=== PATIENT | female | born 1960 | race Caucasian/White ===

== ENCOUNTER → 2017-12-29 09:20 | Outpatient (CLI) | payer MEDICARE, SELFPAY ==
[2017-12-29 09:52] LABS: Absolute Lymphocyte Count 2.17 X10^3/ul (0.83-4.51); Absolute Neutrophil Count 1.9 X10^3/uL (2.0-7.7); Basophil# 0.07 X10^3/uL; Basophil% 1.5 % (0-1); Eosinophil# 0.11 X10^3/uL; Eosinophils% 2.4 % (0-5); Hematocrit 37.8 % (37-47); Lymphocyte # 2.17 X10^3/ul (4.0); Mean Corp Hgb Conc 34.4 g/gl (32-36); Mean Corpuscular Volume 90.2 fL (81-99); Mean Platelet Vol. 9.1 fl (6.2-12.0); Monocyte# 0.36 X10^3/uL; Monocyte% 7.8 % (0-10); Neutrophil % 41.1 % (47-70); Platelet Count 301 K/mm3 (150-450); RBC Distribution Width SD 42.1 fl (35.1-43.9); Red Blood Count 4.19 M/mm3 (4.2-5.4); White Blood Count 4.6 K/mm3 (4.4-11.0)
[2017-12-29 09:53] LABS: POSITIVE COUNT NO; POSITIVE DIFFERENTIAL NO; POSITIVE MORPHOLOGY NO
[2017-12-29 10:16] LABS: Hemoglobin A1c 6.5 % (4.2-6.3)
[2017-12-29 10:21] LABS: AST(SGOT) 14 U/L (15-37); Alanine Aminotransfer ALT/SGPT 24 U/L (13-56); Albumin, Serum 3.5 g/dL (3.2-5.0); Alkaline Phosphatase 72 U/L (45-117); Anion Gap 8 (5-15); BUN 10 mg/dL (7-18); BUN/Creat Ratio 16.9 RATIO (10-20); Calcium,Total 8.4 mg/dL (8.5-10.1); Chloride 106 mmol/L (98-107); Cholesterol 109 mg/dL (200); Creatinine, Serum 0.59 mg/dL (0.55-1.02); EST Glomerular Filtration Rate 110 mL/min (>60); Est Glom Filt Rate - Afr Amer 133 mL/min (>60); Globulin 3.5 g/dL (2.2-4.2); Glucose 102 mg/dL (74-106); High Density Lipoprotein 32 mg/dL; Potassium 3.2 mmol/L (3.5-5.1); Sodium Level 144 mmol/L (136-145); Triglycerides 93 mg/dL; Very Low Density Lipoprotein 19 mg/dL (5-40)
[2017-12-29 10:36] LABS: Microalbumin,Random Urine 22.3 mg/L (NO RANGE EST.); Microalbumin:Creatinine Ratio 9.6 mg/g CRE (<30 mg/g CRE)
[2017-12-30 11:50] LABS: Vitamin D,25 Hydroxy 102.5 ng/mL (29.95-100.01)
== END ==
PROVIDERS: Family Provider Family Medicine; PCP Family Medicine; Visit Provider Family Medicine
DX: I10 Essential (primary) hypertension (principal); E11.9 Type 2 diabetes mellitus without complications; E78.5 Hyperlipidemia, unspecified; E55.9 Vitamin D deficiency, unspecified
CPT/HCPCS: 36415; 80053; 80061; 82043; 82306; 82570; 83036; 85025

== ENCOUNTER → 2018-01-09 09:12 | Outpatient (CLI) | payer MEDICARE, SELFPAY ==
[2018-01-09 12:47] LABS: Vitamin D,25 Hydroxy 86.7 ng/mL (29.95-100.01)
== END ==
PROVIDERS: Family Provider Family Medicine; PCP Family Medicine; Visit Provider Family Medicine
DX: E55.9 Vitamin D deficiency, unspecified (principal)
CPT/HCPCS: 36415; 82306

== ENCOUNTER 2018-02-10 15:30 | Outpatient (RCR) | payer MEDICARE, SELFPAY ==
--- NOTE | 2018-02-08 09:15 | HP.PTEVAL_ITS ---
Patient's Visit Information BEL FREEMAN is a 57 year old F referred to Physical Therapy by Richard Birmingham MD with a diagnosis of BPPV. Date of Evaluation: 02/08/18 Physical Therapist: Richard Curtis DPT, OC - Visit Plan Frequency: 1-2x /Week Duration: 2-4 Weeks Plan: 1-2x/week for 2-4 weeks as needed for positional treatments and exercises - Subjective Subjective: Had vertigo 10-15 years ago and it has come back in the last 3 months. Insidious onset. Feels like spinning, lightheadedness with lying or turning. Can last seconds. Life is normal otherwise, balance feels good. Sleep is good. Activities are normal, not employed. Hobbies include gardening which can be difficult b/c looking down can cause the problem. Basic ADLs are without problems unless she is dizzy at the time and she has to rest. - Objective c/s AROM WFL and painfree. - R hallpike, = L for up torsional nystagmus delayed and lasting 15 seconds. Treated with L Florian. Following that then had a + L Hallpike for geotropic nystagmus lasting 25 seconds, treated with Florian again. Then had dizzyness with L hallpike and needed to sit up as she had dry heaves and felt nauseous. Wanted to stop treatment at that point. Walked out I adn feeling better and without balance issues. - Goals Goal 1:: Abolish dizzyness with lying down adn looking down. Goal Time Frame: 2-4 Weeks Goal 2:: Garden normally without symptoms. Goal Time Frame: 2-4 Weeks - Rehabilitation Potential Physical Therapy Diagnosis: BPPV, starting L post canal possibly turning into horizontal canal. Rehabilitation Potential: Good - Anticipated Interventions Patient/Client Instruction: Educate patient on: Condition, Plan of Care Other: to decrease dizzyness Comment: positional ex and treatments For the Purpose of:: To improve ability of physical actions for home/community/ work/leisure Other: to abolish dizzyness Thank you for the opportunity to evaluate your patient. For Medicare and Medicare HMO plans, please review the plan of care and approve it. It will need to be FAXED BACK to us at [phone] for Medicare purposes. Please let me know if there are questions or concerns regarding this plan of care. Physician Signature: Date:
--- NOTE | 2018-02-10 15:50 | HP.PTDCSUM ---
HP - PT D/C Summary It has been my pleasure to treat BEL FREEMAN under orders from Richard Birmingham MD, for the diagnosis of BPPV for a total of 2 visit(s). Discharge Date: 02/10/18 Please see the following information for a summary of their discharge status. - Subjective Subjective: Better. Did exercise without any dizzyness yesterday and today. Lie down last night without a problem. Mowed yard yard and planted without symptoms. Nothing bad looking up. - Overall Improvement % Improvement: 99 - Objective Objective/Function: - B hallpike and - roll test. VOR walking si no problem and asymptomatic. Balance is good. - Goals Goal 1:: Abolish dizzyness with lying down adn looking down. Goal Progress: Goal Met Goal 2:: Garden normally without symptoms. Goal Progress: Goal Met - Plan Plan: D/C - D/C Information Discharge Comments: Dizzy resolved and negative positional testing. Blaance is good and activities/gardening/sleeping position back to normal. If there are questions or concerns regarding this patient's physical therapy, please feel free to call me at [phone]. Thank you for the referral of this patient. Sincerely, Richard Curtis, [place], OC
== END 2018-02-10 19:00 | disposition home or self-care (01) ==
LOC: PT 15:30
PROVIDERS: Family Provider Family Medicine; PCP Family Medicine; Visit Provider Otolaryngology
DX: H81.10 Benign paroxysmal vertigo, unspecified ear (principal)
CPT/HCPCS: 97161; 97530

== ENCOUNTER → 2018-03-21 07:47 | Outpatient (CLI) | payer MEDICARE, SELFPAY ==
--- NOTE | 2018-03-21 07:48 | CT_ITS ---
STUDY: CTA CHEST/THORAX REASON FOR EXAM: Female, 58 years old. Thoracic aortic aneurysm follow-up. RADIATION DOSAGE (If Supplied By Facility): CTDIvol = ( 15.98 ) mGy, DLP = ( 735.18 ) mGycm TECHNIQUE: The examination was performed with the intravenous administration of 100 ml of Isovue 300 contrast material. Post-processing of the angiographic images was performed, with multiplanar reformation and 3D reconstruction. Individualized dose optimization techniques were used for this CT. COMPARISON: IV contrast-enhanced CT chest/thorax March 16, 2017. FINDINGS: Normal enhancement of the main pulmonary artery and right and left pulmonary arteries. Normal enhancement of the bilateral peripheral pulmonary arteries. There is no demonstrated pulmonary embolism. The mid ascending aorta is 3.7 x 3.95 cm on series 602 image 120, series 601 image 144. On axial series 2 image 46 (which does not fully account for the curved contour of the aorta, the diameters are 3.9 x 3.5 cm. The aortic root at the level of the sinuses of Valsalva is 3.8 x 4.15 cm. There is stable atherosclerotic calcification of the aortic arch and proximal brachiocephalic arteries. There is no demonstrated aortic dissection. Normal heart and pericardium. There are calcifications of the coronary arteries. There is a 1.4 x 0.75 x 0.9 cm precarinal lymph node with a fatty hilus. No suspicious adenopathy Normal hilar regions. Normal visualized trachea and bronchi. There is subsegmental atelectasis or scarring in the posterior medial basilar right lower lobe and posterolateral basilar left lower lobe. Normal pleura. Normal chest wall structures. There are stable multilevel degenerative changes of the thoracic spine. There are well-corticated shallow invaginations of numerous thoracic vertebral and upper lumbar endplates, consistent with benign Schmorl's nodes. There is a stable small to moderate size retrocardiac paraesophageal hiatal hernia. Subtle haziness noted in the central mesentery. CT/CTA Chest W/WO Contrast IMPRESSION: 1. Stable 3.95 cm fusiform ectasia of the ascending aorta. 2. No demonstrated pulmonary embolism or arterial dissection. 3. Atelectasis or scarring in the inferior lung bases again noted. 4. Moderate vascular calcifications of the coronary arteries. 5. Stable degenerative changes and multilevel focal endplate invaginations of the thoracic spine. 6. Stable small to moderate size retrocardiac hiatal hernia. Electronically Signed: Harmeet Torres MD at 20:03 EDT , Service support ,
[2018-03-21 08:00] LABS: CREATININE FINGERSTICK 0.7 mg/dL (0.55-1.02)
== END ==
PROVIDERS: Family Provider Family Medicine; PCP Family Medicine; Visit Provider Internal Medicine Cardiovascular Disease
DX: I71.2 Thoracic aortic aneurysm, without rupture (principal)
CPT/HCPCS: 71275; Q9967

== ENCOUNTER → 2018-03-28 08:18 | Outpatient (CLI) | payer MEDICARE, SELFPAY ==
[2018-03-28 11:34] LABS: Absolute Lymphocyte Count 1.76 X10^3/ul (0.83-4.51); Basophil# 0.02 X10^3/uL; Basophil% 0.5 % (0-1); Eosinophil# 0.06 X10^3/uL; Eosinophils% 1.4 % (0-5); Hematocrit 39.5 % (37-47); Hemoglobin 12.8 g/dl (12.0-15.0); Lymphocyte # 1.76 X10^3/ul (4.0); Lymphocyte % 42.4 % (19-41); Mean Corp Hgb Conc 32.4 g/gl (32-36); Mean Corpuscular Volume 92.5 fL (81-99); Mean Platelet Vol. 9.7 fl (6.2-12.0); Monocyte# 0.33 X10^3/uL; Neutrophil # 1.98 X10^3/uL (2.7-7.7); Neutrophil % 47.7 % (47-70); Platelet Count 283 K/mm3 (150-450); RBC Distribution Width CV 13.3 % (11.6-14.6); RBC Distribution Width SD 44.6 fl (35.1-43.9); Red Blood Count 4.27 M/mm3 (4.2-5.4); White Blood Count 4.2 K/mm3 (4.4-11.0)
[2018-03-28 11:35] LABS: POSITIVE COUNT NO; POSITIVE DIFFERENTIAL NO; POSITIVE MORPHOLOGY NO
[2018-03-28 11:52] LABS: AST(SGOT) 15 U/L (15-37); Alanine Aminotransfer ALT/SGPT 23 U/L (13-56); Albumin, Serum 3.6 g/dL (3.2-5.0); Alkaline Phosphatase 68 U/L (45-117); Anion Gap 7 (5-15); BUN 11 mg/dL (7-18); BUN/Creat Ratio 18.5 RATIO (10-20); Chloride 105 mmol/L (98-107); Cholesterol 138 mg/dL (200); EST Glomerular Filtration Rate 109 mL/min (>60); Est Glom Filt Rate - Afr Amer 132 mL/min (>60); Globulin 3.6 g/dL (2.2-4.2); Glucose 101 mg/dL (74-106); High Density Lipoprotein 39 mg/dL; Potassium 3.9 mmol/L (3.5-5.1); Protein, Total 7.2 g/dL (6.4-8.2); Sodium Level 140 mmol/L (136-145); Triglycerides 150 mg/dL; Very Low Density Lipoprotein 30 mg/dL (5-40)
[2018-03-28 11:58] LABS: Hemoglobin A1c 6.4 % (4.2-6.3)
[2018-03-28 12:06] LABS: Microalbumin,Random Urine 14.4 mg/L (NO RANGE EST.); Microalbumin:Creatinine Ratio 9.5 mg/g CRE (<30 mg/g CRE)
[2018-03-29 09:49] LABS: Vitamin D,25 Hydroxy 56.2 ng/mL (29.95-100.01)
== END ==
PROVIDERS: Visit Provider Family Medicine
DX: I10 Essential (primary) hypertension (principal); E11.9 Type 2 diabetes mellitus without complications; E55.9 Vitamin D deficiency, unspecified
CPT/HCPCS: 36415; 80053; 80061; 82043; 82306; 82570; 83036; 85025

== ENCOUNTER 2018-05-09 10:00 | Outpatient (RCR) | payer MEDICARE, SELFPAY | END 2018-05-26 23:59 | LOC: DC 10:00 | PROVIDERS: Family Provider Family Medicine; PCP Family Medicine; Visit Provider Family Medicine | DX: E11.9 Type 2 diabetes mellitus without complications (principal); Z71.3 Dietary counseling and surveillance | CPT/HCPCS: 97802; G0108 ==

== ENCOUNTER 2018-06-01 09:30 | Outpatient (RCR) | payer MEDICARE, SELFPAY | END 2018-06-25 23:59 | LOC: DC 09:30 | PROVIDERS: Family Provider Family Medicine; PCP Family Medicine; Visit Provider Family Medicine | DX: E11.9 Type 2 diabetes mellitus without complications (principal); Z71.3 Dietary counseling and surveillance ==

== ENCOUNTER → 2018-08-21 08:18 | Outpatient (CLI) | payer MEDICARE, SELFPAY ==
[2018-08-21 08:28] LABS: Mucous, Urine 0 SEEN /hpf (<or=2+); Red Blood Cells-Urine 0 SEEN /hpf (0-5)
[2018-08-21 12:02] LABS: Color, Urine Yellow (Yellow); Glucose, Dipstick Normal (Normal); Ketone-Dipstick Negative (Negative); Leukocyte Esterase-Dipstick 100 /ul (Negative); Nitrite-Dipstick Negative (Negative); Occult Blood-Urine 10 /ul (Negative); Protein-Dipstick 15 mg/dl (Negative); Urine Bilirubin Dipstick Negative (Negative); Urine Clarity Sl. Cloudy (Clear); Urine Urobilinogen Normal (Normal)
[2018-08-21 12:22] LABS: Bacteria RARE /hpf (None Seen); Squamous Epithelial Cells - UA 0-5 SEEN /hpf (5-10); White Blood Cells 0-5 SEEN /hpf (0-5)
[2018-08-21 12:24] LABS: Absolute Lymphocyte Count 1.95 X10^3/ul (0.83-4.51); Absolute Neutrophil Count 1.8 X10^3/uL (2.0-7.7); Basophil# 0.02 X10^3/uL; Basophil% 0.5 % (0-1); Eosinophil# 0.05 X10^3/uL; Eosinophils% 1.2 % (0-5); Hematocrit 39.8 % (37-47); Hemoglobin 12.9 g/dl (12.0-15.0); Lymphocyte # 1.95 X10^3/ul (4.0); Lymphocyte % 47.6 % (19-41); Mean Corp Hgb Conc 32.4 g/gl (32-36); Mean Corpuscular Volume 92.6 fL (81-99); Mean Platelet Vol. 9.4 fl (6.2-12.0); Microalbumin,Random Urine 17.1 mg/L (NO RANGE EST.); Microalbumin:Creatinine Ratio 7.8 mg/g CRE (<30 mg/g CRE); Monocyte# 0.32 X10^3/uL; Monocyte% 7.8 % (0-10); Neutrophil # 1.76 X10^3/uL (2.7-7.7); Neutrophil % 42.9 % (47-70); Platelet Count 297 K/mm3 (150-450); RBC Distribution Width CV 13.5 % (11.6-14.6); RBC Distribution Width SD 45.6 fl (35.1-43.9); White Blood Count 4.1 K/mm3 (4.4-11.0)
[2018-08-21 12:25] LABS: POSITIVE COUNT NO; POSITIVE DIFFERENTIAL NO; POSITIVE MORPHOLOGY NO
[2018-08-21 12:35] LABS: ALB/GLOB Ratio 1.1 RATIO (0.9-2.4); AST(SGOT) 20 U/L (15-37); Alanine Aminotransfer ALT/SGPT 27 U/L (13-56); Albumin, Serum 3.7 g/dL (3.2-5.0); Alkaline Phosphatase 72 U/L (45-117); Anion Gap 13 (5-15); BUN 11 mg/dL (7-18); BUN/Creat Ratio 17.4 RATIO (10-20); Chloride 104 mmol/L (98-107); Cholesterol 138 mg/dL (200); Creatinine, Serum 0.63 mg/dL (0.55-1.02); EST Glomerular Filtration Rate 102 mL/min (>60); Est Glom Filt Rate - Afr Amer 123 mL/min (>60); Globulin 3.5 g/dL (2.2-4.2); Glucose 101 mg/dL (74-106); High Density Lipoprotein 42 mg/dL; Potassium 3.6 mmol/L (3.5-5.1); Protein, Total 7.2 g/dL (6.4-8.2); Sodium Level 144 mmol/L (136-145); Triglycerides 144 mg/dL; Very Low Density Lipoprotein 29 mg/dL (5-40)
[2018-08-21 12:37] LABS: Hemoglobin A1c 6.7 % (4.2-6.3)
[2018-08-21 12:45] LABS: Vitamin D,25 Hydroxy 52.8 ng/mL (29.95-100.01)
== END ==
PROVIDERS: Family Provider Family Medicine; PCP Family Medicine; Visit Provider Family Medicine
DX: E78.5 Hyperlipidemia, unspecified (principal); E11.9 Type 2 diabetes mellitus without complications; I10 Essential (primary) hypertension; E55.9 Vitamin D deficiency, unspecified
CPT/HCPCS: 36415; 80053; 80061; 81001; 82043; 82306; 82570; 83036; 85025

== ENCOUNTER → 2019-01-01 | Outpatient (CLI) | payer MEDICARE, SELFPAY ==
[2019-01-01 10:00] LABS: Absolute Lymphocyte Count 1.82 X10^3/ul (0.83-4.51); Absolute Neutrophil Count 1.6 X10^3/uL (2.0-7.7); Basophil# 0.03 X10^3/uL; Basophil% 0.8 % (0-1); Eosinophil# 0.08 X10^3/uL; Eosinophils% 2.1 % (0-5); Hematocrit 39.1 % (37-47); Hemoglobin 13.2 g/dl (12.0-15.0); Lymphocyte # 1.82 X10^3/ul (4.0); Lymphocyte % 47.9 % (19-41); Mean Corp Hgb Conc 33.8 g/gl (32-36); Mean Corpuscular Hgb 30.8 pg (27.0-32.0); Mean Corpuscular Volume 91.4 fL (81-99); Mean Platelet Vol. 9.8 fl (6.2-12.0); Monocyte# 0.32 X10^3/uL; Monocyte% 8.4 % (0-10); Neutrophil # 1.55 X10^3/uL (2.7-7.7); Neutrophil % 40.8 % (47-70); Platelet Count 280 K/mm3 (150-450); RBC Distribution Width CV 13.3 % (11.6-14.6); RBC Distribution Width SD 44.2 fl (35.1-43.9); Red Blood Count 4.28 M/mm3 (4.2-5.4); White Blood Count 3.8 K/mm3 (4.4-11.0)
[2019-01-01 10:06] LABS: POSITIVE COUNT NO; POSITIVE DIFFERENTIAL NO; POSITIVE MORPHOLOGY NO
[2019-01-01 10:15] LABS: Hemoglobin A1c 6.1 % (4.2-6.3)
[2019-01-01 10:20] LABS: Microalbumin,Random Urine 17.7 mg/L (NO RANGE EST.); Microalbumin:Creatinine Ratio 10.7 mg/g CRE (<30 mg/g CRE)
[2019-01-01 10:39] LABS: ALB/GLOB Ratio 1.2 RATIO (0.9-2.4); AST(SGOT) 15 U/L (15-37); Alanine Aminotransfer ALT/SGPT 22 U/L (13-56); Albumin, Serum 3.8 g/dL (3.2-5.0); Alkaline Phosphatase 69 U/L (45-117); Anion Gap 5 (5-15); BUN 11 mg/dL (7-18); BUN/Creat Ratio 18.3 RATIO (10-20); Calcium,Total 8.9 mg/dL (8.5-10.1); Chloride 106 mmol/L (98-107); Cholesterol 150 mg/dL (200); EST Glomerular Filtration Rate 108 mL/min (>60); Est Glom Filt Rate - Afr Amer 131 mL/min (>60); Globulin 3.3 g/dL (2.2-4.2); Glucose 116 mg/dL (74-106); High Density Lipoprotein 44 mg/dL; Potassium 3.5 mmol/L (3.5-5.1); Protein, Total 7.1 g/dL (6.4-8.2); Sodium Level 141 mmol/L (136-145); Triglycerides 181 mg/dL; Very Low Density Lipoprotein 36 mg/dL (5-40)
== END | disposition home or self-care (01) ==
LOC: MTLAB 08:00
PROVIDERS: Family Provider Family Medicine; PCP Family Medicine; Visit Provider Family Medicine
DX: I10 Essential (primary) hypertension (principal); E11.9 Type 2 diabetes mellitus without complications; E78.5 Hyperlipidemia, unspecified
CPT/HCPCS: 36415; 80053; 80061; 82043; 82570; 83036; 85025

== ENCOUNTER → 2019-01-02 | Outpatient (CLI) | payer MEDICARE, SELFPAY ==
[2019-01-02 09:23] VITALS: BMI 37.2
[2019-01-06 15:53] LABS: HPV APTIMA, High Risk Negative (Negative)
== END | disposition home or self-care (01) ==
LOC: LABSPEC 12:52
PROVIDERS: Family Provider Family Medicine; PCP Family Medicine; Referring Provider Obstetrics & Gynecology; Visit Provider Obstetrics & Gynecology
DX: Z12.4 Encounter for screening for malignant neoplasm of cervix (principal)
CPT/HCPCS: 87624; 88175; G0145

== ENCOUNTER → 2019-01-25 | Outpatient (CLI) | payer MEDICARE, SELFPAY ==
[2019-01-02 09:23] VITALS: BMI 37.2
--- NOTE | 2019-01-25 07:38 | BI_ITS ---
MAMMOGRAPHY - BILATERAL SCREENING REASON FOR EXAM: Female, 58 years old. Routine annual screening examination. PERTINENT HISTORY: Aunt with breast cancer. TECHNIQUE: Digital bilateral breast andrea (3D mammographic acquisition) in the CC and MLO projections. 2-D mediolateral oblique (MLO) and craniocaudad (CC) views of both breasts were obtained. CAD: Full Field Digital Mammography with Computer Added Detection was performed. COMPARISON: Comparison is made with prior study dated October 07, 2017 and September 30, 2016. FINDINGS: Breast Composition: There are scattered areas of fibroglandular density. There are no dominant masses or suspicious calcifications. No other significant abnormalities are identified. There has been no significant change since the prior study. BI/SCREEN MAMM (CAD) W/ANDREA BILAT IMPRESSION: Stable bilateral screening mammogram. Yearly follow-up mammogram recommended. (A) ASSESSMENT CATEGORY: BIRADS Category 1: Negative. A letter regarding these results will be sent to the patient by the facility within 30 days. Approximately 10% of breast cancers are not detected by mammography. A normal mammogram should not delay biopsy of a clinically suspicious abnormality. [id number] Electronically Signed: Issac Monae, at 10:59 EDT , Service support ,
== END | disposition home or self-care (01) ==
PROVIDERS: Family Provider Family Medicine; PCP Family Medicine; Referring Provider Obstetrics & Gynecology; Visit Provider Obstetrics & Gynecology
DX: Z12.31 Encounter for screening mammogram for malignant neoplasm of breast (principal)
CPT/HCPCS: 77063; 77067

== ENCOUNTER → 2019-05-01 | Outpatient (CLI) | payer MEDICARE, SELFPAY ==
[2019-04-11 15:46] VITALS: BMI 36.8
--- NOTE | 2019-05-01 09:58 | CT_ITS ---
STUDY: CTA CHEST WITH CONTRAST REASON FOR EXAM: Female, 59 years old. Follow up thoracic aortic aneurysm. RADIATION DOSAGE (If Supplied By Facility): CTDIvol = ( 14.82 ) mGy, DLP = ( 639.50 ) mGycm TECHNIQUE: Transaxial imaging was performed following intravenous administration of 100ML ml of Isovue 300 contrast material. Coronal and sagittal reformatted images were created. Individualized dose optimization techniques were used for this CT. COMPARISON: 04/20/2018 FINDINGS: There is a stable 4.1 x 3.8 cm aneurysm of the ascending aorta. The aortic arch and descending thoracic aorta are normal in caliber. There is no evidence of thoracic aortic dissection. There is no evidence of pulmonary embolus. There are no pulmonary infiltrates or pleural effusions. There is stable scarring at the lung bases. There is no pneumothorax. The heart and pericardium are within normal limits. There is no thoracic lymphadenopathy. There is no evidence of thoracic aortic aneurysm. There is a stable hiatal hernia. There are no destructive osseous lesions. CT/Chest WITH Contrast IMPRESSION: Stable 4.1 x 3.8 cm ascending aortic aneurysm. No evidence of thoracic aortic dissection. No evidence of pulmonary embolus. Stable scarring in the lung bases. Otherwise, clear lungs. Stable hiatal hernia. Electronically Signed: Jas Thomas, at 17:17 EDT Tel , Service support ,
[2019-05-01 10:11] LABS: CREATININE FINGERSTICK 0.7 mg/dL (0.55-1.02); EGFR FINGERSTICK > 60.0000 mL/min (>60)
== END | disposition home or self-care (01) ==
PROVIDERS: Family Provider Family Medicine; PCP Family Medicine; Referring Provider Internal Medicine Cardiovascular Disease; Visit Provider Internal Medicine Cardiovascular Disease
DX: I71.2 Thoracic aortic aneurysm, without rupture (principal); R07.9 Chest pain, unspecified
CPT/HCPCS: 71260; Q9967

== ENCOUNTER → 2019-05-14 | Outpatient (CLI) | payer MEDICARE, SELFPAY ==
[2019-04-11 15:46] VITALS: BMI 36.8
[2019-05-14 10:44] LABS: Absolute Lymphocyte Count 1.73 X10^3/uL (0.83-4.51); Absolute Neutrophil Count 2.2 X10^3/uL (2.0-7.7); Basophil# 0.04 X10^3/uL; Basophil% 0.9 % (0-1); Eosinophil# 0.05 X10^3/uL; Eosinophils% 1.2 % (0-5); Hematocrit 41.2 % (37-47); Hemoglobin 13.8 g/dL (12.0-15.0); Lymphocyte # 1.73 X10^3/ul (4.0); Lymphocyte % 40.5 % (19-41); Mean Corp Hgb Conc 33.5 g/dL (32-36); Mean Corpuscular Hgb 31.4 pg (27.0-32.0); Mean Corpuscular Volume 93.6 fL (81-99); Mean Platelet Vol. 9.3 fl (6.2-12.0); Monocyte# 0.29 X10^3/uL; Monocyte% 6.8 % (0-10); NRBC Flagged by Analyzer 0 % (0-5); Neutrophil # 2.15 X10^3/uL (2.7-7.7); Neutrophil % 50.4 % (47-70); Platelet Count 287 K/mm3 (150-450); RBC Distribution Width CV 12.9 % (11.6-14.6); RBC Distribution Width SD 44.4 fl (35.1-43.9); White Blood Count 4.3 K/mm3 (4.4-11.0)
[2019-05-14 11:26] LABS: Hemoglobin A1c 5.9 % (4.2-6.3)
[2019-05-14 11:28] LABS: AST(SGOT) 16 U/L (15-37); Alanine Aminotransfer ALT/SGPT 26 U/L (13-56); Albumin, Serum 3.8 g/dL (3.2-5.0); Alkaline Phosphatase 74 U/L (45-117); Anion Gap 7 (5-15); BUN 13 mg/dL (7-18); BUN/Creat Ratio 19.7 RATIO (10-20); Calcium,Total 9.4 mg/dL (8.5-10.1); Chloride 104 mmol/L (98-107); Cholesterol 148 mg/dL (200); Creatinine, Serum 0.66 mg/dL (0.55-1.02); EST Glomerular Filtration Rate 97 mL/min (>60); Est Glom Filt Rate - Afr Amer 117 mL/min (>60); Globulin 3.7 g/dL (2.2-4.2); Glucose 106 mg/dL (74-106); High Density Lipoprotein 54 mg/dL; Potassium 3.9 mmol/L (3.5-5.1); Protein, Total 7.5 g/dL (6.4-8.2); Sodium Level 140 mmol/L (136-145); Triglycerides 95 mg/dL; Very Low Density Lipoprotein 19 mg/dL (5-40)
[2019-05-14 11:31] LABS: Vitamin D,25 Hydroxy 43.9 ng/mL (29.95-100.01)
== END | disposition home or self-care (01) ==
LOC: MFPLAB 08:31
PROVIDERS: Family Provider Family Medicine; PCP Family Medicine; Referring Provider Family Medicine; Visit Provider Family Medicine
DX: E78.5 Hyperlipidemia, unspecified (principal); E11.9 Type 2 diabetes mellitus without complications; I10 Essential (primary) hypertension; E55.9 Vitamin D deficiency, unspecified
CPT/HCPCS: 36415; 80053; 80061; 82306; 83036; 85025

== ENCOUNTER → 2020-01-08 10:08 | Outpatient (CLI) | payer MEDICARE, SELFPAY ==
[2019-04-11 15:46] VITALS: BMI 36.8
[2020-01-08 12:13] LABS: Absolute Lymphocyte Count 1.64 X10^3/uL (0.83-4.51); Absolute Neutrophil Count 2.6 X10^3/uL (2.0-7.7); Basophil# 0.04 X10^3/uL; Basophil% 0.9 % (0-1); Eosinophil# 0.05 X10^3/uL; Eosinophils% 1.1 % (0-5); Hematocrit 40.5 % (37-47); Hemoglobin 13.6 g/dL (12.0-15.0); Lymphocyte # 1.64 X10^3/ul (4.0); Mean Corp Hgb Conc 33.6 g/dL (32-36); Mean Corpuscular Hgb 30.6 pg (27.0-32.0); Mean Corpuscular Volume 91.2 fL (81-99); Mean Platelet Vol. 9.7 fl (6.2-12.0); Monocyte# 0.34 X10^3/uL; Monocyte% 7.3 % (0-10); NRBC Flagged by Analyzer 0 % (0-5); Neutrophil % 55.5 % (47-70); Platelet Count 319 K/mm3 (150-450); RBC Distribution Width CV 12.8 % (11.6-14.6); RBC Distribution Width SD 42.6 fl (35.1-43.9); Red Blood Count 4.44 M/mm3 (4.2-5.4); White Blood Count 4.7 K/mm3 (4.4-11.0)
[2020-01-08 12:27] LABS: Vitamin D,25 Hydroxy 57.5 ng/mL
[2020-01-08 12:28] LABS: ALB/GLOB Ratio 1.1 RATIO (0.9-2.4); AST(SGOT) 19 U/L (15-37); Alanine Aminotransfer ALT/SGPT 25 U/L (13-56); Albumin, Serum 3.9 g/dL (3.2-5.0); Alkaline Phosphatase 82 U/L (45-117); Anion Gap 6 (5-15); BUN 8 mg/dL (7-18); BUN/Creat Ratio 12.1 RATIO (10-20); Calcium,Total 9.3 mg/dL (8.5-10.1); Chloride 99 mmol/L (98-107); Cholesterol 140 mg/dL (200); Creatinine, Serum 0.66 mg/dL (0.55-1.02); EST Glomerular Filtration Rate 97 mL/min (>60); Est Glom Filt Rate - Afr Amer 117 mL/min (>60); Globulin 3.6 g/dL (2.2-4.2); Glucose 135 mg/dL (74-106); High Density Lipoprotein 47 mg/dL; Potassium 3.4 mmol/L (3.5-5.1); Protein, Total 7.5 g/dL (6.4-8.2); Sodium Level 135 mmol/L (136-145); Triglycerides 153 mg/dL; Very Low Density Lipoprotein 31 mg/dL (5-40)
[2020-01-08 12:34] LABS: Hemoglobin A1c 5.9 % (4.2-6.3)
[2020-01-08 12:40] LABS: Microalbumin,Random Urine 62.1 mg/L (NO RANGE EST.); Microalbumin:Creatinine Ratio 48.1 mg/g CRE (<30 mg/g CRE)
== END ==
PROVIDERS: PCP Family Medicine; Referring Provider Family Medicine; Visit Provider Family Medicine
DX: E55.9 Vitamin D deficiency, unspecified (principal); E78.5 Hyperlipidemia, unspecified; I10 Essential (primary) hypertension; E11.9 Type 2 diabetes mellitus without complications
CPT/HCPCS: 36415; 80053; 80061; 82043; 82306; 82570; 83036; 85025

== ENCOUNTER → 2020-01-28 07:43 | Outpatient (CLI) | payer MEDICARE, SELFPAY ==
[2019-04-11 15:46] VITALS: BMI 36.8
--- NOTE | 2020-01-28 07:44 | BI_ITS ---
MAMMOGRAPHY - BILATERAL SCREENING REASON FOR EXAM: Female, 59 years old. Routine annual screening examination. PERTINENT HISTORY: Aunt with breast cancer. TECHNIQUE: Digital bilateral breast andrea (3D mammographic acquisition) in the CC and MLO projections. 2-D mediolateral oblique (MLO) and craniocaudad (CC) views of both breasts were obtained. CAD: Full Field Digital Mammography with Computer Added Detection was performed. COMPARISON: Comparison is made with prior study dated January 25, 2019 and October 07, 2017. FINDINGS: Breast Composition: There are scattered areas of fibroglandular density. There are no dominant masses or suspicious calcifications. For collateral breast asymmetry in the mid central portion of the left breast. The patient will be recalled for additional views including 90 degree lateral and rolled views. Stable benign-appearing bilateral axillary lymph nodes. No other significant abnormalities are identified. BI/SCREEN MAMM (CAD) W/ANDREA BILAT IMPRESSION: Focal asymmetry of breast tissue in the central midportion of the left breast as described. The patient will be recalled for additional views. Recall Side: Left Breast ASSESSMENT CATEGORY: BIRADS Category 0: Incomplete. Need additional imaging evaluation. A letter regarding these results will be sent to the patient by the facility within 30 days. Approximately 10% of breast cancers are not detected by mammography. A normal mammogram should not delay biopsy of a clinically suspicious abnormality. [id number] Electronically Signed: Issac Monae, at 8:49 EDT , Service support ,
== END ==
PROVIDERS: Family Provider Family Medicine; PCP Family Medicine; Referring Provider Obstetrics & Gynecology; Visit Provider Obstetrics & Gynecology
DX: Z12.31 Encounter for screening mammogram for malignant neoplasm of breast (principal)
CPT/HCPCS: 77063; 77067

== ENCOUNTER → 2020-02-01 08:52 | Outpatient (CLI) | payer MEDICARE, SELFPAY ==
[2019-04-11 15:46] VITALS: BMI 36.8
--- NOTE | 2020-02-01 08:53 | US_ITS ---
STUDY: ULTRASOUND BREAST - LEFT REASON FOR EXAM: Female, 59 years old. Abnormal screening mammogram. TECHNIQUE: Axial and longitudinal images of the LEFT breast were performed with a high resolution ultrasound transducer. # OF IMAGES: 35 COMPARISON: Comparison is made with prior mammogram dated January 28, 2020 and February 01, 2020. FINDINGS: LEFT Breast: The upper half of the left breast was examined by ultrasound. No sonographic abnormality is seen. US/Breast Limited Unilateral IMPRESSION: No sonographic abnormality is seen. ASSESSMENT CATEGORY: BIRADS Category 1: Negative. A letter regarding these results will be sent to the patient by the facility within 30 days. Electronically Signed: Issac Monae, at 12:15 EDT , Service support ,
--- NOTE | 2020-02-01 08:53 | BI_ITS ---
MAMMOGRAPHY - UNILATERAL DIAGNOSTIC: LEFT BREAST REASON FOR EXAM: Female, 59 years old. Abnormal screening mammogram. PERTINENT HISTORY: Aunt with breast cancer. TECHNIQUE: 90 degree lateral and rolled views of the left breast were obtained. CAD: Full Field Digital Mammography with Computer Added Detection was performed. COMPARISON: Comparison is made with prior mammogram dated January 28, 2020. FINDINGS: Breast Composition: There are scattered areas of fibroglandular density. Persistent asymmetry of breast tissue in the mid central portion of the left breast. Correlation with ultrasound is recommended. No other significant abnormalities are identified. BI/DIAG MAMM W/CAD, UNILAT IMPRESSION: Persistent asymmetry in the mid central portion of the left breast as described. Correlation with ultrasound is recommended. ASSESSMENT CATEGORY: BIRADS Category 0: Incomplete. Need additional imaging evaluation. A letter regarding these results will be sent to the patient by the facility within 30 days. Approximately 10% of breast cancers are not detected by mammography. A normal mammogram should not delay biopsy of a clinically suspicious abnormality. Electronically Signed: Issac Monae, at 10:24 EDT , Service support ,
== END ==
PROVIDERS: PCP Family Medicine; Referring Provider Obstetrics & Gynecology; Visit Provider Obstetrics & Gynecology
DX: N64.89 Other specified disorders of breast (principal)
CPT/HCPCS: 76642; 77065

== ENCOUNTER → 2020-02-14 | Outpatient (CLI) | payer MEDICARE, SELFPAY ==
[2020-02-14 13:51] VITALS: BMI 36.8
== END | disposition home or self-care (01) ==
LOC: LABSPEC 17:06
PROVIDERS: PCP Family Medicine; Visit Provider Obstetrics & Gynecology
DX: N89.8 Other specified noninflammatory disorders of vagina (principal)
CPT/HCPCS: 87070; 87205

== ENCOUNTER → 2020-05-02 08:08 | Outpatient (CLI) | payer MEDICARE, SELFPAY ==
[2020-04-14 08:54] VITALS: BMI 37.2
--- NOTE | 2020-05-02 08:08 | CT_ITS ---
STUDY: CT CHEST WITH CONTRAST REASON FOR EXAM: Female, 60 years old. TAA f/u RADIATION DOSAGE (If Supplied By Facility): CTDIvol = ( 15.98 ) mGy, DLP = ( 627.24 ) mGycm TECHNIQUE: Transaxial imaging was performed following intravenous administration of IV 100mL Isovue-300. Multiplanar coronal and sagittal images were reformatted. Individualized dose optimization techniques were used for this CT. COMPARISON: Comparison is made with prior study dated 03/16/2017. FINDINGS: Stable increased linear markings at the left lung base infiltrate with scarring. Stable mild scarring and bronchiectasis in the posterior medial segment of the right lower lobe. There is no demonstrated pleural abnormality. Normal heart and pericardium. Normal mediastinum. Normal hilar regions. Normal enhanced pulmonary arteries. Stable appearance of the ascending thoracic aorta with a transverse dimension of 4 cm. There are multi-level degenerative changes of the thoracic spine. Moderate sized hiatal hernia. CT/Chest WITH Contrast IMPRESSION: Stable examination. Electronically Signed: Issac Monae, at 11:01 EDT , Service support ,
[2020-05-02 08:20] LABS: CREATININE FINGERSTICK 0.6 mg/dL (0.55-1.02); EGFR FINGERSTICK > 60.0000 mL/min (>60)
--- NOTE | 2020-05-02 08:28 | AAAS_ITS ---
Reason For Study: Thoracic aorta aneurysm Aorta Measurements Aorta Doppler Measurements Proximal aorta measures1.12 x 1.12cm. in cross- Peak systolic flow velocities within the proximal sectional axis. aorta measure 79.3 cm/sec. Proximal aorta measures1.01cm. in longitudinal Peak systolic flow velocities within the mid aorta axis. measure 72.0 cm/sec. Mid aorta measures0.98 x 1.0cm. in cross-sectionalPeak systolic flow velocities within the distal axis. aorta measure 73.2 cm/sec. Mid aorta measures.99cm. in longitudinal axis. Distal aorta measures1.06 x 1.08cm. in cross- sectional axis. Distal aorta measures1.1cm. in longitudinal axis. Left Iliac Artery Left iliac artery measures 0.96 x 1.01 cm. in the cross-sectional axis. Left iliac artery measures 0.94 cm. in the longitudinal axis. Peak systolic velocity in the left iliac artery measures 103.9 cm/sec. Right Iliac Artery Right iliac artery measures 0.96 x 1.11 cm. in the cross-sectional axis. Right iliac artery measures 0.98 cm. in the longitudinal axis. Peak systolic velocity in the right iliac artery measures 107.6 cm/sec. Procedure Aorta IVC Iliac vasculature or bypass grafts [id number]. Technically difficult. Exam performed in department. Interpretation Summary Maximal abdominal aortic dimensions proximally at 1.12 x 1.12 cm in diameter. Normal flow rates identified. Left common iliac 0.96 x 1.01 cm in diameter. Right common iliac 0.96 x 1.11 cm in diameter No evidence for abdominal aortic or iliac artery aneurysmal disease Ordering Physician: Lino Brownlee Referring Physician: [place] Performed By: Isabel Redmond, ANASTASIACS, RVT
== END ==
PROVIDERS: PCP Family Medicine; Referring Provider Internal Medicine Cardiovascular Disease; Visit Provider Internal Medicine Cardiovascular Disease
DX: I71.2 Thoracic aortic aneurysm, without rupture (principal); E78.5 Hyperlipidemia, unspecified; I10 Essential (primary) hypertension
CPT/HCPCS: 71260; 76706; Q9967

== ENCOUNTER → 2020-08-05 08:20 | Outpatient (CLI) | payer MEDICARE, SELFPAY ==
[2020-04-14 08:54] VITALS: BMI 37.2
[2020-08-05 08:23] LABS: Bacteria 0 SEEN /hpf (None Seen); Mucous, Urine 0 SEEN /hpf (<or=2+); Red Blood Cells-Urine 0 SEEN /hpf (0-5)
[2020-08-05 09:49] LABS: Absolute Lymphocyte Count 1.46 X10^3/uL (0.83-4.51); Absolute Neutrophil Count 1.8 X10^3/uL (2.0-7.7); Basophil# 0.04 X10^3/uL; Basophil% 1.1 % (0-1); Eosinophil# 0.07 X10^3/uL; Eosinophils% 1.9 % (0-5); Hematocrit 38.2 % (37-47); Hemoglobin 12.6 g/dL (12.0-15.0); Lymphocyte # 1.46 X10^3/ul (4.0); Lymphocyte % 39.6 % (19-41); Mean Corpuscular Hgb 30.5 pg (27.0-32.0); Mean Corpuscular Volume 92.5 fL (81-99); Mean Platelet Vol. 9.3 fl (6.2-12.0); Monocyte# 0.37 X10^3/uL; NRBC Flagged by Analyzer 0 % (0-5); Neutrophil # 1.75 X10^3/uL (2.7-7.7); Neutrophil % 47.4 % (47-70); Platelet Count 293 K/mm3 (150-450); RBC Distribution Width CV 12.4 % (11.6-14.6); RBC Distribution Width SD 42.5 fl (35.1-43.9); Red Blood Count 4.13 M/mm3 (4.2-5.4); White Blood Count 3.7 K/mm3 (4.4-11.0)
[2020-08-05 09:56] LABS: Color, Urine Yellow (Yellow); Glucose, Dipstick Normal (Normal); Ketone-Dipstick Negative (Negative); Leukocyte Esterase-Dipstick 25 /ul (Negative); Nitrite-Dipstick Negative (Negative); Occult Blood-Urine Negative /ul (Negative); Protein-Dipstick Negative (Negative); Urine Bilirubin Dipstick Negative (Negative); Urine Clarity Sl. Cloudy (Clear); Urine Urobilinogen Normal (Normal)
[2020-08-05 10:02] LABS: Squamous Epithelial Cells - UA 0-5 SEEN /hpf (5-10); White Blood Cells 0-5 SEEN /hpf (0-5)
[2020-08-05 10:05] LABS: Cholesterol 142 mg/dL (200); High Density Lipoprotein 48 mg/dL; Triglycerides 131 mg/dL; Very Low Density Lipoprotein 26 mg/dL (5-40)
[2020-08-05 10:06] LABS: Vitamin D,25 Hydroxy 61.8 ng/mL
== END ==
PROVIDERS: PCP Family Medicine; Referring Provider Family Medicine; Visit Provider Family Medicine
DX: E11.9 Type 2 diabetes mellitus without complications (principal); E78.5 Hyperlipidemia, unspecified; I10 Essential (primary) hypertension; E55.9 Vitamin D deficiency, unspecified
CPT/HCPCS: 36415; 80061; 81001; 82306; 83036; 85025

== ENCOUNTER → 2020-09-11 | Outpatient (CLI) | payer MEDICARE, SELFPAY ==
[2020-04-14 08:54] VITALS: BMI 37.2
== END | disposition home or self-care (01) ==
LOC: LABSPEC 14:43
PROVIDERS: PCP Family Medicine; Referring Provider Family Medicine; Visit Provider Family Medicine
DX: B34.9 Viral infection, unspecified (principal)
CPT/HCPCS: 87635; U0003

== ENCOUNTER → 2021-01-21 08:46 | Outpatient (CLI) | payer MEDICARE, SELFPAY ==
[2020-04-14 08:54] VITALS: BMI 37.2
[2021-01-21 10:26] LABS: Absolute Lymphocyte Count 1.58 X10^3/uL (0.83-4.51); Absolute Neutrophil Count 1.8 X10^3/uL (2.0-7.7); Basophil# 0.04 X10^3/uL; Eosinophil# 0.08 X10^3/uL; Eosinophils% 2.1 % (0-5); Hematocrit 40.4 % (37-47); Hemoglobin 13.2 g/dL (12.0-15.0); Lymphocyte # 1.58 X10^3/ul (0.83-4.51); Lymphocyte % 40.6 % (19-41); Mean Corp Hgb Conc 32.7 g/dL (32-36); Mean Corpuscular Hgb 30.8 pg (27.0-32.0); Mean Corpuscular Volume 94.4 fL (81-99); Mean Platelet Vol. 9.7 fl (6.2-12.0); Monocyte# 0.38 X10^3/uL; Monocyte% 9.8 % (0-10); NRBC Flagged by Analyzer 0 % (0-5); Neutrophil % 46.2 % (47-70); Platelet Count 288 K/mm3 (150-450); RBC Distribution Width SD 45.1 fl (35.1-43.9); Red Blood Count 4.28 M/mm3 (4.2-5.4); White Blood Count 3.9 K/mm3 (4.4-11.0)
[2021-01-21 10:40] LABS: Vitamin D,25 Hydroxy 63.2 ng/mL
[2021-01-21 10:44] LABS: ALB/GLOB Ratio 1.1 RATIO (0.9-2.4); AST(SGOT) 18 U/L (15-37); Alanine Aminotransfer ALT/SGPT 22 U/L (13-56); Albumin, Serum 3.8 g/dL (3.2-5.0); Alkaline Phosphatase 72 U/L (45-117); Anion Gap 3 (5-15); BUN 12 mg/dL (7-18); BUN/Creat Ratio 19.6 RATIO (10-20); Calcium,Total 9.2 mg/dL (8.5-10.1); Chloride 103 mmol/L (98-107); Cholesterol 152 mg/dL (200); Creatinine, Serum 0.61 mg/dL (0.55-1.02); EST Glomerular Filtration Rate 105 mL/min (>60); Est Glom Filt Rate - Afr Amer 127 mL/min (>60); Globulin 3.5 g/dL (2.2-4.2); Glucose 115 mg/dL (74-106); High Density Lipoprotein 53 mg/dL; Potassium 3.8 mmol/L (3.5-5.1); Protein, Total 7.3 g/dL (6.4-8.2); Sodium Level 137 mmol/L (136-145); Triglycerides 117 mg/dL; Very Low Density Lipoprotein 23 mg/dL (5-40)
[2021-01-21 10:56] LABS: Microalbumin,Random Urine 9.7 mg/L (NO RANGE EST.); Microalbumin:Creatinine Ratio 6.3 mg/g CRE (<30 mg/g CRE)
== END ==
PROVIDERS: PCP Family Medicine; Referring Provider Family Medicine; Visit Provider Family Medicine
DX: E78.5 Hyperlipidemia, unspecified (principal); E55.9 Vitamin D deficiency, unspecified; E11.9 Type 2 diabetes mellitus without complications; I10 Essential (primary) hypertension
CPT/HCPCS: 36415; 80053; 80061; 82043; 82306; 82570; 83036; 85025

== ENCOUNTER → 2021-02-02 07:52 | Outpatient (CLI) | payer MEDICARE, SELFPAY ==
[2020-04-14 08:54] VITALS: BMI 37.2
--- NOTE | 2021-02-02 07:55 | BI_ITS ---
MAMMOGRAPHY - BILATERAL SCREENING REASON FOR EXAM: Female, 60 years old. Routine annual screening examination. PERTINENT HISTORY: Aunt with breast cancer. Remote left needle biopsy. TECHNIQUE: Digital bilateral breast andrea (3D mammographic acquisition) in the CC and MLO projections. 2-D mediolateral oblique (MLO) and craniocaudad (CC) views of both breasts were obtained. CAD: Full Field Digital Mammography with Computer Added Detection was performed. COMPARISON: Comparison is made with prior study dated 01/28/2020 and 01/25/2019. FINDINGS: Breast Composition: The breasts are heterogeneously dense, which may obscure small masses. There are no dominant masses or suspicious calcifications. Stable small benign-appearing bilateral axillary lymph nodes. No other significant abnormalities are identified. There has been no significant change since the prior study. BI/SCRN MAMM (CAD)W/ANDREA BILAT IMPRESSION: Stable bilateral screening mammogram. Yearly follow-up mammogram recommended. (A) ASSESSMENT CATEGORY: BIRADS Category 2: Benign. A letter regarding these results will be sent to the patient by the facility within 30 days. Approximately 10% of breast cancers are not detected by mammography. A normal mammogram should not delay biopsy of a clinically suspicious abnormality. [id number] Electronically Signed: Issac Monae MD at 9:05 EDT , Service support ,
== END ==
PROVIDERS: PCP Family Medicine; Referring Provider Obstetrics & Gynecology; Visit Provider Obstetrics & Gynecology
DX: Z12.31 Encounter for screening mammogram for malignant neoplasm of breast (principal)
CPT/HCPCS: 77063; 77067

== ENCOUNTER → 2021-04-22 08:46 | Outpatient (CLI) | payer MEDICARE, SELFPAY ==
[2021-02-16 08:39] VITALS: BMI 37.2
[2021-04-22 10:13] LABS: Absolute Lymphocyte Count 1.46 X10^3/uL (0.83-4.51); Absolute Neutrophil Count 2.3 X10^3/uL (2.0-7.7); Basophil# 0.03 X10^3/uL; Basophil% 0.7 % (0-1); Eosinophil# 0.06 X10^3/uL; Eosinophils% 1.4 % (0-5); Hematocrit 39.5 % (37-47); Hemoglobin 13.2 g/dL (12.0-15.0); Lymphocyte # 1.46 X10^3/ul (0.83-4.51); Lymphocyte % 34.8 % (19-41); Mean Corp Hgb Conc 33.4 g/dL (32-36); Mean Corpuscular Hgb 30.6 pg (27.0-32.0); Mean Corpuscular Volume 91.4 fL (81-99); Mean Platelet Vol. 9.3 fl (6.2-12.0); Monocyte# 0.38 X10^3/uL; Monocyte% 9.1 % (0-10); NRBC Flagged by Analyzer 0 % (0-5); Neutrophil # 2.25 X10^3/uL (2.7-7.7); Neutrophil % 53.8 % (47-70); Platelet Count 301 K/mm3 (150-450); RBC Distribution Width CV 12.8 % (11.6-14.6); RBC Distribution Width SD 42.8 fl (35.1-43.9); Red Blood Count 4.32 M/mm3 (4.2-5.4); White Blood Count 4.2 K/mm3 (4.4-11.0)
[2021-04-22 10:27] LABS: ALB/GLOB Ratio 1.1 RATIO (0.9-2.4); AST(SGOT) 11 U/L (15-37); Alanine Aminotransfer ALT/SGPT 25 U/L (13-56); Albumin, Serum 3.8 g/dL (3.2-5.0); Alkaline Phosphatase 82 U/L (45-117); Anion Gap 5 (5-15); BUN 10 mg/dL (7-18); BUN/Creat Ratio 18.7 RATIO (10-20); Calcium,Total 8.9 mg/dL (8.5-10.1); Chloride 102 mmol/L (98-107); Cholesterol 152 mg/dL (200); Creatinine, Serum 0.53 mg/dL (0.55-1.02); EST Glomerular Filtration Rate 123 mL/min (>60); Est Glom Filt Rate - Afr Amer 149 mL/min (>60); Globulin 3.5 g/dL (2.2-4.2); Glucose 114 mg/dL (74-106); High Density Lipoprotein 47 mg/dL; Potassium 3.8 mmol/L (3.5-5.1); Protein, Total 7.3 g/dL (6.4-8.2); Sodium Level 138 mmol/L (136-145); Triglycerides 136 mg/dL; Very Low Density Lipoprotein 27 mg/dL (5-40)
[2021-04-22 10:29] LABS: Vitamin D,25 Hydroxy 54.1 ng/mL
[2021-04-22 10:32] LABS: Hemoglobin A1c 6.1 % (3.8-5.6)
== END ==
PROVIDERS: PCP Family Medicine; Referring Provider Family Medicine; Visit Provider Family Medicine
DX: E11.59 Type 2 diabetes mellitus with other circulatory complications (principal); E11.69 Type 2 diabetes mellitus with other specified complication; E55.9 Vitamin D deficiency, unspecified
CPT/HCPCS: 36415; 80053; 80061; 82306; 83036; 85025

== ENCOUNTER → 2021-05-08 07:49 | Outpatient (CLI) | payer MEDICARE, SELFPAY ==
[2021-04-27 10:09] VITALS: BMI 37.2
--- NOTE | 2021-05-08 07:50 | CT_ITS ---
STUDY: CT CHEST WITH CONTRAST REASON FOR EXAM: Female, 61 years old. Thoracic aortic aneurysm RADIATION DOSAGE (If Supplied By Facility): CTDIvol = ( 14.25 ) mGy, DLP = ( 574.92 ) mGycm TECHNIQUE: Transaxial imaging was performed following intravenous administration of IV 100mL Isovue-300. Multiplanar coronal and sagittal images were reformatted. Individualized dose optimization techniques were used for this CT. COMPARISON: Comparison is made with prior examination dated 05/02/2020. FINDINGS: Focal enlargement of the inferior aspect of the right lobe of the liver. Findings suggest by 1.5 cm hypodense nodule. Stable small benign-appearing bilateral axillary lymph nodes. Stable scarring and bronchiectasis in both lower lobes more prominent on the left side. There is no demonstrated pleural abnormality. Normal heart and pericardium. Normal mediastinum. Normal hilar regions. Normal enhanced pulmonary arteries. The root of the ascending thoracic aorta measures 4.2 cm in transverse dimension. Atherosclerotic calcification of the aortic arch . There are degenerative changes of the thoracic spine. Moderate sized hiatal hernia. CT/Chest WITH Contrast IMPRESSION: Dilatation of the root of the ascending thoracic aorta with a transverse dimension of 4.2 cm. Stable scarring at the lung bases slightly worse on the left side. Electronically Signed: Issac Monae MD at 9:49 EDT , Service support ,
== END ==
PROVIDERS: PCP Family Medicine; Referring Provider Internal Medicine Cardiovascular Disease; Visit Provider Internal Medicine Cardiovascular Disease
DX: I71.2 Thoracic aortic aneurysm, without rupture (principal)
CPT/HCPCS: 71260; Q9967

== ENCOUNTER 2022-01-08 08:46 | Outpatient (CLI) | payer MEDICARE, SELFPAY ==
[2022-01-08 10:06] LABS: Absolute Lymphocyte Count 1.56 X10^3/uL (0.83-4.51); Absolute Neutrophil Count 2.3 X10^3/uL (2.0-7.7); Basophil# 0.04 X10^3/uL; Basophil% 0.9 % (0-1); Eosinophil# 0.09 X10^3/uL; Eosinophils% 2.1 % (0-5); Hematocrit 40.2 % (37-47); Hemoglobin 13.9 g/dL (12.0-15.0); Lymphocyte # 1.56 X10^3/ul (0.83-4.51); Lymphocyte % 36.1 % (19-41); Mean Corp Hgb Conc 34.6 g/dL (32-36); Mean Corpuscular Hgb 31.4 pg (27.0-32.0); Mean Platelet Vol. 9.5 fl (6.2-12.0); Monocyte# 0.36 X10^3/uL; Monocyte% 8.3 % (0-10); NRBC Flagged by Analyzer 0 % (0-5); Neutrophil # 2.25 X10^3/uL (2.7-7.7); Neutrophil % 52.1 % (47-70); Platelet Count 330 K/mm3 (150-450); RBC Distribution Width CV 13.1 % (11.6-14.6); RBC Distribution Width SD 43.6 fl (35.1-43.9); Red Blood Count 4.42 M/mm3 (4.2-5.4); White Blood Count 4.3 K/mm3 (4.4-11.0)
[2022-01-08 10:23] LABS: ALB/GLOB Ratio 1.1 RATIO (0.9-2.4); AST(SGOT) 16 U/L (15-37); Alanine Aminotransfer ALT/SGPT 26 U/L (13-56); Albumin, Serum 3.9 g/dL (3.2-5.0); Alkaline Phosphatase 74 U/L (45-117); Anion Gap 5 (5-15); BUN 10 mg/dL (7-18); BUN/Creat Ratio 14.9 RATIO (10-20); Calcium,Total 9.2 mg/dL (8.5-10.1); Chloride 101 mmol/L (98-107); Cholesterol 135 mg/dL (200); Creatinine, Serum 0.67 mg/dL (0.55-1.02); EST Glomerular Filtration Rate 94 mL/min (>60); Est Glom Filt Rate - Afr Amer 114 mL/min (>60); Globulin 3.5 g/dL (2.2-4.2); Glucose 126 mg/dL (74-106); High Density Lipoprotein 44 mg/dL; Potassium 3.8 mmol/L (3.5-5.1); Protein, Total 7.4 g/dL (6.4-8.2); Sodium Level 136 mmol/L (136-145); Triglycerides 144 mg/dL; Very Low Density Lipoprotein 29 mg/dL (5-40)
[2022-01-08 10:28] LABS: Microalbumin,Random Urine 10.3 mg/L (NO RANGE EST.); Microalbumin:Creatinine Ratio 11.3 mg/g CRE (<30 mg/g CRE)
[2022-01-08 10:34] LABS: Vitamin D,25 Hydroxy 64.7 ng/mL
[2022-01-08 11:42] LABS: Hemoglobin A1c 6.4 % (3.8-5.6)
== END 2022-01-08 23:59 | disposition home or self-care (01) ==
LOC: MFPLAB 08:47
PROVIDERS: PCP Family Medicine; Referring Provider Family Medicine; Visit Provider Family Medicine
DX: E11.9 Type 2 diabetes mellitus without complications (principal); E55.9 Vitamin D deficiency, unspecified
CPT/HCPCS: 36415; 80053; 80061; 82043; 82306; 82570; 83036; 85025

== ENCOUNTER → 2022-02-03 | Outpatient (CLI) | payer MEDICARE, SELFPAY ==
--- NOTE | 2022-02-03 07:50 | BI_ITS ---
MAMMOGRAPHY - BILATERAL SCREENING REASON FOR EXAM: Female, 61 years old. Routine annual screening examination. PERTINENT HISTORY: Aunt with breast cancer. Remote left middle and left ultrasound-guided breast biopsy. TECHNIQUE: Digital bilateral breast andrea (3D mammographic acquisition) in the CC and MLO projections. 2-D mediolateral oblique (MLO) and craniocaudad (CC) views of both breasts were obtained. CAD: Full Field Digital Mammography with Computer Added Detection was performed. COMPARISON: Comparison is made with prior study dated 02/02/2021 and 01/28/2020. FINDINGS: Breast Composition: The breasts are heterogeneously dense, which may obscure small masses. There are no dominant masses or suspicious calcifications. A tissue clip marker is seen in the deep axillary region of the left breast. Stable small benign appearing bilateral axillary lymph nodes. No other significant abnormalities are identified. There has been no significant change since the prior study. BI/SCRN MAMM (CAD)W/ANDREA BILAT IMPRESSION: Stable bilateral screening mammogram. Yearly follow-up mammogram recommended. (A) ASSESSMENT CATEGORY: BIRADS Category 2: Benign. A letter regarding these results will be sent to the patient by the facility within 30 days. Approximately 10% of breast cancers are not detected by mammography. A normal mammogram should not delay biopsy of a clinically suspicious abnormality. [id number] Electronically Signed: Issac Monae MD at 9:07 EDT ,
== END | disposition home or self-care (01) ==
LOC: OPBI 07:48
PROVIDERS: PCP Family Medicine; Referring Provider Obstetrics & Gynecology; Visit Provider Obstetrics & Gynecology
DX: Z12.31 Encounter for screening mammogram for malignant neoplasm of breast (principal)
CPT/HCPCS: 77063; 77067

== ENCOUNTER → 2022-05-06 | Outpatient (CLI) | payer MEDICARE, SELFPAY ==
--- NOTE | 2022-05-06 07:49 | CT_ITS ---
STUDY: CT CHEST WITH CONTRAST REASON FOR EXAM: Female, 62 years old. Thoracic aortic aneurysm without rupture. RADIATION DOSAGE (If Supplied By Facility): CTDIvol = ( 17.98 ) mGy, DLP = ( 631.79 ) mGycm TECHNIQUE: Transaxial imaging was performed following intravenous administration of IV 100mL Isovue-300. Multiplanar coronal and sagittal images were reformatted. Individualized dose optimization techniques were used for this CT. COMPARISON: Comparison is made with prior examination dated 05/08/2021. FINDINGS: CHEST Stable small benign-appearing bilateral axillary lymph nodes. Stable appearance of the inferior aspect of the right lobe of the thyroid. Stable linear scarring and bronchiectasis in the lower lobes. There is no demonstrated pleural abnormality. Normal heart and pericardium. Normal mediastinum. Normal hilar regions. Normal unenhanced pulmonary arteries. Stable dilatation of the root of the ascending thoracic aorta with a transverse dimension of 42 mm. Atherosclerotic calcific plaques at the level of the aortic arch. There are degenerative changes of the thoracic spine. Moderate sized hiatal hernia. CT/Chest WITH Contrast IMPRESSION: Stable examination. Electronically Signed: Issac Monae MD at 9:02 EDT ,
[2022-05-06 08:16] LABS: CREATININE FINGERSTICK < 0.9 mg/dL (0.55-1.02); EGFR FINGERSTICK > 60.0000 mL/min (>60)
== END | disposition home or self-care (01) ==
PROVIDERS: PCP Family Medicine; Referring Provider Nurse Practitioner Gerontology; Visit Provider Nurse Practitioner Gerontology
DX: I71.2 Thoracic aortic aneurysm, without rupture (principal)
CPT/HCPCS: 71260; Q9967

== ENCOUNTER → 2022-06-17 | Outpatient (CLI) | payer MEDICARE, SELFPAY ==
[2022-06-17 11:11] LABS: Vitamin B12 338 pg/mL (211-911)
[2022-06-17 11:19] LABS: Thyroid Stim Hormone (TSH) 0.59 uIU/mL (0.358-3.74)
== END | disposition home or self-care (01) ==
LOC: MFPLAB 09:09
PROVIDERS: PCP Family Medicine; Referring Provider Family Medicine; Visit Provider Family Medicine
DX: R41.3 Other amnesia (principal)
CPT/HCPCS: 36415; 82607; 84443

== ENCOUNTER → 2022-07-08 | Outpatient (CLI) | payer MEDICARE, SELFPAY ==
[2022-07-08 10:18] LABS: Absolute Lymphocyte Count 1.66 X10^3/uL (0.83-4.51); Basophil# 0.03 X10^3/uL; Basophil% 0.7 % (0-1); Eosinophil# 0.05 X10^3/uL; Eosinophils% 1.2 % (0-5); Hematocrit 39.9 % (37-47); Hemoglobin 13.4 g/dL (12.0-15.0); Lymphocyte # 1.66 X10^3/ul (0.83-4.51); Lymphocyte % 40.3 % (19-41); Mean Corp Hgb Conc 33.6 g/dL (32-36); Mean Corpuscular Hgb 30.9 pg (27.0-32.0); Mean Corpuscular Volume 91.9 fL (81-99); Mean Platelet Vol. 9.3 fl (6.2-12.0); Monocyte# 0.33 X10^3/uL; NRBC Flagged by Analyzer 0 % (0-5); Neutrophil # 2.04 X10^3/uL (2.7-7.7); Neutrophil % 49.6 % (47-70); Platelet Count 305 K/mm3 (150-450); RBC Distribution Width CV 12.7 % (11.6-14.6); RBC Distribution Width SD 42.4 fl (35.1-43.9); Red Blood Count 4.34 M/mm3 (4.2-5.4); White Blood Count 4.1 K/mm3 (4.4-11.0)
[2022-07-08 10:46] LABS: Vitamin D,25 Hydroxy 54.1 ng/mL
[2022-07-08 10:54] LABS: ALB/GLOB Ratio 1.1 RATIO (0.9-2.4); AST(SGOT) 15 U/L (15-37); Alanine Aminotransfer ALT/SGPT 21 U/L (13-56); Albumin, Serum 3.9 g/dL (3.2-5.0); Alkaline Phosphatase 74 U/L (45-117); Anion Gap 8 (5-15); BUN 12 mg/dL (7-18); BUN/Creat Ratio 19.5 RATIO (10-20); Calcium,Total 9.3 mg/dL (8.5-10.1); Chloride 100 mmol/L (98-107); Cholesterol 140 mg/dL (200); Creatinine, Serum 0.61 mg/dL (0.55-1.02); EST Glomerular Filtration Rate 104 mL/min (>60); Est Glom Filt Rate - Afr Amer 126 mL/min (>60); Globulin 3.7 g/dL (2.2-4.2); Glucose 110 mg/dL (74-106); High Density Lipoprotein 48 mg/dL; Potassium 3.6 mmol/L (3.5-5.1); Protein, Total 7.6 g/dL (6.4-8.2); Sodium Level 137 mmol/L (136-145); Triglycerides 167 mg/dL; Very Low Density Lipoprotein 33 mg/dL (5-40)
[2022-07-08 11:18] LABS: Hemoglobin A1c 6.4 % (3.8-5.6)
== END | disposition home or self-care (01) ==
LOC: MFPLAB 09:25
PROVIDERS: PCP Family Medicine; Referring Provider Family Medicine; Visit Provider Family Medicine
DX: E11.9 Type 2 diabetes mellitus without complications (principal); E55.9 Vitamin D deficiency, unspecified
CPT/HCPCS: 36415; 80053; 80061; 82306; 83036; 85025

== ENCOUNTER → 2023-01-11 | Outpatient (CLI) | payer MEDICARE, SELFPAY ==
--- NOTE | 2023-01-11 12:25 | BD_ITS ---
STUDY: DUAL ENERGY X-RAY ABSORPTIOMETRY / DXA REASON FOR EXAM: Female, 62 years old. 627.8Menopausal postmenopausal BONE DENSITY REASON FOR EXAM TECHNIQUE: Bone Mineral Density (BMD) measurements of lumbar spine and bilateral hips were obtained. COMPARISON: None. FINDINGS: Lumbar Spine (L1-L4): g/cm2 (1.102) / T-score (0.5) / Z-score (2.3) Findings are suggestive of normal bone density with a low fracture risk. Left Femur Total: g/cm2 (1.026) / T-score (0.7) / Z-score (1.9) Left Femoral Neck: g/cm2 (0.762) / T-score (-0.8) / Z-score (0.7) Right Femur Total: g/cm2 (1.047) / T-score (0.9) / Z-score (2.1) Right Femoral Neck: g/cm2 (0.780) / T-score (-0.6) / Z-score (0.9) BD/Dexa Bone Density Study IMPRESSION: The patient is considered normal as outlined below according to World Chandler Organization (WHO) criteria with a low fracture risk. Reference Information: The T-score is the number of standard deviations above or below the standard which is normal for young adults at their peak bone mineral density. The World Health Organization (WHO) interprets the T-scores as follows: Above -1 Normal bone density Between -1 and -2.5 Osteopenia Equal to / or below -2.5 Osteoporosis As a practical clinical guideline, osteopenia may be graded as follows: Mild -1 through -1.5 Moderate -1.6 through -2.0 Severe -2.1 through -2.4 The Z-score is the number of standard deviations above or below age-matched controls. A Z-score of less than -1.5 would be considered abnormal. References: 1. NIH Osteoporosis and Related Bone Diseases www osteo.org 2. International Society for Clinical Densitometry www iscd.org 3. National Osteoporosis Foundation www nof.org Electronically Signed: Issac Monae MD at 14:36 EDT ,
== END | disposition home or self-care (01) ==
LOC: OPBD 12:17
PROVIDERS: PCP Family Medicine; Referring Provider Nurse Practitioner Family; Visit Provider Nurse Practitioner Family
DX: Z13.820 Encounter for screening for osteoporosis (principal); N95.9 Unspecified menopausal and perimenopausal disorder
CPT/HCPCS: 77080

== ENCOUNTER → 2023-02-04 | Outpatient (CLI) | payer MEDICARE, SELFPAY ==
--- NOTE | 2023-02-04 07:27 | BI_ITS ---
MAMMOGRAPHY - BILATERAL SCREENING REASON FOR EXAM: Female, 62 years old. Routine annual screening examination. PERTINENT HISTORY: Aunt with breast cancer. History of prior left needle biopsy. TECHNIQUE: Digital bilateral breast andrea (3D mammographic acquisition) in the CC and MLO projections. 2-D mediolateral oblique (MLO) and craniocaudad (CC) views of both breasts were obtained. CAD: Full Field Digital Mammography with Computer Added Detection was performed. COMPARISON: Comparison is made with prior examination dated February 03, 2022 and February 02, 2021. FINDINGS: Breast Composition: The breasts are heterogeneously dense, which may obscure small masses. There are no dominant masses or suspicious calcifications. A tissue clip marker is once again seen in the upper central portion of the left breast dated with history of prior needle biopsy. No other significant abnormalities are identified. There has been no significant change since the prior study. BI/SCRN MAMM (CAD)W/ANDREA BILAT IMPRESSION: Stable bilateral screening mammogram. Yearly follow-up mammogram recommended. (A) ASSESSMENT CATEGORY: BIRADS Category 2: Benign. A letter regarding these results will be sent to the patient by the facility within 30 days. Approximately 10% of breast cancers are not detected by mammography. A normal mammogram should not delay biopsy of a clinically suspicious abnormality. [id number] Electronically Signed: Issac Monae MD at 8:56 EDT ,
== END | disposition home or self-care (01) ==
PROVIDERS: PCP Family Medicine; Referring Provider Obstetrics & Gynecology; Visit Provider Obstetrics & Gynecology
DX: Z12.31 Encounter for screening mammogram for malignant neoplasm of breast (principal); E11.9 Type 2 diabetes mellitus without complications; Z80.3 Family history of malignant neoplasm of breast; E55.9 Vitamin D deficiency, unspecified
CPT/HCPCS: 36415; 77063; 77067; 80053; 80061; 82306; 83036; 85025

== ENCOUNTER → 2023-02-04 | Outpatient (CLI) | payer MEDICARE, SELFPAY ==
[2023-02-04 17:50] LABS: Absolute Lymphocyte Count 1.43 X10^3/uL (0.83-4.51); Absolute Neutrophil Count 2.2 X10^3/uL (2.0-7.7); Basophil# 0.05 X10^3/uL; Basophil% 1.2 % (0-1); Eosinophil# 0.07 X10^3/uL; Eosinophils% 1.7 % (0-5); Hemoglobin 13.1 g/dL (12.0-15.0); Lymphocyte # 1.43 X10^3/ul (0.83-4.51); Lymphocyte % 34.5 % (19-41); Mean Corp Hgb Conc 32.8 g/dL (32-36); Mean Corpuscular Hgb 31.2 pg (27.0-32.0); Mean Corpuscular Volume 95.2 fL (81-99); Mean Platelet Vol. 9.6 fl (6.2-12.0); Monocyte# 0.38 X10^3/uL; Monocyte% 9.2 % (0-10); NRBC Flagged by Analyzer 0.5 % (0-5); Neutrophil % 53.2 % (47-70); Platelet Count 299 K/mm3 (150-450); RBC Distribution Width CV 12.9 % (11.6-14.6); RBC Distribution Width SD 45.1 fl (35.1-43.9); White Blood Count 4.1 K/mm3 (4.4-11.0)
[2023-02-04 18:08] LABS: Vitamin D,25 Hydroxy 77.9 ng/mL
[2023-02-04 18:17] LABS: ALB/GLOB Ratio 1.1 RATIO (0.9-2.4); AST(SGOT) 17 U/L (15-37); Alanine Aminotransfer ALT/SGPT 26 U/L (13-56); Albumin, Serum 3.7 g/dL (3.2-5.0); Alkaline Phosphatase 64 U/L (45-117); Anion Gap 8 (5-15); BUN 11 mg/dL (7-18); BUN/Creat Ratio 21.7 RATIO (10-20); Chloride 103 mmol/L (98-107); Cholesterol 129 mg/dL (200); Creatinine, Serum 0.51 mg/dL (0.55-1.02); EST Glomerular Filtration Rate 130 mL/min (>60); Est Glom Filt Rate - Afr Amer 157 mL/min (>60); Globulin 3.4 g/dL (2.2-4.2); Glucose 108 mg/dL (74-106); High Density Lipoprotein 45 mg/dL; Potassium 3.6 mmol/L (3.5-5.1); Protein, Total 7.1 g/dL (6.4-8.2); Sodium Level 139 mmol/L (136-145); Triglycerides 113 mg/dL; Very Low Density Lipoprotein 23 mg/dL (5-40)
[2023-02-04 18:18] LABS: Hemoglobin A1c 6.1 % (3.8-5.6)
== END | disposition home or self-care (01) ==
LOC: MFPLAB 08:11
PROVIDERS: PCP Family Medicine; Visit Provider Family Medicine
DX: E11.9 Type 2 diabetes mellitus without complications (principal); E55.9 Vitamin D deficiency, unspecified
CPT/HCPCS: 36415; 80053; 80061; 82306; 83036; 85025

== ENCOUNTER → 2023-02-24 | Outpatient (CLI) | payer MEDICARE, SELFPAY ==
[2023-02-28 16:09] LABS: HPV APTIMA, High Risk Negative (Negative)
== END | disposition home or self-care (01) ==
LOC: LABSPEC 10:43
PROVIDERS: PCP Family Medicine; Referring Provider Obstetrics & Gynecology; Visit Provider Obstetrics & Gynecology
DX: Z01.419 Encounter for gynecological examination (general) (routine) without abnormal findings (principal); Z78.0 Asymptomatic menopausal state
CPT/HCPCS: 87624; 88175; G0145

== ENCOUNTER → 2023-03-23 | Outpatient (CLI) | payer MEDICARE, SELFPAY ==
--- NOTE | 2023-03-23 07:17 | CT_ITS ---
EXAM: CT ANGIOGRAPHY CHEST WITHOUT AND WITH INTRAVENOUS CONTRAST CLINICAL INDICATION: to eval existing thoracic aortic aneurysm TECHNIQUE: Helically acquired angiography images were obtained of the chest without and with intravenous contrast. This CT exam was performed using one or more of the following dose reduction techniques: automated exposure control, adjustment of the mA and/or kV according to patient size, and/or use of iterative reconstruction technique. MIP reconstructed images were created and reviewed. CONTRAST: IV 100mL [id number] COMPARISON: CTA Chest dated 05/06/2022 FINDINGS: PULMONARY ARTERIES: Normal. Normal in caliber. No evidence of pulmonary embolism. AORTA: Stable 4 cm ectasia of the ascending thoracic aorta. Normal distal tapering through the aortic arch and descending thoracic aorta. No evidence of dissection. GREAT VESSELS OF AORTIC ARCH: See above. LUNGS AND PLEURAL SPACES: Persistent bibasilar linear pulmonary densities consistent with scarring. No mass. No pleural effusion or thickening. No pneumothorax. HEART: Normal. Heart size is normal. No pericardial effusion. No significant coronary artery calcification. MEDIASTINUM: Moderate size hiatal hernia. No mediastinal or hilar adenopathy. Esophagus is unremarkable. BONES/JOINTS: Multilevel Schmorl nodes of the thoracic spine are stable. No suspicious lytic or blastic abnormality. CT/CTA Chest W/WO Contrast IMPRESSION: 1. Stable 4 cm ectasia of the ascending thoracic aorta. 2. Stable moderate hiatal hernia. Electronically Signed: Maco Mcgee MD at 9:52 EDT ,
[2023-03-23 07:43] LABS: CREATININE FINGERSTICK < 0.9 mg/dL (0.55-1.02); EGFR FINGERSTICK > 60.0000 mL/min (>60)
== END | disposition home or self-care (01) ==
LOC: CT 07:16
PROVIDERS: PCP Family Medicine; Referring Provider Nurse Practitioner Gerontology; Visit Provider Nurse Practitioner Gerontology
DX: I71.20 Thoracic aortic aneurysm, without rupture, unspecified (principal); R07.9 Chest pain, unspecified; M54.50 Low back pain, unspecified; M54.6 Pain in thoracic spine
CPT/HCPCS: 71275; Q9967

== ENCOUNTER → 2023-05-18 | Outpatient (CLI) | payer MEDICARE, SELFPAY ==
--- NOTE | 2023-05-18 14:17 | STRESSREP_ITS ---
Stress Test Report Date: 05/18/2023 Procedure: Pharmacologic stress nuclear imaging study Indications: Chest pain Consent: Per the patient Procedure: The patient underwent pharmacologic (Regadenoson 0.4mg ) evaluation with a peak heart rate of 102 beats per minute (65%predicted maximal heart rate) and a peak blood pressure of 132/84 mmHg. The baseline ECG demonstrated normal sinus rhythm. The peak pharmacologic ECG demonstrated no ischemic changes. There were no cardiac dysrhythmias pretest, during pharmacologic infusion, or recovery. There was no complaint of chest discomfort during pharmacologic infusion or recovery. The patient was injected with 11 point millicuries of technetium 99m Cardiolite and subsequently rest SPECT Cardiolite nuclear imaging was obtained in the horizontal long, vertical long, and short axis views. The patient underwent pharmacologic (Regadenoson) evaluation. The patient was injected with 33.7 millicuries of technetium 99m Cardiolite and subsequently stress SPECT Cardiolite nuclear imaging was obtained in the horizontal long, vertical long, and short axis views. A gated Cardiolite study at peak stress was obtained. The examination was stopped secondary to completion of protocol. Rest and stress SPECT Cardiolite nuclear imaging status post realignment, normalization, and attenuation correction demonstrate no fixed or reversible perfusion defect. There is end systolic thickening and brightening. The gated Cardiolite study demonstrates myocardial thickening and inward wall motion. The reported LVEF is 71%. Impression: 1. Pharmacologic (Regadenoson) evaluation 2. Peak pharmacologic ECG with no ischemic changes. 3. There were no cardiac dysrhythmias pretest, during pharmacologic infusion, or recovery. 5. Rest and stress SPECT Cardiolite nuclear imaging demonstrate relative uniform tracer uptake and myocardial perfusion appearing within normal limits. 6. The gated Cardiolite study reports an LVEF of 71%. This note was generated with [employer] software. It may contain incorrect words, spelling, and punctuation that were not noted in checking the note before signing.
== END | disposition home or self-care (01) ==
LOC: CVS 06:18
PROVIDERS: PCP Family Medicine; Referring Provider Nurse Practitioner Gerontology; Visit Provider Nurse Practitioner Gerontology
DX: R07.9 Chest pain, unspecified (principal)
CPT/HCPCS: 78452; 93017; A9500; A4216; J2785

== ENCOUNTER → 2023-07-20 | Outpatient (CLI) | payer MEDICARE, SELFPAY ==
[2023-07-20 10:13] LABS: Absolute Lymphocyte Count 1.45 X10^3/uL (0.83-4.51); Absolute Neutrophil Count 2.2 X10^3/uL (2.0-7.7); Basophil# 0.04 X10^3/uL; Eosinophil# 0.08 X10^3/uL; Eosinophils% 1.9 % (0-5); Hematocrit 39.9 % (37-47); Hemoglobin 13.1 g/dL (12.0-15.0); Lymphocyte # 1.45 X10^3/ul (0.83-4.51); Lymphocyte % 34.6 % (19-41); Mean Corp Hgb Conc 32.8 g/dL (32-36); Mean Corpuscular Hgb 30.5 pg (27.0-32.0); Mean Corpuscular Volume 92.8 fL (81-99); Mean Platelet Vol. 9.3 fl (6.2-12.0); Monocyte# 0.36 X10^3/uL; Monocyte% 8.6 % (0-10); NRBC Flagged by Analyzer 0 % (0-5); Neutrophil # 2.24 X10^3/uL (2.7-7.7); Neutrophil % 53.4 % (47-70); Platelet Count 296 K/mm3 (150-450); RBC Distribution Width CV 12.8 % (11.6-14.6); RBC Distribution Width SD 43.6 fl (35.1-43.9); White Blood Count 4.2 K/mm3 (4.4-11.0)
[2023-07-20 10:48] LABS: Vitamin D,25 Hydroxy 64.2 ng/mL
[2023-07-20 10:50] LABS: ALB/GLOB Ratio 1.1 RATIO (0.9-2.4); AST(SGOT) 18 U/L (15-37); Alanine Aminotransfer ALT/SGPT 22 U/L (13-56); Albumin, Serum 3.8 g/dL (3.2-5.0); Alkaline Phosphatase 72 U/L (45-117); Anion Gap 5 (5-15); BUN 8 mg/dL (7-18); BUN/Creat Ratio 14.5 RATIO (10-20); Calcium,Total 8.9 mg/dL (8.5-10.1); Chloride 103 mmol/L (98-107); Cholesterol 149 mg/dL (200); Creatinine, Serum 0.55 mg/dL (0.55-1.02); EST Glomerular Filtration Rate 118 mL/min (>60); Est Glom Filt Rate - Afr Amer 143 mL/min (>60); Globulin 3.4 g/dL (2.2-4.2); Glucose 123 mg/dL (74-106); High Density Lipoprotein 49 mg/dL; Potassium 3.7 mmol/L (3.5-5.1); Protein, Total 7.2 g/dL (6.4-8.2); Sodium Level 139 mmol/L (136-145); Triglycerides 156 mg/dL; Very Low Density Lipoprotein 31 mg/dL (5-40)
[2023-07-20 11:03] LABS: Microalbumin,Random Urine 7.1 mg/L (NO RANGE EST.); Microalbumin:Creatinine Ratio 6.7 mg/g CRE (<30 mg/g CRE)
== END | disposition home or self-care (01) ==
LOC: MFPLAB 08:53
PROVIDERS: PCP Family Medicine; Visit Provider Family Medicine
DX: E55.9 Vitamin D deficiency, unspecified (principal); E11.9 Type 2 diabetes mellitus without complications
CPT/HCPCS: 36415; 80053; 80061; 82043; 82306; 82570; 83036; 85025

== ENCOUNTER → 2024-01-18 | Outpatient (CLI) | payer MEDICARE, SELFPAY ==
[2024-01-18 12:54] LABS: Absolute Neutrophil Count 2.3 X10^3/uL (2.0-7.7); Basophil# 0.05 X10^3/uL; Basophil% 1.2 % (0-1); Eosinophil# 0.06 X10^3/uL; Eosinophils% 1.4 % (0-5); Hematocrit 41.2 % (37-47); Hemoglobin 13.8 g/dL (12.0-15.0); Lymphocyte % 34.6 % (19-41); Mean Corp Hgb Conc 33.5 g/dL (32-36); Mean Corpuscular Hgb 31.3 pg (27.0-32.0); Mean Corpuscular Volume 93.4 fL (81-99); Mean Platelet Vol. 9.2 fl (6.2-12.0); Monocyte# 0.38 X10^3/uL; Monocyte% 8.8 % (0-10); NRBC Flagged by Analyzer 0 % (0-5); Neutrophil # 2.34 X10^3/uL (2.7-7.7); Platelet Count 321 K/mm3 (150-450); RBC Distribution Width SD 44.6 fl (35.1-43.9); Red Blood Count 4.41 M/mm3 (4.2-5.4); White Blood Count 4.3 K/mm3 (4.4-11.0)
[2024-01-18 13:14] LABS: Vitamin D,25 Hydroxy 63.7 ng/mL
[2024-01-18 13:32] LABS: AST(SGOT) 22 U/L (15-37); Alanine Aminotransfer ALT/SGPT 26 U/L (13-56); Albumin, Serum 3.8 g/dL (3.2-5.0); Alkaline Phosphatase 66 U/L (45-117); Anion Gap 4 (5-15); BUN 11 mg/dL (7-18); BUN/Creat Ratio 17.4 RATIO (10-20); Calcium,Total 9.3 mg/dL (8.5-10.1); Chloride 104 mmol/L (98-107); Cholesterol 156 mg/dL (200); Creatinine, Serum 0.63 mg/dL (0.55-1.02); EST Glomerular Filtration Rate 100 mL/min (>60); Est Glom Filt Rate - Afr Amer 121 mL/min (>60); Globulin 3.7 g/dL (2.2-4.2); Glucose 116 mg/dL (74-106); High Density Lipoprotein 49 mg/dL; Potassium 3.9 mmol/L (3.5-5.1); Protein, Total 7.5 g/dL (6.4-8.2); Sodium Level 138 mmol/L (136-145); Triglycerides 152 mg/dL; Very Low Density Lipoprotein 30 mg/dL (5-40)
== END | disposition home or self-care (01) ==
LOC: MFPLAB 10:24
PROVIDERS: PCP Family Medicine; Visit Provider Family Medicine
DX: E11.69 Type 2 diabetes mellitus with other specified complication (principal)
CPT/HCPCS: 36415; 80053; 80061; 82043; 82306; 83036; 85025; 85049

== ENCOUNTER → 2024-01-25 | Outpatient (CLI) | payer MEDICARE, SELFPAY ==
--- NOTE | 2024-01-25 09:20 | RAD_ITS ---
INDICATION: Hip pain. EXAMINATION/TECHNIQUE: X-RAY - XR Hips Bilateral with Pelvis when performed; Min 5 Views COMPARISON: No relevant prior comparison study available FINDINGS: PELVIC BONES: No displaced fracture, destructive or sclerotic lesions. Note that overlapping bowel shadows may however obscure fine detail. Sacroiliac joints are unremarkable. No widening of the pubic symphysis. HIPS: The articular structures are unremarkable. No displaced fracture seen. SOFT TISSUES: There are multiple phleboliths in the pelvis. There surgical clips/tacks in the lower abdomen. No soft tissue swelling or gas. RAD/HIP, UNI W/ Pelvis 2-3 Views IMPRESSION: No evidence of displaced pelvic or hip fracture. Electronically Signed: Jc Bryant MD at 8:46 EDT ,
== END | disposition home or self-care (01) ==
PROVIDERS: PCP Family Medicine; Referring Provider Family Medicine; Visit Provider Family Medicine
DX: E11.59 Type 2 diabetes mellitus with other circulatory complications (principal); M25.559 Pain in unspecified hip
CPT/HCPCS: 73502

== ENCOUNTER → 2024-02-06 | Outpatient (CLI) | payer MEDICARE, SELFPAY ==
--- NOTE | 2024-02-06 12:43 | BI_ITS ---
MAMMOGRAPHY - BILATERAL SCREENING REASON FOR EXAM: Female, 63 years old. Routine annual screening examination. PERTINENT HISTORY: Aunt with breast cancer. Remote left needle guided breast biopsy. TECHNIQUE: Digital bilateral breast andrea (3D mammographic acquisition) in the CC and MLO projections. 2-D mediolateral oblique (MLO) and craniocaudad (CC) views of both breasts were obtained. CAD: Full Field Digital Mammography with Computer Added Detection was performed. COMPARISON: Comparison is made with prior study February 04, 2023 and February 03, 2022. FINDINGS: Breast Composition: The breasts are heterogeneously dense, which may obscure small masses. There are no dominant masses or suspicious calcifications. A tissue clip marker is once again seen in the upper central portion of the left breast. No other significant abnormalities are identified. There has been no significant change since the prior study. BI/SCRN MAMM (CAD)W/ANDREA BILAT IMPRESSION: Stable bilateral screening mammogram. Yearly follow-up mammogram recommended. (A) ASSESSMENT CATEGORY: BIRADS Category 2: Benign. A letter regarding these results will be sent to the patient by the facility within 30 days. Approximately 10% of breast cancers are not detected by mammography. A normal mammogram should not delay biopsy of a clinically suspicious abnormality. [id number] Electronically Signed: Issac Monae MD at 10:13 EDT ,
== END | disposition home or self-care (01) ==
LOC: OPBI 12:43
PROVIDERS: PCP Family Medicine; Referring Provider Obstetrics & Gynecology; Visit Provider Obstetrics & Gynecology
DX: Z12.31 Encounter for screening mammogram for malignant neoplasm of breast (principal); Z80.3 Family history of malignant neoplasm of breast
CPT/HCPCS: 77063; 77067

== ENCOUNTER → 2024-04-09 | Outpatient (CLI) | payer MEDICARE, SELFPAY ==
--- NOTE | 2024-04-09 09:50 | ECHOD_ITS ---
Reason For Study: CHEST PAIN Procedure This was a 2D Doppler, Color Flow transthoracic echocardiogram. Exam performed in department. Left Ventricle Normal LV size. Mild concentric left ventricular hypertrophy. The left ventricular ejection fraction is 60 %. Diastolic function is indeterminate. Right Ventricle Normal right ventricle. Atria The left atrium is mildly enlarged. Normal right atrium. Mitral Valve Trivial mitral valve insufficiency. Tricuspid Valve Trivial tricuspid valve insufficiency. Unable to estimate RV systolic pressure due to insufficient tricuspid regurgitant envelope. Aortic Valve Trisinus/trileaflet aortic valve. Pulmonic Valve The pulmonic valve is not well visualized. Great Vessels Mildly dilated aortic root. Pericardium/Pleural No pericardial effusion. MMode/2D Measurements & Calculations LVIDd: 4.0 cm IVSd: 1.1 cm LVOT diam: 2.1 cm LVIDs: 2.8 cm LVPWd: 1.2 cm LVOT area: 3.4 cm2 FS: 30.8 % Ao root diam: 3.7 cm LAV(MOD-bp): 53.5 ml LVAd ap4: 27.9 cm2 LAV(MOD-bp) Indexed: 27.7 ml/m2 LVLd ap4: 7.8 cm LAV(MOD-sp2): 33.7 ml EDV(MOD-sp4): 81.6 ml LAV(MOD-sp4): 70.6 ml EDV(sp4-el): 84.9 ml LVAs ap4: 16.1 cm2 LVLs ap4: 7.0 cm ESV(MOD-sp4): 32.9 ml ESV(sp4-el): 31.5 ml EF(MOD-sp4): 59.7 % EF(sp4-el): 62.9 % SV(MOD-sp4): 48.7 ml SV(sp4-el): 53.4 ml LA A4 area: 23.3 cm2 LA dimension(2D): 3.5 cm RA A4 area: 11.3 cm2 TAPSE: 1.4 cm Time Measurements MV dec time: 0.21 sec Doppler Measurements & Calculations MV E max dony: 73.8 cm/sec Lat Peak E' Dony: 8.9 cm/sec Med Peak E' Dony: 5.6 cm/sec MV A max dony: 102.9 cm/sec E/E' lat: 8.3 E/E' med: 13.2 MV E/A: 0.72 MV V2 max: 100.8 cm/sec Ao V2 max: 114.1 cm/sec MV max P.1 mmHg MV dec slope: 360.8 cm/sec2 Ao max P.2 mmHg MV V2 mean: 56.0 cm/sec Ao V2 mean: 78.7 cm/sec MV mean P.5 mmHg Ao mean P.9 mmHg MV V2 VTI: 32.9 cm Ao V2 VTI: 26.3 cm AV (velocity ratio): 0.89 MVA(VTI): 2.4 cm2 KIMANI(I,D): 3.0 cm2 KIMANI(V,D): 3.1 cm2 LV V1 max: 104.6 cm/sec SV(LVOT): 78.6 ml PA V2 max: 93.7 cm/sec LV V1 max P.4 mmHg PA V2 mean: 67.5 cm/sec LV V1 mean P.4 mmHg LV V1 mean: 70.9 cm/sec LV V1 VTI: 23.4 cm ECHO/Echo Complete Interpretation Summary Mild concentric left ventricular hypertrophy. The left ventricular ejection fraction is 60 %. The left atrium is mildly enlarged. Mildly dilated aortic root. Ordering Physician: Patty Hernandez Referring Physician: Patty Hernandez Performed By: Agustina Winters RCS
== END | disposition home or self-care (01) ==
PROVIDERS: PCP Family Medicine; Referring Provider Nurse Practitioner Gerontology; Visit Provider Nurse Practitioner Gerontology
DX: R07.9 Chest pain, unspecified (principal); I71.20 Thoracic aortic aneurysm, without rupture, unspecified
CPT/HCPCS: 93306

== ENCOUNTER → 2024-05-29 | Outpatient (CLI) | payer SELFPAY ==
--- NOTE | 2024-05-29 07:10 | CT_ITS ---
STUDY: CT CHEST WITHOUT CONTRAST REASON FOR EXAM: Female, 64 years old. CHEST PAIN RADIATION DOSAGE (If Supplied By Facility): CTDIvol = ( 12.19 ) mGy, DLP = ( 195.04 ) mGycm TECHNIQUE: Transaxial imaging was performed without the administration of intravenous contrast material. Cardiac over read examination. Individualized dose optimization techniques were used for this CT. COMPARISON: No relevant priors. FINDINGS: CHEST Mild degree of increased linear markings at the lung bases suggestive of mild bibasilar scarring. Mild calcified pleural plaques at the left lung base. There are calcifications of the coronary arteries. Normal mediastinum. Normal hilar regions. Normal unenhanced pulmonary arteries. There is atherosclerotic calcification of the aortic arch. The root of the ascending thoracic aorta measures 4.3 cm in transverse dimension. Normal osseous structures. There is a moderate-sized hiatal hernia. CT/Limited Chest CT Cardiac Only IMPRESSION: Coronary calcification. Mild scarring at the lung bases and mild left pleural plaque calcification. Electronically Signed: Issac Monae MD at 8:21 EDT ,
--- NOTE | 2024-05-29 08:53 | CA.SCORE ---
Calcium Scoring Date of Study:: 05/29/24 Indications Indications: cad Coronary Calcium Scoring: High-resolution Computed Tomographic imaging of the chest was performed on [05/29/24 ], with particular attention paid to the coronary arteries. Images from the examination were analyzed for the presence and extent of coronary artery calcification , using coronary calcium quantification software. The patient tolerated the procedure well and there were no complications. The results of the coronary calcification analysis are provided below. Findings Coronary Artery Left Main (LM): 104 Left Anterior Descending (LAD): 117 Left Circumflex (LCX): 71.5 Right Coronary Artery (RCA): 200 Total Agatston Score: 492.5 Percentile Rankin% Calcium Scoring Interpretation: Different methods to categorize the overall amount of coronary plaque. Overall amount CAC SIS Visual of coronary plaque P1 Mild -100 <2 1-2 vessels with mild amount of plaque P2 Moderate 101-300 3-4 1-2 vessels with moderate amount, 3 vessels with mild amount of plaque P3 Severe 301-999 5-7 3 vessels with moderate amount, 1 vessel with severe amount of plaque P4 Extensive >1000 >8 2-3 vessels with severe amount of plaque Calcium Score: Severe: 3 vessels w/moderate amount, 1 vessel w/severe amt of plaque Conclusion: Moderate amount of atherosclerotic plaque
== END | disposition home or self-care (01) ==
LOC: CT 07:09
PROVIDERS: PCP Family Medicine; Referring Provider Nurse Practitioner Gerontology; Visit Provider Nurse Practitioner Gerontology
DX: R07.9 Chest pain, unspecified (principal); I25.10 Atherosclerotic heart disease of native coronary artery without angina pectoris
CPT/HCPCS: 75571; 76380

== ENCOUNTER → 2024-06-14 | Outpatient (CLI) | payer MEDICARE, SELFPAY ==
--- NOTE | 2024-06-18 07:26 | STRESSREP ---
Stress Test Report Pharmacologic myocardial perfusion stress test. 64-year-old lady with a history of chest pain Resting EKG demonstrates sinus bradycardia with a rate of 58 bpm. Resting blood pressure is 164/88 mmHg. 0.4 mg of regadenoson was infused per usual protocol followed by rapid intravenous saline flush injection. Continuous EKG monitoring was performed. The maximum heart rate was 98 bpm which was 63% of max impacted heart rate the maximum workload was 1 metabolic equivalent. At rest there were no ST or T wave changes noted to suggest ischemia and at peak infusion nonspecific ST changes were noted which did not meet the criteria for ischemia. No clinical angina is noted. The final blood pressure was 124/84 mmHg. Myocardial perfusion protocol. 11.5 mCi of technetium 99m sestamibi was injected at rest. 0.4 mg of regadenoson was infused per usual protocol. At peak infusion 34.2 mCi of technetium 99m sestamibi was injected stress images were obtained stress and rest images were reconstructed and compared in the short axis vertical long and horizontal long axis. Gated images were also obtained. Perfusion SPECT analysis: Review of the stress images demonstrate normal uptake of tracer noted in all areas of the myocardium. The resting images similar demonstrated normal uptake of tracer noted in all areas of the myocardium. No areas of reversibility are noted to suggest ischemia and no previous infarct is noted. Gated SPECT analysis: The gated ejection fraction is 77%. Conclusion: Normal pharmacologic myocardial perfusion stress test. Preserved ejection fraction.
== END | disposition home or self-care (01) ==
LOC: CVS 06:54
PROVIDERS: PCP Family Medicine; Referring Provider Nurse Practitioner Gerontology; Visit Provider Nurse Practitioner Gerontology
DX: R07.9 Chest pain, unspecified (principal); R93.1 Abnormal findings on diagnostic imaging of heart and coronary circulation; E78.5 Hyperlipidemia, unspecified
CPT/HCPCS: 78452; 93017; A9500; A4216; J2785

== ENCOUNTER → 2024-06-22 | Outpatient (CLI) | payer MEDICARE, SELFPAY ==
--- NOTE | 2024-06-22 12:11 | US_ITS ---
STUDY: RENAL ULTRASOUND - COMPLETE REASON FOR EXAM: Female, 64 years old. UTI TECHNIQUE: Ultrasound evaluation of the kidneys was performed with real-time and static hester-scale imaging. COMPARISON: None. FINDINGS: RIGHT KIDNEY: Normal location of the right kidney, which is normal in size. The right kidney measures 12.9 cm. There is a normal cortex of the right kidney. The renal cortex measures 1.6 cm. There is no right renal mass or cyst. There are no right renal calculi. There is no right hydronephrosis. DISTAL RIGHT URETER: There is non-visualization of the distal right ureter. There is no demonstrated right ureterovesical junction calculus. There is a visualized right ureteral jet. LEFT KIDNEY: Normal location of the left kidney, which is normal in size. The left kidney measures 11.2 cm. There is a normal cortex of the left kidney. The renal cortex measures 2.3 cm. There is no left renal mass or cyst. There are no left renal calculi. There is no left hydronephrosis. DISTAL LEFT URETER: There is non-visualization of the distal left ureter. There is no demonstrated left ureterovesical junction calculus. There is a visualized left ureteral jet. BLADDER: The distended urinary bladder has a volume of 121 ml. The empty urinary bladder has a volume of ml. There is a normal wall thickness of the distended urinary bladder. There is no demonstrated mass within the urinary bladder. There are no demonstrated bladder calculi. US/Kidney and Bladder IMPRESSION: Normal ultrasound of the kidneys and urinary bladder. Electronically Signed: Edilson Sarmiento MD at 17:57 EDT ,
== END | disposition home or self-care (01) ==
LOC: US 12:08
PROVIDERS: PCP Family Medicine; Referring Provider Urology; Visit Provider Urology
DX: N39.0 Urinary tract infection, site not specified (principal)
CPT/HCPCS: 76770

== ENCOUNTER → 2024-07-23 | Outpatient (CLI) | payer MEDICARE, SELFPAY ==
[2024-07-23 09:59] LABS: Bacteria 0 SEEN /hpf (None Seen); Mucous, Urine 0 SEEN /hpf (<or=2+); Red Blood Cells-Urine 0 SEEN /hpf (0-5)
--- OUTSIDE RECORDS SUMMARY | 2024-07-23 10:59 | XMS RPT_ITS | CCD ---
Author Organization [facility] Inform ion Partnership [facility] Care Team Providers Care Loft Rigger Name Role Phone Jed Sutherland Primary Care Provider TERESA VANEGAS Attending UnavailINESSA Richardson Referring Unavailable JED SUTHERLAND Primary Care Unavailtj Sutherland MD, Jed Joyner Primary Care Provider Allergies Allergy Classification Reported Allergen(s) Allergy Type Date of Onset Reaction(s) Facility (4 sources) Codeine; Translations: [CODEINE] Drug Allergy 7 GI [facility] (4 sources) Penicillins; Translations: [PENICILLINS] Propensity to adverse reactions 7 [facility] (4 sources) Sulfonamides (Antibiotic); Translations: [SULFA (SULFONAMIDE ANTIBIOTICS)] Propensity to adverse reactions 7 [facility] Medications Current Medications Medication Drug Class(es) Dates Sig (Normalized) Sig (Original) atorvastatin 20 mg oral tablet (3 sources) HMG-CoA Reductase Inhibitor Start: 10-10-2017 atorvastatin (LIPITOR) 20 mg tablet 10/10/2017 Active escitalopram 5 mg oral tablet (3 sources) Serotonin Reuptake Inhibitor Start: 10-18-2017 escitalopram oxalate (LEXAPRO) 5 mg tablet 10/18/2017 Active FREESTYLE LITE METER monitoring kit (3 sources) Start: 09-14-2017 FREESTYLE LITE METER monitoring kit 09/14/2017 Active Start: 09-14-2017 FREESTYLE LITE METER monitoring kit 0 09/14/2017 Active hydroCHLOROthiazide 25 mg oral tablet (3 sources) Thiazide Diuretic Start: 09-08-2017 hydroCHLOROthiazide (HYDRODIURIL, ESIDRIX) 25 mg tablet 09/08/2017 Active losartan potassium 50 mg oral tablet (3 sources) Angiotensin 2 Receptor Dacia Start: 07-21-2017 losartan (COZAAR) 50 mg tablet 07/21/2017 Active metFORMIN hydrochloride 500 mg oral tablet (3 sources) Biguanide Start: 10-10-2017 metFORMIN (GLUCOPHAGE) 500 mg tablet 10/10/2017 Active Completed/Discontinued Medications Medication Drug Class(es) Dates Sig (Normalized) Sig (Original) polyethylene glycol 3350 272436 mg / potassium chloride 2970 mg / sodium bicarbonate 6740 mg / sodium chloride 5860 mg / sodium sulfate 09088 mg powder for oral solution (3 sources) Osmotic Laxative Start: 10-18-2017 End: 01-04-2023 GAVILYTE-G 236-22.74-6.74 -5.86 gram suspension 10/18/2017 01/04/2023 Discontinued Problems Active Problems Problem Classification Problem Date Documented Da te Episodic/Chronic Other screening for suspected conditions (not mental disorders or infectious disease) (3 sources) Patient encounter status; Translations: [Encounter for screening for malignant neoplasm of colon] Onset: 01-04-2023 Episodic Past or Other Problems Problem Classification Problem Date Documented Da te Episodic/Chronic Abdominal pain (3 sources) Chronic abdominal pain; Translations: [Unspecified abdominal pain] Onset: 07-30-2011 07-30-2011 Episodic Other connective tissue disease (3 sources) Fibromyalgia; Translations: [Fibromyalgia] Onset: 07-30-2011 07-30-2011 Episodic Other gastrointestinal disorders (1 source) Abdominal mass; Translations: [Right lower quadrant abdominal swelling, mass and lump] Onset: 02-01-2007 Resolved: 07-30-2011 07-30-2011 Episodic Results Test Name Value Interpretation Reference Range Facility ANES POSTPROC EVALon 023 ANES POSTPROC EVAL HNO ID: [id number] Author: Nohemy Sanabria APRN.CRNA Service: Anesthesiology Author Type: Nurse Stars Coordinator Type: Anesthesia Postprocedure Evaluation Filed: 01/04/2023 8:35 AM Note Text: POST ANESTHESIA EVALUATION NOTE : 1960 Procedure Summary Date: 01/04/23 Room / Location: Ambulatory Surgery Anesthesia Start: 809 Anesthesia Stop: 834 Procedure: COLONOSCOPY SCREENING Diagnosis: Encounter for screening for malignant neoplasm of colon (High risk colon cancer surveillance: Personal history of colonic polyps) Scheduled Providers: Teresa Vanegas MD Responsible Provider: Nohemy Sanabria APRN.WESTERN TACK ASSEMBLY LINE WORKER Anesthesia Type: MAC ASA Status: 2 Anesthesia Type: MAC Last Vitals Vitals Value Taken Time BP 126/72 01/04/2331 Temp 36.3 ?C (97.4 ?F) 01/04/23830 Pulse 64 01/04/23 0831 Resp 16 01/04/23830 SpO2 95 % 01/04/23830 Post Anesthesia Patient Status Patient Evaluation: PACU. PACU/ICU Patient Condition: stable. Anticipated Disposition: phase 2 then home. Neurological Status: aware and responsive. Pulmonary Status: breathing comfortably on room air Airway Control: returned to baseline unsupported. Cardiovascular Status: stable. Pain Management: clinically adequate - multimodal analgesia pain management approach Postoperative Hydration: acceptable. Intraoperative Events: no significant anesthesia events Post Operative Nausea/Vomiting Status: no significant post operative nausea or vomiting Recommendation: continue current plan of care. Anesthesia Observations No Documentation SIGNATURE: Nohemy Sanabria APRN.WESTERN TACK ASSEMBLY LINE WORKER PATIENT NAME: Bel Lazo DATE: January 04, 2023 TIME: 8:35 AM CSN: [id number] Normal [facility] ANES PRE-OPon 01-04-2023 ANES PRE-OP HNO ID: [id number] Author: Nohemy Sanabria APRN.WESTERN TACK ASSEMBLY LINE WORKER Service: Anesthesiology Author Type: Nurse Stars Coordinator Type: Anesthesia Preprocedure Evaluation Filed: 01/04/2023 8:10 AM Note Text: ANESTHESIOLOGY DAY OF SURGERY NOTE : 1960 Procedure Information Date/Time: 01/04/23 08 Scheduled providers: Teresa Vanegas MD Procedure: COLONOSCOPY SCREENING Location: Ambulatory Surgery Estimated body mass index is 35.43 kg/m? as calculated from the following: Height as of this encounter: 160 cm (5' 3 ). Weight as of this encounter: 90.7 kg (200 lb). Most recent hematocrit and potassium results: No results found for this basename: HCT,HEMATOCRIT,K,POTASSI UM Relevant Problems No relevant active problems I - PHYSICAL EVALUATION AIRWAY Patient intubated: No. Tracheostomy tube not present Mallampati: II. TM distance: >3 FB. Neck ROM: full ROM without neurological symptoms. Mouth opening: adequate. Short neck: no. Thick neck: no DENTAL Dental findings: teeth intact. Additional exam findings: no II - ANESTHESIA PLAN ASA Score: 2 Anesthetic Plan: MAC The patient is not a current smoker. NPO Status: adequate Beta Dacia Monitoring Plan Monitoring plan: standard ASA. Post Procedure Analgesic Plan Postoperative analgesic plan: parenteral or oral opioids and multimodal analgesia. Informed Consent Anesthetic risks, benefits, alternatives, personnel and consent discussed: yes. Patient / Responsible Democrat agrees to proceed: yes Patient / Surrogate agrees to blood products: blood products not planned Significant changes in the patient condition since the History and Physical, not otherwise documented in primary service progress note: no. Potential Anesthesia issues that may suggest increased risk of complications or contraindication to planned procedure: none. Vitals Value Taken Time BP 147/73 01/04/2344 Pulse 74 01/04/23743 Resp 16 01/04/23743 Temp 36.2 ?C (97.2 ?F) 01/04/23743 SpO2 97 % 01/04/23743 Outpatient Medications as of 01/04/2023 Medication Sig - atorvastatin (LIPITOR) 20 mg tablet - escitalopram oxalate (LEXAPRO) 5 mg tablet - hydroCHLOROthiazide (HYDRODIURIL, ESIDRIX) 25 mg tablet - losartan (COZAAR) 50 mg tablet - metFORMIN (GLUCOPHAGE) 500 mg tablet - FREESTYLE LITE STRIPS test strip - FREESTYLE LITE METER monitoring kit - FREESTYLE LANCETS 28 gauge misc - GAVILYTE-G 236-22.74-6.74 -5.86 gram suspension No current facility-administered medications on file as of 01/04/2023. I have interviewed and examined the patient. I have reviewed the medical record and/or the pre-anesthesia evaluation, pertinent labs, and test results. This contains updated information obtained within 48 hours of Surgery/Procedure. SIGNATURE: Nohemy Sanabria APRN.WESTERN TACK ASSEMBLY LINE WORKER PATIENT NAME: Bel Lazo DATE: January 04, 2023 TIME: 8:09 AM CSN: [id number] Normal [facility] Colonoscopyon 01-04-2023 Colonoscopy [facility] Patient Name: Bel Lazo Procedure Date: 01/04/2023 8:12 AM Date of : 1960 Admit Type: Outpatient Age: 62 Room: [facility] Gender: Female Note Status: Finalized Attending MD: Teresa Vanegas MD Procedure: Colonoscopy Indications: High risk colon cancer surveillance: Personal history of colonic polyps Providers: Teresa Vanegas MD Patient Profile: Last Colonoscopy: 5 years ago. Referring Physician: Inessa Prabhakar (pa) (Referring MD) Medicines: Propofol per Anesthesia Complications: No immediate complications. Requesting Provider: Procedure: Pre-Anesthesia Assessment: - Prior to the procedure, a History and Physical was performed, and patient medications and allergies were reviewed. The patient's tolerance of previous anesthesia was also reviewed. The risks and benefits of the procedure and the sedation options and risks were discussed with the patient. All questions were answered, and informed consent was obtained. Prior Anticoagulants: The patient has taken no anticoagulant or antiplatelet agents. ASA Grade Assessment: II - A patient with mild systemic disease. After reviewing the risks and benefits, the patient was deemed in satisfactory condition to undergo the procedure. After I obtained informed consent, the scope was passed under direct vision. Throughout the procedure, the patient's blood pressure, pulse, and oxygen saturations were monitored continuously. The Colonoscope was introduced through the anus and advanced to the cecum, identified by appendiceal orifice and ileocecal valve. I was present and participated during the entire procedure, including non-valdivia portions, and during the administration and monitoring of Moderate Sedation. The colonoscopy was performed without difficulty. The patient tolerated the procedure well. The quality of the bowel preparation was good. The ileocecal valve, appendiceal orifice, and rectum were photographed. Moderate Sedation: MAC anesthesia was administered by the anesthesia team. Findings: A few medium-mouthed diverticula were found in the sigmoid colon and descending colon. External hemorrhoids were found during endoscopy. The hemorrhoids were Grade II (internal hemorrhoids that prolapse but reduce spontaneously). Impression: - Diverticulosis in the sigmoid colon and in the descending colon. - External hemorrhoids. - No specimens collected. Recommendation: - Resume previous diet. - Continue present medications. - Repeat colonoscopy in 5 years for surveillance. - The patient is not currently taking anticoagulant or antiplatelet agents. - Patient has a contact number available for emergencies. The signs and symptoms of potential delayed complications were discussed with the patient. Return to normal activities tomorrow. Written discharge instructions were provided to the patient. Procedure Code(s): --- Professional --- 09404, Colonoscopy, flexible; diagnostic, including collection of specimen(s) by brushing or washing, when performed (separate procedure) CPT copyright 2020 [employer]. All rights reserved. The codes documented in this report are preliminary and upon rotary drum dyer review may be revised to meet current compliance requirements. Attending Participation: I personally performed the entire procedure. Scope In: 8:15:40 AM Scope Out: 8:25:26 AM MD Teresa Randall MD 01/04/2023 8:33:14 AM This report has been signed electronically by Teresa Vanegas MD Number of Addenda: 0 Note Initiated On: 01/04/2023 8:12 AM Estimated Blood Loss: Estimated blood loss: none. Normal [facility] Colonoscopy Study observatio non 01-04-2023 [facility] Patient Name: Bel Lazo Procedure Date: 01/04/2023 8:12 AM Date of : 1960 Admit Type: Outpatient Age: 62 Room: [place] [address] Gender: Female Note Status: Finalized Attending MD: Teresa Vanegas MD Procedure: Colonoscopy Indications: High risk colon cancer surveillance: Personal history of colonic polyps Providers: Teresa Vanegas MD Patient Profile: Last Colonoscopy: 5 years ago. Referring Physician: Inessa Prabhkaar (pa) (Referring ) Medicines: Propofol per Anesthesia Complications: No immediate complications. Requesting Provider: Procedure: Pre-Anesthesia Assessment: - Prior to the procedure, a History and Physical was performed, and patient medications and allergies were reviewed. The patient's tolerance of previous anesthesia was also reviewed. The risks and benefits of the procedure and the sedation options and risks were discussed with the patient. All questions were answered, and informed consent was obtained. Prior Anticoagulants: The patient has taken no anticoagulant or antiplatelet agents. ASA Grade Assessment: II - A patient with mild systemic disease. After reviewing the risks and benefits, the patient was deemed in satisfactory condition to undergo the procedure. After I obtained informed consent, the scope was passed under direct vision. Throughout the procedure, the patient's blood pressure, pulse, and oxygen saturations were monitored continuously. The Colonoscope was introduced through the anus and advanced to the cecum, identified by appendiceal orifice and ileocecal valve. I was present and participated during the entire procedure, including non-valdivia portions, and during the administration and monitoring of Moderate Sedation. The colonoscopy was performed without difficulty. The patient tolerated the procedure well. The quality of the bowel preparation was good. The ileocecal valve, appendiceal orifice, and rectum were photographed. Moderate Sedation: MAC anesthesia was administered by the anesthesia team. Findings: A few medium-mouthed diverticula were found in the sigmoid colon and descending colon. External hemorrhoids were found during endoscopy. The hemorrhoids were Grade II (internal hemorrhoids that prolapse but reduce spontaneously). Impression: - Diverticulosis in the sigmoid colon and in the descending colon. - External hemorrhoids. - No specimens collected. Recommendation: - Resume previous diet. - Continue present medications. - Repeat colonoscopy in 5 years for surveillance. - The patient is not currently taking anticoagulant or antiplatelet agents. - Patient has a contact number available for emergencies. The signs and symptoms of potential delayed complications were discussed with the patient. Return to normal activities tomorrow. Written discharge instructions were provided to the patient. Procedure Code(s): --- Professional --- 75874, Colonoscopy, flexible; diagnostic, including collection of specimen(s) by brushing or washing, when performed (separate procedure) CPT copyright 2020 [employer]. All rights reserved. The codes documented in this report are preliminary and upon rotary drum dyer review may be revised to meet current compliance requirements. Attending Participation: I personally performed the entire procedure. Scope In: 8:15:40 AM Scope Out: 8:25:26 AM MD Teresa Randall MD 01/04/2023 8:33:14 AM This report has been signed electronically by Teresa Vanegas MD Number of Addenda: 0 Note Initiated On: 01/05/20 (more content not included)... [facility] Radiology Study observation (narrative) [facility] HISTORY PHYSICALon HISTORY PHYSICAL HNO ID: [id number] Author: Teresa Vanegas MD Service: Gastroenterology Author Type: Physician Type: HANDP Filed: 01/04/2023 8:02 AM Note Text: HISTORY AND PHYSICAL Bel Lazo, 62 year old female here for colonoscopy, average risk for colon cancer screening Current history and physical on file: No Is a new History and Physical required for today's visit? Yes Indication for procedure: Screening PROCEDURE(S) SCHEDULED FOR: Colonoscopy with or without biopsies and with or without removal of polyps or lesions, dilation (any means), treatment of bleeding (any means), based on clinical findings. BASELINE BEHAVIOR: Calm BASELINE ORIENTATION: A AND O x3 All medications and allergies reviewed: Yes Skin Assessment: Warm dry muscus membranes pink Airway/Respiratory Assessment: Airway: visualization of the uvula- Yes Mouth: opening greater than 2 fingerbreadths- Yes Neck: full range of motion- Yes Breath sounds clear/equal- Yes Cardiac Assessment: Regular rate and rhythm without murmur Abdominal Assessment: Abdomen soft, non-tender, no masses or organomegaly. Sedation Plan: Deep Additional Comments: None Teresa Vanegas MD [facility] CNCOon 11-05-2022 CNCO Letter Text [facility] CNPNon 11-05-2022 CNPN Telephone (GSTNOR) -------- BEL LAZO ([id number]) 1960 F Date Time Provider Department 11/05/22 TERESA VANEGAS GSTNOR During your visit today, we recorded the following information about you: Carina Farris 11/05/2022 2:[address] screening colonoscopy order for [facility]. Thanks, Carina Prabhakar PA-C 11/05/2022 3:07 PM Signed Bowel Preparation Instructions for: Miralax-Gatorade Preparations IF YOU DO NOT FOLLOW THESE DIRECTIONS, YOUR COLONOSCOPY WILL BE CANCELLED. Valdivia Instructions: Your bowel must be empty so that your doctor can clearly view your colon. Follow all of the instructions in this handout EXACTLY as they are written. Do NOT eat any solid food the ENTIRE day before your colonoscopy. Buy your bowel preparation at least 5 days before your colonoscopy. Four (4) Dulcolax laxative tablets containing 5mg of bisacodyl each (NOT Dulcolax stool softener) One (1) 8.3oz. bottle Miralax (238 grams) or generic equivalent 2 x 32oz. Bottles of Gatorade (NOT RED) Diabetic Patients: Use G2 (Gatorade 2) TRANSPORTATION on the Day of Your Exam A responsible adult MUST be present with you at Check In prior to your colonoscopy and REMAIN in the endoscopy area until you are discharged. You are NOT ALLOWED to drive, take a taxi or bus, or leave the Endoscopy Center ALONE. If you do not have a responsible driver lifter of sanitation truck (family member or friend) with you to take you home, your exam cannot be done with sedation and will be cancelled. Please bring a list of all of your current medications, including any Cqby-its-Gerfqec medications with you. Medications If you take insulin, diabetic medications or blood thinners such as Coumadin (warfarin), Plavix (clopidogrel), Ticlid (ticlopidine hydrochloride), Agrylin (anagrelide), Xarelto (Rivaroxaban), Pradaxa (Dabigatran), Eliquis (Apixaban), and Effient (Prasugrel). You MUST call the doctors who orders those medicines for instructions on altering the dosage before your colonoscopy. All other medications should be taken the day of the exam with a sip of water including ASPIRIN. Five (5) Days Before Your Colonoscopy Do NOT take medicines that stop diarrhea - such as Imodium, Kaopectate, or Pepto Bismol. Do NOT take fiber supplements - such as Metamucil, Citrucel, or Perdiem. Do NOT take products that contain iron - such as multi-vitamins (the label lists what is in the products). Three (3) Days Before Your Colonoscopy Do NOT eat high-fiber foods - such as popcorn, beans, seeds (flax, sunflower, quinoa), multigrain bread, nuts, salad/vegetables, or fresh and dried fruit. 1 Bowel Preparation Instructions for: Miralax-Gatorade Preparations One (1) Day Before Your Colonoscopy Only drink clear liquids the ENTIRE DAY before your colonoscopy. Do NOT eat any solid foods. Drink at least 8 ounces of clear liquids every hour after waking up. The clear liquids you can drink include: Clear Liquid (NO RED LIQUIDS) DO NOT DRINK Gatorade, Pedialyte or Powerade Clear broth or bouillon Coffee or tea (no milk or non-dairy creamer) Carbonated and non-carbonated soft drinks Dilan-Aid or other fruit flavored drinks Strained fruit juices (no pulp) Jell-O, popsicles, hard candy Water Alcohol Milk or non-dairy creamers Noodles or vegetables in soup Juice with pulp Liquid you cannot see through Do not use tobacco/vaping products Mix 1/2 of Miralax bottle (119 grams) in each 32 ounces of Gatorade bottle until dissolved. Keep cool in the refrigerator. DO NOT ADD ICE. The bowel preparation solution will be consumed in two parts. Part 1 5:00 PM - Evening before your colonoscopy Take 4 Dulcolax tablets. 6 PM - Evening before your colonoscopy Drink 32 oz. of the mixed solution. Drink an 8 oz. glass of bowel preparation every 15 minutes for a total of 4 glasses. Fifteen (15) minutes later, drink an 8 oz. glass of of clear liquids every 15 minutes for a total of 2 glasses. You may continue to drink clear liquids till midnight. Part 2 On the day of your colonoscopy you may drink clear liquids up to (three) 3 hours prior to procedure. 4 1/2 hours before your colonoscopy Take another 32 oz. bottle of mixed solution. Drink an 8 oz. glass of bowel prep every 15 minutes for a total of 4 glasses. Fifteen (15) minutes later, drink an 8 oz. glass of clear liquids every 15 minutes for a total of 2 glasses. You may continue to drink clear liquids up to (three) 3 hours before your exam. 2 08/2019 Inessa Prabhakar PA-C 11/05/2022 3:07 PM Signed Addended by: INESSA PRABHAKAR on: 11/05/2022 03:07 PM Modules accepted: Orders, SmartSet Allergies As of Date: 11/05/2022 Noted Allergy Reaction CODEINE 01/17/2007 8 - GI Upset PENICILLINS 01/17/2007 4 - Hives SULFA (SULFONAMIDE ANTIBIOTICS) 01/17/2007 4 - Hives Date Reviewed: 11/16/2017 Reviewed by: Davidson (more content not included)... Normal [facility] Vital Signs Date Time Vital Sign Value Performing Clinician Brigitte bello 01-04-2023 08:47-0400 Diastolic blood pressure 83 mm[Hg] Teresa Vanegas MD Work Phone: [facility] 01-04-2023 08:47-0400 Heart rate 60 /min Teresa Vanegas MD Work Phone: [facility] 01-04-2023 08:47-0400 Respiratory rate 18 /min Teresa Vanegas MD Work Phone: [facility] 01-04-2023 08:47-0400 SaO2% (BldA) [Mass fraction] 95 % Teresa Vanegas MD Work Phone: [facility] 01-04-2023 08:47-0400 Systolic blood pressure 138 mm[Hg] Teresa Vanegas MD Work Phone: [facility] 01-04-2023 08:31-0400 Body temperature 97.39 [degF] Teresa Vanegas MD Work Phone: [facility] 01-04-2023 07:44-0400 Body height 160 cm Teresa Vanegas MD Work Phone: [facility] 01-04-2023 07:44-0400 Body mass index (BMI) [Ratio] 35.43 kg/m2 Teresa Vanegas MD Work Phone: [facility] 01-04-2023 07:44-0400 Body weight 90.72 kg Teresa Vanegas MD Work Phone: [facility] Encounters Encounter Date Encounter Type Care Provider Facility Start: 01-04-2023 End: 01-04-2023 ambulatory TERESA VANEGAS Facility:[facility] Start: 01-04-2023 End: 01-04-2023 Subsequent hospital visit by physician Teresa Vanegas MD Work Phone: Ambulatory Surgery Comment on above: Encounter for screen ing for malignant neoplasm of colon [Z12.11] Start: 12-31-2022 ambulatory Teresa Vanegas MD Work Phone: Ambulatory Surgery Start: 11-05-2022 Telephone encounter Teresa Vanegas MD Work Phone: [facility] [place] Comment on above: screening colon orde r Procedures Date Procedure Procedure Detail Performing Clinician Start: 01-04-2023 Colonoscopy flx dx w /collj spec when pfrmd Inessa Prabhakar PA-C Work Phone: Start: 01-04-2023 Colonoscopy Teresa quevedo MD Work Phone: Start: 11-16-2017 Colonoscopy Teresa quevedo MD Work Phone: Plan of Treatment Date Care Activity Detail Author Start: 2033 RSV Vaccine (1 - 1-d ose 75+ series) RSV Vaccine (1 - 1-dose 75+ series) [facility] Start: 05-22-2028 Urine microalbumin profile DTaP,Tdap,Td Vaccine (2 - Td or Tdap) [facility] Start: 01-05-2028 Screening for malign ant neoplasm of colon [facility] Start: 05-27-2024 Covid-19 Vaccine ( season) Covid-19 Vaccine ( season) [facility] Start: 05-27-2024 Influenza vaccination Influenza Vacc ine (#1) [facility] Start: 09-26-2023 Advance Directive Discussion Advance Directive Discussion [facility] Start: 05-27-2023 Influenza vaccination INFLUENZ A (Season Ended) [facility] Start: 2023 Pneumococcal Vaccine : 65+ (2 of 2 - PCV) Pneumococcal Vaccine: 65+ (2 of 2 - PCV) [facility] Start: 2023 Screening for osteoporosis Bone Density Screening [facility] Start: 11-16-2022 Colonoscopy COLONOSCOPY [facility] Start: 11-16-2022 COLORECTAL CANCER SCREENING COLORECTAL CANCER SCREENING [facility] Start: 09-26-2022 DEPRESSION ASSESSMENT DEPRESSION ASS ESSMENT [facility] Start: 05-27-2022 Influenza vaccination INFLUENZA (#1) [facility] Start: 05-02-2020 LIPID SCREEN LIPID SCREEN [facility] Start: 02-20-2008 SHINGRIX VACCINE (1 of 2) SHINGRIX VACCINE (1 of 2) [facility] Start: 2003 COLOGUARD (FIT-DNA) COLOGUARD (FIT-D NA) [facility] Start: [address] COLONOGRAPHY [facility] Start: 2003 DIABETES SCREEN DIABETES SCREEN [facility] Start: 2003 Diabetes Screening Diabetes Screenin g [facility] Start: 2003 FECAL OCCULT BLOOD FECAL OCCULT BLOO D [facility] Start: 2003 Lipid panel Lipid Screening [facility] Start: 2003 LIPID SCREEN LIPID SCREEN [facility] Start: 2003 Screening for malign ant neoplasm of colon [facility] Start: 2003 SIGMOIDOSCOPY SIGMOIDOSCOPY [facility] Start: 1998 Mammography MAMMOGRAM [facility] Start: 1998 Screening for malign ant neoplasm of breast Mammogram Screening [facility] Start: 02-20-1988 HPV TESTING HPV TESTING [facility] Start: 1979 PAP TESTING PAP TESTING [facility] Start: 1977 Urine microalbumin profile DTAP,TDAP,TD (1 - Tdap) [facility] Start: 02-20-1976 Anxiety Screening Anxiety Screening [facility] Start: 02-20-1976 Depression Screening Depression Scre ening [facility] Start: 02-20-1976 HEPATITIS C SCREENING HEPATITIS C [facility] Start: 02-20-1976 Hepatitis C screening Hepatitis C [facility] Start: 02-20-1976 HIV SCREENING HIV SCREENING [facility] Start: 1960 COVID-19 VACCINE (#1) COVID-19 VACCI NE (#1) [facility] End: 11-05-2023 Screening colonoscopy COLONOSCOPY SCREENING Endoscopy Routine Encounter for screening for malignant neoplasm of colon 1 Occurrences starting 11/05/2022 until 11/05/[address] [facility] Work Phone: Comment on above: 1 Occurrences starti ng 11/05/2022 until 11/05/2023 [facility] Immunizations Immunization Date Immunization Notes Care Provider Norberto lopez 06-11-2020 influenza virus vacc ine, unspecified formulation Teresa Vanegas MD Work Phone: [facility] Payers Date Payer Category Payer Medicare MMO MEDICARE MMO [employer] HMO [id number] 2022-Present [phone] [address] [place] [address] [facility] [place] [id number] 2022 Unknown [id number] Social History Date Type Detail Facility Start: 05-07-2011 Tobacco smoking stat us MNIS Never smoked tobacco [facility] Work Phone: Start: 05-07-2011 Tobacco use and exposure Smokeless tobacco non-user [facility] Work Phone: Start: 11-16-2017 End: 01-04-2023 Alcohol intake Current drinker of alcohol (finding) [facility] Start: 11-16-2017 End: 01-04-2023 Alcohol intake [facility] Start: 01-17-2007 Alcohol Comment oce a week [facility] Start: 1960 Sex Assigned At Not on file C [facility] Start: 01-04-2023 Tobacco use panel [facility] Medical Equipment Procedure Code Equipment Code Equipment Origin al Text Equipment Identifier Dates Start: 09-14-2017 Clinical Notes 02-01-2007 to 01-04-2023 Celestina Whitt RN - 01/04/2023 9:08 AM Celestina Briscoe RN - 01/04/2023 9:08 AM Teresa Brownlee MD - 01/04/2023 8:00 AM Teresa Brownlee MD - 01/04/2023 8:00 AM EDT Note Date & Type Note Facility 01-04-2023 Note HNO ID: [id number] Author: Celesitna Whitt RN Service: ? Author Type: Registered Nurse Type: Nursing Progress Note Filed: 01/04/2023 9:08 AM Note Text: Dr. Vanegas at bedside to speak to patient. Verbalizes understanding. OK to d/c. [facility] 01-04-[address] Vanegas at bedside to speak to patient. Verbalizes understanding. OK to d/c. [facility] 01-04-[address] Vanegas at bedside to speak to patient. Verbalizes understanding. OK to d/c. documented in this encounter [facility] 01-04-2023 History and physical note HISTORY AND PHYSICAL Bel Lazo, 62 year old female here for colonoscopy, average risk for colon cancer screening Current history and physical on file: No Is a new History and Physical required for today's visit? Yes Indication for procedure: Screening PROCEDURE(S) SCHEDULED FOR: Colonoscopy with or without biopsies and with or without removal of polyps or lesions, dilation (any means), treatment of bleeding (any means), based on clinical findings. BASELINE BEHAVIOR: Calm BASELINE ORIENTATION: A & O x3 All medications and allergies reviewed: Yes Skin Assessment: Warm dry muscus membranes pink Airway/Respiratory Assessment: Airway: visualization of the uvula- Yes Mouth: opening greater than 2 fingerbreadths- Yes Neck: full range of motion- Yes Breath sounds clear/equal- Yes Cardiac Assessment: Regular rate and rhythm without murmur Abdominal Assessment: Abdomen soft, non-tender, no masses or organomegaly. Sedation Plan: Deep Additional Comments: None Teresa Vanegas MD [facility] Work Phone: 01-04-2023 History and physical note HISTORY AND PHYSICAL Bel Lazo, 62 year old female here for colonoscopy, average risk for colon cancer screening Current history and physical on file: No Is a new History and Physical required for today's visit? Yes Indication for procedure: Screening PROCEDURE(S) SCHEDULED FOR: Colonoscopy with or without biopsies and with or without removal of polyps or lesions, dilation (any means), treatment of bleeding (any means), based on clinical findings. BASELINE BEHAVIOR: Calm BASELINE ORIENTATION: A & O x3 All medications and allergies reviewed: Yes Skin Assessment: Warm dry muscus membranes pink Airway/Respiratory Assessment: Airway: visualization of the uvula- Yes Mouth: opening greater than 2 fingerbreadths- Yes Neck: full range of motion- Yes Breath sounds clear/equal- Yes Cardiac Assessment: Regular rate and rhythm without murmur Abdominal Assessment: Abdomen soft, non-tender, no masses or organomegaly. Sedation Plan: Deep Additional Comments: None Teresa Vaengas MD documented in this encounter [facility] 11-05-2022 Instructions Inessa Prabhakar PA-C - 11/05/2022 3:07 PM EST Images from the original note were not included. Bowel Preparation Instructions for: Miralax-Gatorade Preparations IF YOU DO NOT FOLLOW THESE DIRECTIONS, YOUR COLONOSCOPY WILL BE CANCELLED. [place] Instructions: Your bowel must be empty so that your doctor can clearly view your colon. Follow all of the instructions in this handout EXACTLY as they are written. Do NOT eat any solid food the ENTIRE day before your colonoscopy. Buy your bowel preparation at least 5 days before your colonoscopy. Four (4) Dulcolax laxative tablets containing 5mg of bisacodyl each (NOT Dulcolax stool softener) One (1) 8.3oz. bottle Miralax (238 grams) or generic equivalent 2 x 32oz. Bottles of Gatorade (NOT RED) Diabetic Patients: Use G2 (Gatorade 2) TRANSPORTATION on the Day of Your Exam A responsible adult MUST be present with you at Check In prior to your colonoscopy and REMAIN in the endoscopy area until you are discharged. You are NOT ALLOWED to drive, take a taxi or bus, or leave the Endoscopy Center ALONE. If you do not have a responsible driver lifter of sanitation truck (family member or friend) with you to take you home, your exam cannot be done with sedation and will be cancelled. Please bring a list of all of your current medications, including any Japr-auc-Xtvlvrx medications with you. Medications If you take insulin, diabetic medications or blood thinners such as Coumadin (warfarin), Plavix (clopidogrel), Ticlid (ticlopidine hydrochloride), Agrylin (anagrelide), Xarelto (Rivaroxaban), Pradaxa (Dabigatran), Eliquis (Apixaban), and Effient (Prasugrel). You MUST call the doctors who orders those medicines for instructions on altering the dosage before your colonoscopy. All other medications should be taken the day of the exam with a sip of water including ASPIRIN. Five (5) Days Before Your Colonoscopy Do NOT take medicines that stop diarrhea - such as Imodium, Kaopectate, or Pepto Bismol. Do NOT take fiber supplements - such as Metamucil, Citrucel, or Perdiem. Do NOT take products that contain iron - such as multi-vitamins (the label lists what is in the products). Three (3) Days Before Your Colonoscopy Do NOT eat high-fiber foods - such as popcorn, beans, seeds (flax, sunflower, quinoa), multigrain bread, nuts, salad/vegetables, or fresh and dried fruit. 1 Bowel Preparation Instructions for: Miralax-Gatorade Preparations One (1) Day Before Your Colonoscopy Only drink clear liquids the ENTIRE DAY before your colonoscopy. Do NOT eat any solid foods. Drink at least 8 ounces of clear liquids every hour after waking up. The clear liquids you can drink include: Clear Liquid (NO RED LIQUIDS) DO NOT DRINK Gatorade, Pedialyte or Powerade Clear broth or bouillon Coffee or tea (no milk or non-dairy creamer) Carbonated and non-carbonated soft drinks Dilan-Aid or other fruit flavored drinks Strained fruit juices (no pulp) Jell-O, popsicles, hard candy Water Alcohol Milk or non-dairy creamers Noodles or vegetables in soup Juice with pulp Liquid you cannot see through Do not use tobacco/vaping products Mix 1/2 of Miralax bottle (119 grams) in each 32 ounces of Gatorade bottle until dissolved. Keep cool in the refrigerator. DO NOT ADD ICE. The bowel preparation solution will be consumed in two parts. Part 1 5:00 PM - Evening before your colonoscopy Take 4 Dulcolax tablets. 6 PM - Evening before your colonoscopy Drink 32 oz. of the mixed solution. Drink an 8 oz. glass of bowel preparation every 15 minutes for a total of 4 glasses. Fifteen (15) minutes later, drink an 8 oz. glass of of clear liquids every 15 minutes for a total of 2 glasses. You may continue to drink clear liquids till midnight. Part 2 On the day of your colonoscopy you may drink clear liquids up to (three) 3 hours prior to procedure. 4 1/2 hours before your colonoscopy Take another 32 oz. bottle of mixed solution. Drink an 8 oz. glass of bowel prep every 15 minutes for a total of 4 glasses. Fifteen (15) minutes later, drink an 8 oz. glass of clear liquids every 15 minutes for a total of 2 glasses. You may continue to drink clear liquids up to (three) 3 hours before your exam. 2 08/2019 documented in this encounter [facility] 11-05-2022 Miscellaneous Notes Addended by: INESSA PRABHAKAR on: 11/05/2022 03:07 PM Modules accepted: Orders, SmartSet Please place screening colonoscopy order for Carina Vallejo documented in this encounter [facility] 02-01-2007 History of Past i llness Narrative Problem Noted Date Resolved Date Abdominal or pelvic swelling , mass, or lump, right lower quadrant 02/01/2007 07/30/2011 documented as of this encounter (statuses as of 11/05/2022) [facility] History of Past illness Narrative* Problem Noted Date Resolved Date Abdominal or pelvic swelling , mass, or lump, right lower quadrant 02/01/2007 07/30/2011 documented as of this encounter (statuses as of 12/31/2022) [facility] Diagnosis Encounter for screening for malignant neoplasm of colon- Primary Special screening for malignant neoplasms, colon [facility] Diagnosis Encounter for screening for malignant neoplasm of colon Special screening for malignant neoplasms, colon documented in this encounter [facility] for referral (narrative)* Outpatient Procedure (Routine) - Authorized Specialty Diagnoses / Procedures Referred By Contac t Referred To Contact [facility] Diagnoses Encounter for screening for malignant neoplasm of colon Procedures COLONOSCOPY SCREENING COLONOSCOPY FLX DX W/COLLJ SPEC WHEN Inessa Jackson PA-C [address] [place] [address] [facility] [address] [place] [address] Referral ID Status Reason Start Date Expiration Date Visits Requested Visits Authorized [id number] Authorized Auto-Generat ed Referral 11/05/2022 11/05/2023 1 1 [facility] for referral (narrative)* Outpatient Procedure (Routine) - Closed Specialty Diagnoses / Procedures Referred By Contmeng payton Referred To Contact [facility] Diagnoses Encounter for screening for malignant neoplasm of colon Procedures COLONOSCOPY SCREENING COLONOSCOPY FLX DX W/COLLJ SPEC WHEN Inessa Jackson PA-C [address] [place] [address] [id number] [place] [address] Referral ID Status Reason Start Date Expiration Date V isits Requested Visits Authorized [id number] Closed Auto-Generate d Referral 11/05/2022 11/05/2023 1 1 [facility] for visit Narrative* Outpatient Procedure (Routine) - Closed Specialty Diagnoses / Procedures Referred By Contmeng t Referred To Contact [facility] Diagnoses Encounter for screening for malignant neoplasm of colon Procedures COLONOSCOPY SCREENING COLONOSCOPY FLX DX W/COLLJ SPEC WHEN Inessa Jackson PA-C [address] [place] [address] [facility] [address] [place] [address] Referral ID Status Reason Start Date Expiration Date V isits Requested Visits Authorized [id number] Closed Auto-Generate d Referral 11/05/2022 11/05/2023 1 1 [facility] Summary Purpose Family History No Family History Records Found Advance Directives No Advanced Directives Records Found Additional Source Comments Source Comments (unrecognize d section and content) In the event this informatio n is protected by the Federal Confidentiality of Alcohol and Drug Abuse Patient Records regulations: The Federal rules restrict any use of the information to criminally investigate or prosecute any alcohol or drug abuse patient.[facility] the event this information is protected by the Federal Confidentiality of Alcohol and Drug Abuse Patient Records regulations: The Federal rules restrict any use of the information to criminally investigate or prosecute any alcohol or drug abuse patient.[facility] the event this information is protected by the Federal Confidentiality of Alcohol and Drug Abuse Patient Records regulations: The Federal rules restrict any use of the information to criminally investigate or prosecute any alcohol or drug abuse patient.[facility] Reason for Visit (unrecogniz ed section and content) Reason Comments screening colon order Care Teams (unrecognized sec tion and content) Loft Rigger Relationship Specialty Start Date End Date Jed Sutherland [address] [place] [address] PCP - General Family Medicine 10/14/17 Loft Rigger Relationship Specialty Start Date End Date Jed Sutherland [address] [facility] [address] [place], [place] [address] PCP - General Family Medicine 10/14/17 Loft Rigger Relationship Specialty Start Date End Date Jed Sutherland MD [address] [facility] [address] [place], [place] [id number] PCP - General Family Medicine 10/14/17 INFORMATION SOURCE (unrecogn ized section and content) DATE CREATED AUTHOR 01/08/2023 [facility] FOR RECORDS PERTAINING TO PATIENTS WHO ARE OR HAVE BEEN ENROLLED IN A CHEMICAL DEPENDENCY/SUBSTANCEABUSE PROGRAM, SOME INFORMATION MAY BE OMITTED. This clinical summary was aggregated from multiple sources. Caution should be exercised in using it in the provision of clinical care. This summary normalizes information from multiple sources, and as a consequence, information in this document may materially change the coding, format and clinical context of patient data. In addition, data may be omitted in some cases. CLINICAL DECISIONS SHOULD BE BASED ON THE PRIMARY CLINICAL RECORDS. [employer] [facility]. provides no warranty or guarantee of the accuracy or completeness of information in this document.
[2024-07-23 12:23] LABS: Absolute Lymphocyte Count 1.44 X10^3/uL (0.83-4.51); Absolute Neutrophil Count 2.4 X10^3/uL (2.0-7.7); Basophil# 0.04 X10^3/uL; Basophil% 0.9 % (0-1); Eosinophil# 0.08 X10^3/uL; Eosinophils% 1.8 % (0-5); Hemoglobin 13.4 g/dL (12.0-15.0); Lymphocyte # 1.44 X10^3/ul (0.83-4.51); Mean Corp Hgb Conc 34.4 g/dL (32-36); Mean Corpuscular Hgb 31.5 pg (27.0-32.0); Mean Corpuscular Volume 91.5 fL (81-99); Mean Platelet Vol. 9.5 fl (6.2-12.0); Monocyte# 0.38 X10^3/uL; Monocyte% 8.7 % (0-10); NRBC Flagged by Analyzer 0 % (0-5); Neutrophil % 55.1 % (47-70); Platelet Count 307 K/mm3 (150-450); RBC Distribution Width SD 43.7 fl (35.1-43.9); Red Blood Count 4.26 M/mm3 (4.2-5.4); White Blood Count 4.4 K/mm3 (4.4-11.0)
[2024-07-23 12:31] LABS: ALB/GLOB Ratio 1.2 RATIO (0.9-2.4); AST(SGOT) 16 U/L (15-37); Alanine Aminotransfer ALT/SGPT 27 U/L (13-56); Albumin, Serum 3.8 g/dL (3.2-5.0); Alkaline Phosphatase 71 U/L (45-117); Anion Gap 6 (5-15); BUN 10 mg/dL (7-18); BUN/Creat Ratio 17.5 RATIO (10-20); Calcium,Total 9.1 mg/dL (8.5-10.1); Chloride 102 mmol/L (98-107); Cholesterol 143 mg/dL (200); Creatinine, Serum 0.57 mg/dL (0.55-1.02); EST Glomerular Filtration Rate 112 mL/min (>60); Est Glom Filt Rate - Afr Amer 136 mL/min (>60); Globulin 3.3 g/dL (2.2-4.2); Glucose 116 mg/dL (74-106); High Density Lipoprotein 44 mg/dL; Potassium 3.6 mmol/L (3.5-5.1); Protein, Total 7.1 g/dL (6.4-8.2); Sodium Level 138 mmol/L (136-145); Triglycerides 139 mg/dL; Very Low Density Lipoprotein 28 mg/dL (5-40)
[2024-07-23 12:37] LABS: Color, Urine Yellow (Yellow); Glucose, Dipstick Normal (Normal); Ketone-Dipstick Negative (Negative); Leukocyte Esterase-Dipstick 25 /ul (Negative); Nitrite-Dipstick Negative (Negative); Occult Blood-Urine Negative /ul (Negative); Protein-Dipstick Negative (Negative); Specific Gravity, Urine 1.005 (1.002-1.030); Urine Bilirubin Dipstick Negative (Negative); Urine Clarity Sl. Cloudy (Clear); Urine Urobilinogen Normal (Normal)
[2024-07-23 12:47] LABS: Squamous Epithelial Cells - UA 0-5 SEEN /hpf (5-10); White Blood Cells 0-5 SEEN /hpf (0-5)
[2024-07-23 12:56] LABS: Microalbumin,Random Urine 9.3 mg/L (NO RANGE EST.); Microalbumin:Creatinine Ratio 5.7 mg/g CRE (<30 mg/g CRE)
[2024-07-23 13:28] LABS: Hemoglobin A1c 6.2 % (3.8-5.6)
== END | disposition home or self-care (01) ==
LOC: MFPLAB 09:55
PROVIDERS: PCP Family Medicine; Referring Provider Family Medicine; Visit Provider Family Medicine
DX: E11.69 Type 2 diabetes mellitus with other specified complication (principal); E11.59 Type 2 diabetes mellitus with other circulatory complications; E55.9 Vitamin D deficiency, unspecified
CPT/HCPCS: 36415; 80053; 80061; 81001; 82043; 82306; 82570; 83036; 85025

== ENCOUNTER → 2025-01-18 | Outpatient (CLI) | payer MEDICARE, SELFPAY ==
[2025-01-18 08:39] LABS: Mucous, Urine 0 SEEN /hpf (<or=2+); Red Blood Cells-Urine 0 SEEN /hpf (0-5)
[2025-01-18 10:50] LABS: Color, Urine Yellow (Yellow); Glucose, Dipstick Normal (Normal); Ketone-Dipstick Negative (Negative); Leukocyte Esterase-Dipstick 500 /ul (Negative); Nitrite-Dipstick Negative (Negative); Occult Blood-Urine Negative /ul (Negative); Protein-Dipstick 15 mg/dl (Negative); Specific Gravity, Urine 1.005 (1.002-1.030); Urine Bilirubin Dipstick Negative (Negative); Urine Clarity Sl. Cloudy (Clear); Urine Urobilinogen Normal (Normal)
[2025-01-18 10:59] LABS: Absolute Lymphocyte Count 1.54 X10^3/uL (0.83-4.51); Absolute Neutrophil Count 2.3 X10^3/uL (2.0-7.7); Bacteria 1+ /hpf (None Seen); Basophil# 0.05 X10^3/uL; Basophil% 1.1 % (0-1); Eosinophil# 0.08 X10^3/uL; Eosinophils% 1.8 % (0-5); Hematocrit 38.8 % (37-47); Hemoglobin 13.1 g/dL (12.0-15.0); Lymphocyte # 1.54 X10^3/ul (0.83-4.51); Lymphocyte % 34.8 % (19-41); Mean Corp Hgb Conc 33.8 g/dL (32-36); Mean Corpuscular Volume 91.7 fL (81-99); Mean Platelet Vol. 9.4 fl (6.2-12.0); NRBC Flagged by Analyzer 0 % (0-5); Neutrophil # 2.34 X10^3/uL (2.7-7.7); Neutrophil % 53.1 % (47-70); Platelet Count 295 K/mm3 (150-450); RBC Distribution Width CV 13.1 % (11.6-14.6); RBC Distribution Width SD 43.7 fl (35.1-43.9); Red Blood Count 4.23 M/mm3 (4.2-5.4); Squamous Epithelial Cells - UA 0-5 SEEN /hpf (5-10); White Blood Count 4.4 K/mm3 (4.4-11.0)
[2025-01-18 11:00] LABS: Transitional Epithelial - Ur 0-5 SEEN /hpf (0-5); White Blood Cells 0-5 SEEN /hpf (0-5)
[2025-01-18 11:18] LABS: Hemoglobin A1c 6.6 % (<=5.6)
[2025-01-18 11:31] LABS: Microalbumin,Random Urine 23.8 mg/L (NO RANGE EST.); Microalbumin:Creatinine Ratio 168.8 mg/g CRE
[2025-01-18 11:34] LABS: ALB/GLOB Ratio 1.5 RATIO (0.9-2.4); AST(SGOT) 22 U/L (<=31); Alanine Aminotransfer ALT/SGPT 19 U/L (<=34); Albumin, Serum 4.2 g/dL (3.4-4.8); Alkaline Phosphatase 77 U/L (35-104); Anion Gap 11 (5-15); BUN 5 mg/dL (4-19); BUN/Creat Ratio 9.5 RATIO (10-20); Calcium,Total 9.1 mg/dL (7.6-11.0); Carbon Dioxide 27.3 mmol/L (21.0-32.0); Chloride 98 mmol/L (98-108); Cholesterol 135 mg/dL (<=200); Creatinine, Serum 0.55 mg/dL (0.70-1.20); EST Glomerular Filtration Rate 101 (>60); Globulin 2.9 g/dL (2.2-4.2); Glucose 134 mg/dL (70-99); High Density Lipoprotein 44 mg/dL; Low Density Lipoprotein Calc. 68 mg/dL; Potassium 3.7 mmol/L (3.3-5.1); Sodium Level 136 mmol/L (133-145); Total Bilirubin 0.61 mg/dL (0.00-1.30); Triglycerides 117 mg/dL; Very Low Density Lipoprotein 23 mg/dL (5-40); Vitamin D,25 Hydroxy 42.5 ng/mL (30-100); cholesterol:hdl ratio screen 3.07
== END | disposition home or self-care (01) ==
LOC: MFPLAB 08:33
PROVIDERS: PCP Family Medicine; Referring Provider Family Medicine; Visit Provider Family Medicine
DX: E11.8 Type 2 diabetes mellitus with unspecified complications (principal); E55.9 Vitamin D deficiency, unspecified
CPT/HCPCS: 36415; 80053; 80061; 81001; 82043; 82306; 82570; 83036; 85025

== ENCOUNTER → 2025-02-06 | Outpatient (CLI) | payer MEDICARE, SELFPAY ==
--- NOTE | 2025-02-06 09:35 | BI_ITS ---
EXAM: SCRN MAMM (CAD)W/ANDREA BILAT 02/06/2025 CLINICAL HISTORY: F, Age 64 y/o , SCREENING MAMMOGRAM TECHNIQUE: Bilateral screening digital breast tomosynthesis with 2D and 3D images. Computer aided detection. COMPARISON: Prior exam(s) dated 02/06/2024, 02/04/2023, 02/03/2022, 02/02/2021. FINDINGS: TISSUE DENSITY: The breast tissue is composed of scattered area of fibroglandular density. Bilateral Breast Mammographic Findings: No significant masses, calcifications or other abnormalities are identified. BI/SCRN MAMM (CAD)W/ANDREA BILAT IMPRESSION: Right Breast: BIRADS 1 NEGATIVE. Left Breast: BIRADS 1 NEGATIVE. OVERALL FINAL ASSESSMENT: BIRADS 1 NEGATIVE. RECOMMENDATION: Routine annual follow-up in 1 Year A letter with findings and recommendations will be mailed to the patient. Reading Location: [id number]
== END | disposition home or self-care (01) ==
PROVIDERS: PCP Nurse Practitioner Family; Referring Provider Obstetrics & Gynecology; Visit Provider Obstetrics & Gynecology
DX: Z12.31 Encounter for screening mammogram for malignant neoplasm of breast (principal)
CPT/HCPCS: 77063; 77067

== ENCOUNTER → 2025-02-19 | Outpatient (CLI) | payer MEDICARE, SELFPAY ==
--- NOTE | 2025-02-19 07:45 | CT_ITS ---
PROCEDURE: CTA CHEST W/WO CONTRAST 02/19/2025 REASON FOR EXAM: H/O THORACIC AORTIC ANEURSYM 4.0CM TECHNIQUE: CTA axial imaging of the chest with intravenous contrast. Multiplanar and multisequence images were obtained. PATIENT PREPARATION: Per protocol CONTRAST: Isovue-300 VOLUME: 100 mL One or more dose reduction techniques were used (e.g., Automated exposure control, adjustment of the mA and/or kV according to patient size, use of iterative reconstruction technique). RADIATION DOSE SUMMARY: CTDlvol: 14 mGy DLP: 574.6 mGycm . COMPARISON: None FINDINGS: Hardware: None Lymph nodes: No suspicious lymph nodes are seen. Heart: Unremarkable. No evidence of coronary artery calcification. Thoracic Aorta: There is dilatation of the ascending thoracic aorta with a transverse dimension of 42.5 mm. Atherosclerotic plaque formation of the aortic arch. Pulmonary Vessels: No evidence of acute pulmonary emboli through the major subsegmental branches. Lungs and Airways: Mild degree of emphysematous changes. Increased linear markings at the left lung base with areas of confluence suggestive of scarring. Mild scarring at the right lung base. Pleura: No evidence of pleural effusion. Upper Abdomen: Moderate-sized hiatal hernia. Bones: Degenerative changes of the thoracic spine. CT/CTA Chest W/WO Contrast IMPRESSION: Dilatation of the root of the ascending thoracic aorta with a transverse dimens ion of 42.5 mm. Linear scarring at the lung bases. Hiatal hernia. Reading Location: [place] [address]
[2025-02-19 08:08] LABS: CREATININE FINGERSTICK < 1.0 mg/dL (0.55-1.02); EGFR FINGERSTICK > 60.0000 mL/min (>60)
== END | disposition home or self-care (01) ==
LOC: CT 07:39
PROVIDERS: PCP Nurse Practitioner Family; Referring Provider Internal Medicine Cardiovascular Disease; Visit Provider Internal Medicine Cardiovascular Disease
DX: I71.20 Thoracic aortic aneurysm, without rupture, unspecified (principal)
CPT/HCPCS: 71275; Q9967

== ENCOUNTER → 2025-06-14 | Outpatient (CLI) | payer MEDICARE, SELFPAY ==
--- OUTSIDE RECORDS SUMMARY | 2025-06-14 07:45 | XMS RPT_ITS | CCD ---
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 [facility]. [place], [place], [address] CTA Chest W/WO Contraston CTA Chest W/WO Contrast [facility] Imaging Services [address] [place], [place] [address] CTA Chest W/WO Contrast MR#: [id number] Acct: [id number] Name: BEL LAZO Rep #: [id number] : 1960 F 65 From: Issac nguyễn MD PCP: SUSAN Samano Status: REG CLI Study: CTA Chest W/WO Contrast Date of Exam: 02/19/25 Exam# [id number] Ordering Dr: Moise Herman MD PROCEDURE: CTA CHEST W/WO CONTRAST 2025 REASON FOR EXAM: H/O THORACIC AORTIC ANEURSYM 4.0CM TECHNIQUE: CTA axial imaging of the chest with intravenous contrast. Multiplanar and multisequence images were obtained. PATIENT PREPARATION: Per protocol CONTRAST: Isovue-300 VOLUME: 100 mL One or more dose reduction techniques were used (e.g., Automated exposure control, adjustment of the mA and/or kV according to patient size, use of iterative reconstruction technique). RADIATION DOSE SUMMARY: CTDlvol: 14 mGy DLP: 574.6 mGycm . COMPARISON: None FINDINGS: Hardware: None Lymph nodes: No suspicious lymph nodes are seen. Heart: Unremarkable. No evidence of coronary artery calcification. Thoracic Aorta: There is dilatation of the ascending thoracic aorta with a transverse dimension of 42.5 mm. Atherosclerotic plaque formation of the aortic arch. Pulmonary Vessels: No evidence of acute pulmonary emboli through the major subsegmental branches. Lungs and Airways: Mild degree of emphysematous changes. Increased linear markings at the left lung base with areas of confluence suggestive of scarring. Mild scarring at the right lung base. Pleura: No evidence of pleural effusion. Upper Abdomen: Moderate-sized hiatal hernia. Bones: Degenerative changes of the thoracic spine. CT/CTA Chest W/WO Contrast IMPRESSION: Dilatation of the root of the ascending thoracic aorta with a transverse dimension of 42.5 mm. Linear scarring at the lung bases. Hiatal hernia. Reading Location: [place] [address] CC: ANAESTHESIOLOGIST-C Sarah Key; Dr. Moise Herman MD General Labor: Signed Normal [facility] EGFROrdered By: Moise solares on 2025 GFR/1.73 sq M.predicted among non-blacks MDRD (S/P/Bld) [Vol rate/Area] mL/min/{1.73_m2} >60 [facility] Breast imaging reportOrdered By: Bruna Peguero on 02-06-2025 Study report [facility] Imaging Services [address] [place] [address] SCRN MAMM (CAD)W/ANDREA BILAT MR#: [id number] Acct: [id number] Name: BEL LAZO Pasha Rep #: [id number] : 1960 F 64 From: Dayanara Peguero MD PCP: MAIRA SamanoC Status: REG CLI Study:SCRN MAMM (CAD)W/ANDREA BILAT Date of Exa m: 02/06/25 Exam# [id number] Ordering Dr: Aimee Powell MD EXAM: SCRN MAMM (CAD)W/ANDREA BILAT 02/06/2025 CLINICAL HISTORY: F, Age 64 y/o , SCREENING MAMMOGRAM TECHNIQUE: Bilateral screening digital breast tomosynthesis with 2D and 3D images. Computeraided detection. COMPARISON: Prior exam(s) dated 02/06/2024, 02/04/2023, 02/03/2022, 02/02/2021. FINDINGS: TISSUE DENSITY: The breast tissue is composed of scattered area of fibroglandular density. Bilateral Breast Mammographic Findings: No significant masses, calcifications or other abnormalities are identified. BI/SCRN MAMM (CAD)W/ANDREA BILAT IMPRESSION: Right Breast: BIRADS 1 NEGATIVE. Left Breast: BIRADS 1 NEGATIVE. OVERALL FINAL ASSESSMENT: BIRADS 1 NEGATIVE. RECOMMENDATION: Routine annual follow-up in 1 Year A letter with findings and recommendations will be mailed to the patient. Reading Location: [facility] CC: ANAESTHESIOLOGIST-C Sarah Key; Dr. Aimee Martin MD ~ General Labor: Signed [facility] SCRN MAMM (CAD)W/ANDREA BILATo n 02-06-2025 SCRN MAMM (CAD)W/ANDREA BILAT [facility] Imaging Services [address] [place] [id number] SCRN MAMM (CAD)W/ANDREA BILAT MR#: [id number] Acct: [id number] Name: BEL LAZO Rep #: [id number] : 1960 F 64 From: Bruna Peguero MD PCP: SUSAN Samano Status: REG CLI Study: SCRN MAMM (CAD)W/ANDREA BILAT Date of Exam: 01/24 01/18 Exam# [id number] Ordering Dr: Aimee Martin EXAM: SCRN MAMM (CAD)W/ANDREA BILAT 02/06/2025 CLINICAL HISTORY: F, Age 64 y/o , SCREENING MAMMOGRAM TECHNIQUE: Bilateral screening digital breast tomosynthesis with 2D and 3D images. Computer aided detection. COMPARISON: Prior exam(s) dated 02/06/2024, 02/04/2023, 02/03/2022, 02/02/2021. FINDINGS: TISSUE DENSITY: The breast tissue is composed of scattered area of fibroglandular density. Bilateral Breast Mammographic Findings: No significant masses, calcifications or other abnormalities are identified. BI/SCRN MAMM (CAD)W/ANDREA BILAT IMPRESSION: Right Breast: BIRADS 1 NEGATIVE. Left Breast: BIRADS 1 NEGATIVE. OVERALL FINAL ASSESSMENT: BIRADS 1 NEGATIVE. RECOMMENDATION: Routine annual follow-up in 1 Year A letter with findings and recommendations will be mailed to the patient. Reading Location: [facility] CC: SUSAN Key; Dr. Aimee Martin MD General Labor: Signed Normal [facility] Absolute lymphocyte countOrd ered By: Jed Sutherland on 01-18-2025 Lymphocytes Auto (Unsp spec) [#/Vol] 1.54 10*3/uL 0.83-4.51 [facility] Absolute neutrophil countOrd ered By: Jed Sutherland on 01-18-2025 Neutrophils (Bld) [#/Vol] 2.3 10*3/uL 2.0-7.7 [facility] Albumin DL <= 20 mg/L (U) [M ass/Vol]Ordered By: Jed Sutherland on 01-18-2025 Urine Random Microalbumin 23.8 mg/L NO RANGE EST. [facility] Anion gap in Serum or Plasma Ordered By: Jed Sutherland on 01-18-2025 Anion gap [Moles/Vol] 11 mmol/L 5-15 [facility] Automated lymphocyte count a s percentage of total leukocytesOrdered By: Jed Sutherland on 01-18-2025 Lymphocytes/100 WBC Auto (Unsp spec) 34.8 % 19-41 [facility] BUN/creatinine ratioOrdered By: Jed Sutherland on 01-18-2025 Urea nitrogen/Creatinine [Mass ratio] 9.5 mg/mg Low 10-20 [facility] Basophil percentageOrdered B y: Jed Sutherland on 01-18-2025 Basophils/100 WBC (Bld) 1.1 % High 0-1 [facility] Bilirubin Test strip Ql (U)O rdered By: Jed Sutherland on 01-18-2025 Bilirubin Ql (U) Negative Negative [facility] Bilirubin, totalOrdered By: Jed Sutherland on 01-18-2025 Bilirubin [Mass/Vol] 0.61 mg/dL 0.00-1.30 [facility] CBC W/Diff, Automatedon 12-26 Absolute Lymph 1.54 X10 3/uL Normal 0.83-4.51 [facility] Comment on above: Order Comment: Order Date: 08/01/24Order Info: [id number]- - CBCD Performed By: #### L 502.0250, L500.4050, L500.4100, L501.9985, L100.0100 ####[facility] [address] [place], [address] Absolute Neut 2.3 X10 3/uL Normal 2.0-7.7 [facility] Comment on above: Order Comment: Order Date: 08/01/24Order Info: 018- - CBCD Performed By: #### L 502.0250, L500.4050, L500.4100, L501.9985, L100.0100 ####[facility] [address] [place], [address] Basophils/100 WBC (Bld) 1.1 % High 0-1 [facility] Comment on above: Order Comment: Order Date: 08/01/24Order Info: 018- - CBCD Performed By: #### L 502.0250, L500.4050, L500.4100, L501.9985, L100.0100 ####[facility] [address] [place], [address] Eosinophils/100 WBC (Bld) 1.8 % Normal 0-5 [facility] Comment on above: Order Comment: Order Date: 08/01/24Order Info: 0184-1 - CBCD Performed By: #### L 502.0250, L500.4050, L500.4100, L501.9985, L100.0100 ####[facility] [address] [place], [address] Erythrocyte distribution width (RBC) [Ratio] 13.1 % Normal 11.6-14.6 [facility] Comment on above: Order Comment: Order Date: 08/01/24Order Info: 0184-1 - CBCD Performed By: #### L 502.0250, L500.4050, L500.4100, L501.9985, L100.0100 ####[facility] [address] [place], [address] Hematocrit (Bld) [Volume fraction] 38.8 % Normal 37-47 [facility] Comment on above: Order Comment: Order Date: 08/01/24Order Info: 0184-1 - CBCD Performed By: #### L 502.0250, L500.4050, L500.4100, L501.9985, L100.0100 ####[facility] [address] [place], [address] Hemoglobin (Bld) [Mass/Vol] 13.1 g/dL Normal 12.0-15.0 [facility] Comment on above: Order Comment: Order Date: 08/01/24Order Info: 0184-1 - CBCD Performed By: #### L 502.0250, L500.4050, L500.4100, L501.9985, L100.0100 ####[facility] [address] [place], [address] IG% 0.200 Normal 0.0-0.9 [facility] Comment on above: Order Comment: Order Date: 08/01/24Order Info: 0184-1 - CBCD Result Comment: IG% - Immature Granulocytes (promyelocytes, myelocytes and metamyelocytes) > 1% indicates that a LEFT SHIFT is Present. Performed By: #### L 502.0250, L500.4050, L500.4100, L501.9985, L100.0100 ####[facility] [address] [place], [address] Lymphocytes/100 WBC (Bld) 34.8 % Normal 19-41 [facility] Comment on above: Order Comment: Order Date: 08/01/24Order Info: 018- - CBCD Performed By: #### L 502.0250, L500.4050, L500.4100, L501.9985, L100.0100 ####[facility] [address] [place], [address] MCH (RBC) [Entitic mass] 31.0 pg Normal 27.0-32.0 [facility] Comment on above: Order Comment: Order Date: 08/01/24Order Info: 018- - CBCD Performed By: #### L 502.0250, L500.4050, L500.4100, L501.9985, L100.0100 ####[facility] [address] [place], [address] MCHC (RBC) [Mass/Vol] 33.8 g/dL Normal 32-36 [facility] Comment on above: Order Comment: Order Date: 08/01/24Order Info: 018- - CBCD Performed By: #### L 502.0250, L500.4050, L500.4100, L501.9985, L100.0100 ####[facility] [address] [place], [address] MCV (RBC) [Entitic vol] 91.7 fL Normal 81-99 [facility] Comment on above: Order Comment: Order Date: 08/01/24Order Info: 018-1 - CBCD Performed By: #### L 502.0250, L500.4050, L500.4100, L501.9985, L100.0100 ####[facility] [address] [place], [address] Monocytes/100 WBC (Bld) 9.0 % Normal 0-10 [facility] Comment on above: Order Comment: Order Date: 08/01/24Order Info: 0184-1 - CBCD Performed By: #### L 502.0250, L500.4050, L500.4100, L501.9985, L100.0100 ####[facility] [address] [place], [address] Neutrophils/100 WBC (Bld) 53.1 % Normal 47-70 [facility] Comment on above: Order Comment: Order Date: 08/01/24Order Info: 0184-1 - CBCD Performed By: #### L 502.0250, L500.4050, L500.4100, L501.9985, L100.0100 ####[facility] [address] [place], [address] Nucleated RBC (Bld) [#/Vol] 0 10*3/uL Normal 0-5 [facility] Comment on above: Order Comment: Order Date: 08/01/24Order Info: 018- - CBCD Performed By: #### L 502.0250, L500.4050, L500.4100, L501.9985, L100.0100 ####[facility] [address] [place], [address] Platelet mean volume (Bld) [Entitic vol] 9.4 fL Normal 6.2-12.0 [facility] Comment on above: Order Comment: Order Date: 08/01/24Order Info: 018-1 - CBCD Performed By: #### L 502.0250, L500.4050, L500.4100, L501.9985, L100.0100 ####[facility] [address] [place], [address] Platelets (Bld) [#/Vol] 295 10*3/uL Normal 150-450 [facility] Comment on above: Order Comment: Order Date: 08/01/24Order Info: 0184-1 - CBCD Performed By: #### L 502.0250, L500.4050, L500.4100, L501.9985, L100.0100 ####[facility] [address] [place], [address] RBC (Bld) [#/Vol] 4.23 10*6/uL Normal 4.2-5.4 [facility] Comment on above: Order Comment: Order Date: 08/01/24Order Info: 0184-1 - CBCD Performed By: #### L 502.0250, L500.4050, L500.4100, L501.9985, L100.0100 ####[facility] [address] [place], [address] RDW SD 43.7 fl Normal 35.1-43.9 [facility] Comment on above: Order Comment: Order Date: 08/01/24Order Info: 0184-1 - CBCD Performed By: #### L 502.0250, L500.4050, L500.4100, L501.9985, L100.0100 ####[facility] [address] [place], [address] WBC (Bld) [#/Vol] 4.4 10*3/uL Normal 4.4-11.0 [facility] Comment on above: Order Comment: Order Date: 08/01/24Order Info: 0184-1 - CBCD Performed By: #### L 502.0250, L500.4050, L500.4100, L501.9985, L100.0100 ####[facility] [address] [place], [address] Calculated very low density lipoprotein (VLDL) cholesterol measurementOrdered By: Jed Sutherland on 01-18-2025 Calculated very low density lipoprotein (VLDL) cholesterol measurement 23 mg/dL [facility] VLDL Cholesterol 23 mg/dL [facility] Carbon dioxide, total [Moles /volume] in Central venous bloodOrdered By: Jed Sutherland on 01-18-2025 CO2 [Moles/Vol] 27.3 mmol/L 21.0-32.0 [facility] Chloride assayOrdered By: Kitty Sutherland on 01-18-2025 Chloride [Moles/Vol] 98 mmol/L 98-108 [facility] Comprehensive Metabolic Prof ilon 01-18-2025 Albumin [Mass/Vol] 4.2 g/dL Normal 3.4-4.8 [facility] Comment on above: Order Comment: Order Date: 08/01/24Order Info: 0786-1 - CMPOrder Info: [id number] - LIPID Performed By: #### L 502.0250, L500.4050, L500.4100, L501.9985, L100.0100 ####[facility] [address] [place], [address] Albumin/Globulin [Mass ratio] 1.5 {ratio} Normal 0.9-2.4 [facility] Comment on above: Order Comment: Order Date: 08/01/24Order Info: 0786-1 - CMPOrder Info: [id number] - LIPID Performed By: #### L 502.0250, L500.4050, L500.4100, L501.9985, L100.0100 ####[facility] [address] [place], [address] ALK PHOS 77 U/L Normal 35-104 [facility] Comment on above: Order Comment: Order Date: 08/01/24Order Info: 0786-1 - CMPOrder Info: [id number] - LIPID Performed By: #### L 502.0250, L500.4050, L500.4100, L501.9985, L100.0100 ####[facility] [address] [place], [address] ALT [Catalytic activity/Vol] 19 U/L Normal <=34 [facility] Comment on above: Order Comment: Order Date: 08/01/24Order Info: [id number] - CMPOrder Info: [id number] - LIPID Performed By: #### L 502.0250, L500.4050, L500.4100, L501.9985, L100.0100 ####[facility] [address] [place], [address] AST [Catalytic activity/Vol] 22 U/L Normal <=31 [facility] Comment on above: Order Comment: Order Date: 08/01/24Order Info: 0786-1 - CMPOrder Info: [id number] - LIPID Performed By: #### L 502.0250, L500.4050, L500.4100, L501.9985, L100.0100 ####[facility] [address] [place], [address] Bilirubin [Mass/Vol] 0.61 mg/dL Normal 0.00-1.30 [facility] Comment on above: Order Comment: Order Date: 08/01/24Order Info: 0786 - CMPOrder Info: [id number] - LIPID Performed By: #### L 502.0250, L500.4050, L500.4100, L501.9985, L100.0100 ####[facility] [address] [place], [address] BUN/CRE 9.5 RATIO Low 10-20 [facility] Comment on above: Order Comment: Order Date: 08/01/24Order Info: 0786- - CMPOrder Info: [id number] - LIPID Performed By: #### L 502.0250, L500.4050, L500.4100, L501.9985, L100.0100 ####[facility] [address] [place], [address] Calcium [Mass/Vol] 9.1 mg/dL Normal 7.6-11.0 [facility] Comment on above: Order Comment: Order Date: 08/01/24Order Info: 0786- - CMPOrder Info: [id number] - LIPID Performed By: #### L 502.0250, L500.4050, L500.4100, L501.9985, L100.0100 ####[facility] [address] [place], [address] Chloride [Moles/Vol] 98 mmol/L Normal 98-108 [facility] Comment on above: Order Comment: Order Date: 08/01/24Order Info: 0786-1 - CMPOrder Info: [id number] - LIPID Performed By: #### L 502.0250, L500.4050, L500.4100, L501.9985, L100.0100 ####[facility] [address] [place], [address] CO2 [Moles/Vol] 27.3 mmol/L Normal 21.0-32.0 [facility] Comment on above: Order Comment: Order Date: 08/01/24Order Info: 0786-1 - CMPOrder Info: [id number] - LIPID Performed By: #### L 502.0250, L500.4050, L500.4100, L501.9985, L100.0100 ####[facility] [address] [place], [address] Creatinine [Mass/Vol] 0.55 mg/dL Low 0.70-1.20 [facility] Comment on above: Order Comment: Order Date: 08/01/24Order Info: 0786-1 - CMPOrder Info: [id number] - LIPID Performed By: #### L 502.0250, L500.4050, L500.4100, L501.9985, L100.0100 ####[facility] [address] [place], [address] GAP 11 Normal 5-15 [facility] Comment on above: Order Comment: Order Date: 08/01/24Order Info: [id number] - CMPOrder Info: [id number] - LIPID Performed By: #### L 502.0250, L500.4050, L500.4100, L501.9985, L100.0100 ####[facility] [address] [place], [address] GFR/1.73 sq M.predicted among non-blacks MDRD (S/P/Bld) [Vol rate/Area] 101 mL/min/{1.73_m2} Normal >60 [facility] Comment on above: Order Comment: Order Date: 08/01/24Order Info: 0786-1 - CMPOrder Info: [id number] - LIPID Result Comment: mL/m in/1.73m2 CKD-EPI Creatinine Equation (2020) Performed By: #### L 502.0250, L500.4050, L500.4100, L501.9985, L100.0100 ####[facility] [address] [place], [address] Globulin (S) [Mass/Vol] 2.9 g/dL Normal 2.2-4.2 [facility] Comment on above: Order Comment: Order Date: 08/01/24Order Info: 0786 - CMPOrder Info: [id number] - LIPID Performed By: #### L 502.0250, L500.4050, L500.4100, L501.9985, L100.0100 ####[facility] [address] [place], [address] Glucose [Mass/Vol] 134 mg/dL High 70-99 [facility] Comment on above: Order Comment: Order Date: 08/01/24Order Info: 0786- - CMPOrder Info: [id number] - LIPID Performed By: #### L 502.0250, L500.4050, L500.4100, L501.9985, L100.0100 ####[facility] [address] [place], [address] Potassium [Moles/Vol] 3.7 mmol/L Normal 3.3-5.1 [facility] Comment on above: Order Comment: Order Date: 08/01/24Order Info: 0786- - CMPOrder Info: [id number] - LIPID Performed By: #### L 502.0250, L500.4050, L500.4100, L501.9985, L100.0100 ####[facility] [address] [place], [address] Sodium [Moles/Vol] 136 mmol/L Normal 133-145 [facility] Comment on above: Order Comment: Order Date: 08/01/24Order Info: [id number] - CMPOrder Info: [id number] - LIPID Performed By: #### L 502.0250, L500.4050, L500.4100, L501.9985, L100.0100 ####[facility] [address] [place], [address] T PROT 7.0 g/dL Normal 5.9-8.4 [facility] Comment on above: Order Comment: Order Date: 08/01/24Order Info: [id number] - CMPOrder Info: [id number] - LIPID Performed By: #### L 502.0250, L500.4050, L500.4100, L501.9985, L100.0100 ####[facility] [address] [place], [address] Urea nitrogen [Mass/Vol] 5 mg/dL Normal 4-19 [facility] Comment on above: Order Comment: Order Date: 08/01/24Order Info: [id number] - CMPOrder Info: [id number] - LIPID Performed By: #### L 502.0250, L500.4050, L500.4100, L501.9985, L100.0100 ####[facility] [address] [place], [address] Creatinine Unsp time (U) [Ma ss/Vol]Ordered By: Jed Sutherland on 01-18-2025 Creatinine (U) [Mass/Vol] 141.00 mg/dL 28.00-217.00 [facility] Eosinophil percentageOrdered By: eJd Sutherland on 01-18-2025 Eosinophils/100 WBC (Bld) 1.8 % 0-5 [facility] Epithelial cells.squamous LM Ql (Urine sed)Ordered By: Jed Sutherland on 01-18-2025 Epithelial cells.squamous LM.HPF (Urine sed) [#/Area] 0 /[HPF] 5-10 [facility] Erythrocyte distribution wid th (RBC) [Ratio]Ordered By: Jed Sutherland on 01-18-2025 Erythrocyte distribution width (RBC) [Entitic vol] 43.7 fL 35.1-43.9 [facility] Erythrocyte distribution wid th ratioOrdered By: Jed Sutherland on 01-18-2025 Erythrocyte distribution width (RBC) [Ratio] 13.1 % 11.6-14.6 [facility] Erythrocyte distribution wid th standard deviationOrdered By: Jed Sutherland on 01-18-2025 Erythrocyte distribution width (RBC) [Ratio] 43.7 fl 35.1-43.9 [facility] GFR/1.73 sq M.predicted hyun g non-blacks MDRD (S/P/Bld) [Vol rate/Area]Ordered By: Jed Sutherland on 01-18-2025 Estimated GFR (MDRD) Non-Af Amer 101 >60 [facility] Comment on above: mL/min/1.73m2 CKD-EP I Creatinine Equation (2020) Glomerular filtration rate ( GFR) estimation/1.73 sq m using serum, plasma, or whole bOrdered By: Jed Sutherland on 01-18-2025 GFR/1.73 sq M.predicted among non-blacks MDRD (S/P/Bld) [Vol rate/Area] 101 mL/min/{1.73_m2} >60 [facility] Comment on above: mL/min/1.73m2 CKD-EP I Creatinine Equation (2020) Glucose Ql (U)Ordered By: Kitty Sutherland on 01-18-2025 Urine Glucose (UA) Normal mg/dl Normal [facility] Hematocrit Auto (Bld) [Volum e fraction]Ordered By: Jed Sutherland on 01-18-2025 Hematocrit (Bld) [Volume fraction] 38.8 % 37-47 [facility] Hemoglobin A1con 01-18-2025 HbA1c (Bld) [Mass fraction] 6.6 % High <=5.6 [facility] Comment on above: Order Comment: Order Date: 08/01/24Order Info: [id number] - A1C Result Comment: Norm al < 5.7 % Prediabetic 5.7 - 6.4 % Diabetic >or= 6.5 % Please note range changes. Performed By: #### L 502.0250, L500.4050, L500.4100, L501.9985, L100.0100 ####[facility] [address] [place], [address] Hemoglobin A1c percentageOrd ered By: Jed Sutherland on 01-18-2025 HbA1c (Bld) [Mass fraction] 6.6 % High <5.7 [facility] Comment on above: Normal < 5.7 % Predi abetic 5.7 - 6.4 % Diabetic >or= 6.5 % Please note range changes. Hemoglobin measurementOrdere d By: Jed Sutherland on 01-18-2025 Hemoglobin (Bld) [Mass/Vol] 13.1 g/dL 12.0-15.0 [facility] Immature granulocytes/100 WB C Auto (Bld)Ordered By: Jed Sutherland on 01-18-2025 Immature granulocytes/100 WBC (Bld) 0.200 % 0.0-0.9 [facility] Comment on above: IG% - Immature Granu locytes (promyelocytes, myelocytes and metamyelocytes) > 1% indicates that a LEFT SHIFT is Present. Ketones Test strip Ql (U)Ord ered By: Jed Sutherland on 01-18-2025 Ketones Ql (U) Negative Negative [facility] LDL calc ser/plasOrdered By: Jed Sutherland on 01-18-2025 Cholesterol in LDL [Mass/Vol] 68 mg/dL [facility] Comment on above: Enagsoqylj=817-006 m g/dL & Higher Enaf=738 mg/dL or greater LDL Cholesterol, Calculated 68 mg/dL [facility] Comment on above: Qobmndffqo=632-905 m g/dL & Higher Issp=028 mg/dL or greater Laboratory - Chemistry and C hemistry - challengeOrdered By: Jed Sutherland on 01-18-2025 AST [Catalytic activity/Vol] 22 U/L <32 [facility] Lipid Profileon 01-18-2025 CHOL:HDL 3.07 Normal [facility] Comment on above: Order Comment: Order Date: 08/01/24Order Info: [id number] - CMPOrder Info: [id number] - LIPID Performed By: #### L 502.0250, L500.4050, L500.4100, L501.9985, L100.0100 ####[facility] [address] [place], [address] Cholesterol [Mass/Vol] 135 mg/dL Normal <=200 [facility] Comment on above: Order Comment: Order Date: 08/01/24Order Info: [id number] - CMPOrder Info: [id number] - LIPID Result Comment: Chol esterol level, Desirable <200 mg/dL Borderline high cholesterol 200-239 mg/dL High cholesterol >=240 mg/dL Recommendations of the NCEP Adult Treatment Panel for the following risk-cutoff thresholds for the [place] population. Performed By: #### L 502.0250, L500.4050, L500.4100, L501.9985, L100.0100 ####[facility] [address] [place], [address] Cholesterol in HDL [Mass/Vol] 44 mg/dL Normal [facility] Comment on above: Order Comment: Order Date: 08/01/24Order Info: [id number] - CMPOrder Info: [id number] - LIPID Result Comment: Muriel onal Cholesterol Education Program (NCEP) guidelines: <40 mg/dL: Low HDL-cholesterol (major risk factor for CHD) >= 60 mg/dL: High HDL-cholesterol (negative risk factor for CHD) HDL-cholesterol is affected by a number of factors, e.g. smoking, exercise, hormones, sex and age. Performed By: #### L 502.0250, L500.4050, L500.4100, L501.9985, L100.0100 ####[facility] [address] [place], [address] Cholesterol in LDL [Mass/Vol] 68 mg/dL Normal [facility] Comment on above: Order Comment: Order Date: 08/01/24Order Info: [id number] - CMPOrder Info: [id number] - LIPID Result Comment: Bord dqbjnn=825-019 mg/dL Higher Wudo=043 mg/dL or greater Performed By: #### L 502.0250, L500.4050, L500.4100, L501.9985, L100.0100 ####[facility] [address] [place], [address] Cholesterol in VLDL [Mass/Vol] 23 mg/dL Normal 5-40 [facility] Comment on above: Order Comment: Order Date: 08/01/24Order Info: [id number] - CMPOrder Info: [id number] - LIPID Performed By: #### L 502.0250, L500.4050, L500.4100, L501.9985, L100.0100 ####[facility] [address] [place], [address] Triglyceride [Mass/Vol] 117 mg/dL Normal [facility] Comment on above: Order Comment: Order Date: 08/01/24Order Info: [id number] - CMPOrder Info: [id number] - LIPID Result Comment: The drugs N-Acetylcysteine and Metamizole may falsely depress this assay. Normal range: <150 mg/dL Borderline High: 150-199 mg/dL High: 200-499 mg/dL Very High: >500 mg/dL Performed By: #### L 502.0250, L500.4050, L500.4100, L501.9985, L100.0100 ####[facility] [address] [place], [address] Lymphocytes Auto (Unsp spec) [#/Vol]Ordered By: Jed Sutherland on 01-18-2025 Lymphocytes (Bld) [#/Vol] 1.54 10*3/uL 0.83-4.51 [facility] Lymphocytes/100 WBC Auto (Un sp spec)Ordered By: Jed Sutherland on 01-18-2025 Lymphocytes/100 WBC (Bld) 34.8 % 19-41 [facility] MCV (mean corpuscular volume ) determinationOrdered By: Jed Sutherland on 01-18-2025 MCV (RBC) [Entitic vol] 91.7 fL 81-99 [facility] Mean corpuscular hemoglobin (MCH) determinationOrdered By: Jed Sutherland on 01-18-2025 MCH (RBC) [Entitic mass] 31.0 pg 27.0-32.0 [facility] Mean corpuscular hemoglobin concentration (MCHC) determinationOrdered By: Jed Sutherland on 01-18-2025 MCHC (RBC) [Mass/Vol] 33.8 g/dL 32-36 [facility] Mean platelet volume determi nationOrdered By: Jed Sutherland on 01-18-2025 Platelet mean volume (Bld) [Entitic vol] 9.4 fL 6.2-12.0 [facility] Microalbumin/creat ratio urO rdered By: Jed Sutherland on 01-18-2025 Urine Microalbumin/Creatinine Ratio 168.8 mg/g CRE [facility] Microscopic analysis of urin e for red blood cells (RBC)Ordered By: Jed Sutherland on 01-18-2025 Microscopic analysis of urine for red blood cells (RBC) 0 SEEN /hpf 0-5 [facility] Urine RBC 0 SEEN /hpf 0-5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 [id number] - CMP Order Info: [id number] - LIPID Performed By: #### L 506.1000, L501.9985, L500.4100, L500.4050, L502.0250, L100.0100 #### [facility] [address] [place], [place], [phone] Urea nitrogen [Mass/Vol] 10 mg/dL Normal 7-18 [facility] Comment on above: Order Comment: Order Date: 01/25/24 Order Info: [id number] - CMP Order Info: [id number] - LIPID Performed By: #### L 506.1000, L501.9985, L500.4100, L500.4050, L502.0250, L100.0100 #### [facility] [address] [place], [place], [address] Hemoglobin A1con 07-23-2024 HbA1c (Bld) [Mass fraction] 6.2 % High 3.8-5.6 [facility] Comment on above: Order Comment: Order Date: 01/25/24Order Info: [id number] - A1C Result Comment: Norm al < 5.7 % Prediabetic 5.7 - 6.4 % Diabetic >or= 6.5 % Please note range changes. Performed By: #### L 506.1000, L501.9985, L500.4100, L500.4050, L502.0250, L100.0100 ####[facility] [address] [place], [address] Lipid Profileon 07-23-2024 Cholesterol [Mass/Vol] 143 mg/dL Normal 200 [facility] Comment on above: Order Comment: Order Date: 01/25/24 Order Info: [id number] - CMP Order Info: [id number] - LIPID Result Comment: <200 mg/dL Desirable 200-240 mg/dL Borderline >240 mg/dL High Risk Performed By: #### L 506.1000, L501.9985, L500.4100, L500.4050, L502.0250, L100.0100 #### [facility] [address] [place], [address] Cholesterol in HDL [Mass/Vol] 44 mg/dL Normal [facility] Comment on above: Order Comment: Order Date: 01/25/24 Order Info: [id number] - CMP Order Info: [id number] - LIPID Result Comment: The drugs N-Acetylcysteine and Metamizole may falsely depress this assay. Reference Range HDL <40 mg/dL Low HDL Cholesterol HDL >or= 60 mg/dL High HDL Cholesterol Performed By: #### L 506.1000, L501.9985, L500.4100, L500.4050, L502.0250, L100.0100 #### [facility] [address] [place], [address] Cholesterol in LDL [Mass/Vol] 71 mg/dL Normal 0-130 [facility] Comment on above: Order Comment: Order Date: 01/25/24 Order Info: [id number] - CMP Order Info: [id number] - LIPID Performed By: #### L 506.1000, L501.9985, L500.4100, L500.4050, L502.0250, L100.0100 #### [facility] [address] [place], [address] Cholesterol in VLDL [Mass/Vol] 28 mg/dL Normal 5-40 [facility] Comment on above: Order Comment: Order Date: 01/25/24 Order Info: [id number] - CMP Order Info: [id number] - LIPID Performed By: #### L 506.1000, L501.9985, L500.4100, L500.4050, L502.0250, L100.0100 #### [facility] [address] [place], [address] Triglyceride [Mass/Vol] 139 mg/dL Normal [facility] Comment on above: Order Comment: Order Date: 01/25/24 Order Info: [id number] - CMP Order Info: [id number] - LIPID Result Comment: The drugs N-Acetylcysteine and Metamizole may falsely depress this assay. Serum Triglycerides Reference Interval Normal <150 mg/dL Borderline high 150 - 199 mg/dL High 200 - 499 mg/dL Very High > or = 500 mg/dL Performed By: #### L 506.1000, L501.9985, L500.4100, L500.4050, L502.0250, L100.0100 #### [facility] [address] [place], [place], [phone] Microalb:Creat Ratio,Random URon 07-23-2024 Creatinine [Mass/Vol] 164.00 mg/dL Normal NO RAN GE EST. [facility] Comment on above: Order Comment: Order Date: 01/25/24 Order Info: [id number] - MIACRE Performed By: #### L 506.1000, L501.9985, L500.4100, L500.4050, L502.0250, L100.0100 #### [facility] [address] [place], [place], [id number] MALB:CRE 5.7 mg/g CRE Normal <30 mg/g CRE [facility] Comment on above: Order Comment: Order Date: 01/25/24 Order Info: [id number] - MIACRE Performed By: #### L 506.1000, L501.9985, L500.4100, L500.4050, L502.0250, L100.0100 #### [facility] [address] [place], [place], [id number] MICROALBUMIN,UR 9.3 mg/L Normal NO RANGE EST. [facility] Comment on above: Order Comment: Order Date: 01/25/24 Order Info: [id number] - MIACRE Performed By: #### L 506.1000, L501.9985, L500.4100, L500.4050, L502.0250, L100.0100 #### [facility] [address] [place], [address] Urinalysis, Completeon 07-23 EPI,SQUAMOUS 0-5 SEEN Normal 5-10 [facility] Comment on above: Order Comment: CLEAN CATCH Performed By: #### L 400.0001 ####[facility] [address] [place], [address] WBC 0-5 SEEN Normal 0-5 [facility] Comment on above: Order Comment: CLEAN CATCH Performed By: #### L 400.0001 ####[facility] [address] [place], [address] BACTERIA 0 SEEN Normal None Seen [facility] Comment on above: Order Comment: CLEAN CATCH Performed By: #### L 400.0001 ####[facility] [address] [place], [address] Mucus Ql (Urine sed) 0 SEEN Normal [facility] Comment on above: Order Comment: CLEAN CATCH Performed By: #### L 400.0001 ####[facility] [address] [place], [address] RBC 0 SEEN Normal 0-5 [facility] Comment on above: Order Comment: CLEAN CATCH Performed By: #### L 400.0001 ####[facility] [address] [place], [address] Vitamin D,25 Hydroxyon 07-23 Vitamin D 25-OH 53.0 ng/mL Normal [facility] Comment on above: Order Comment: Order Date: 01/25/24 Order Info: [id number] - VITD25 Result Comment: Obdulia min D 25(OH) Status Range Deficiency <20 ng/mL (50nmol/L) Insufficiency 20 - 30 ng/mL (50 - 75 nmol/L) Sufficiency 30 - 100 ng/mL (75 - 250 nmol/L) Toxicity >100 ng/mL (>250 nmol/L) Performed By: #### L 506.1000, L501.9985, L500.4100, L500.4050, L502.0250, L100.0100 #### [facility] [address] [place], [address] Kidney and Bladderon 024 Kidney and Bladder [facility] [address] [place] [address] Kidney and Bladder MR#: [id number] Acct: [id number] Name: BEL LAZO Rep #: [id number] : 1960 F 64 From: Edilson Sarmiento MD PCP: Dr. Jed Sutherland MD Status: REG CLI Study: Kidney and Bladder Date of Exam: 06/22/24 Exam# [id number] Ordering Dr: Demetra Girard [place] [id number] STUDY: RENAL ULTRASOUND - COMPLETE REASON FOR EXAM: Female, 64 years old. UTI TECHNIQUE: Ultrasound evaluation of the kidneys was performed with real-time and static hester-scale imaging. COMPARISON: None. FINDINGS: RIGHT KIDNEY: Normal location of the right kidney, which is normal in size. The right kidney measures 12.9 cm. There is a normal cortex of the right kidney. The renal cortex measures 1.6 cm. There is no right renal mass or cyst. There are no right renal calculi. There is no right hydronephrosis. DISTAL RIGHT URETER: There is non-visualization of the distal right ureter. There is no demonstrated right ureterovesical junction calculus. There is a visualized right ureteral jet. LEFT KIDNEY: Normal location of the left kidney, which is normal in size. The left kidney measures 11.2 cm. There is a normal cortex of the left kidney. The renal cortex measures 2.3 cm. There is no left renal mass or cyst. There are no left renal calculi. There is no left hydronephrosis. DISTAL LEFT URETER: There is non-visualization of the distal left ureter. There is no demonstrated left ureterovesical junction calculus. There is a visualized left ureteral jet. BLADDER: The distended urinary bladder has a volume of 121 ml. The empty urinary bladder has a volume of ml. There is a normal wall thickness of the distended urinary bladder. There is no demonstrated mass within the urinary bladder. There are no demonstrated bladder calculi. US/Kidney and Bladder IMPRESSION: Normal ultrasound of the kidneys and urinary bladder. Electronically Signed: Edilson Sarmiento MD at 17:57 EDT , CC: Dr. Demetra Girard MD; Dr. Jed Sutherland MD General Labor: Signed Normal [facility] Stress Reporton 06-18-2024 Stress Report [facility] [address] [place] [address] MR#: [id number] Acct: [id number] Name: BEL LAZO Rep #: [id number] : 1960 64 From: Mata Fontaine MD Primary Care: Dr. Jed Sutherland MD Status: REG CLI Referring Dr: Patty Hernandez ANAESTHESIOLOGIST ANAESTHESIOLOGIST-C Sex: F C Stress Test Report Pharmacologic myocardial perfusion stress test. 64-year-old lady with a history of chest pain Resting EKG demonstrates sinus bradycardia with a rate of 58 bpm. Resting blood pressure is 164/88 mmHg. 0.4 mg of regadenoson was infused per usual protocol followed by rapid intravenous saline flush injection. Continuous EKG monitoring was performed. The maximum heart rate was 98 bpm which was 63% of max impacted heart rate the maximum workload was 1 metabolic equivalent. At rest there were no ST or T wave changes noted to suggest ischemia and at peak infusion nonspecific ST changes were noted which did not meet the criteria for ischemia. No clinical angina is noted. The final blood pressure was 124/84 mmHg. Myocardial perfusion protocol. 11.5 mCi of technetium 99m sestamibi was injected at rest. 0.4 mg of regadenoson was infused per usual protocol. At peak infusion 34.2 mCi of technetium 99m sestamibi was injected stress images were obtained stress and rest images were reconstructed and compared in the short axis vertical long and horizontal long axis. Gated images were also obtained. Perfusion SPECT analysis: Review of the stress images demonstrate normal uptake of tracer noted in all areas of the myocardium. The resting images similar demonstrated normal uptake of tracer noted in all areas of the myocardium. No areas of reversibility are noted to suggest ischemia and no previous infarct is noted. Gated SPECT analysis: The gated ejection fraction is 77%. Conclusion: Normal pharmacologic myocardial perfusion stress test. Preserved ejection fraction. 06/18/24726 Date Mata Fontaine MD CC: SUSAN Hernandez; Dr. Jed Sutherland MD Date Dictated: 06/18/24725 Date Transcribed: 06/18/24725 General Labor: CO Signed Normal [facility] Absolute lymphocyte countOrd ered By: Jed Sutherland on 01-18-2024 Lymphocytes Auto (Unsp spec) [#/Vol] 1.50 10*3/uL 0.83-4.51 [facility] Automated lymphocyte count a s percentage of total leukocytesOrdered By: Jed Sutherland on 01-18-2024 Lymphocytes/100 WBC Auto (Unsp spec) 34.6 % 19-41 [facility] Basophil percentageOrdered B y: Jed Sutherland on 01-18-2024 Basophils/100 WBC (Bld) 1.2 % 0-1 [facility] Bilirubin [Mass/Vol] 0.90 mg/dL 0.20-1.00 [facility] Comment on above: For patients on eltr ombopag therapy, use of Dimension [place] TBIL is not recommended. Chloride [Moles/Vol] 104 mmol/L 98-107 [facility] Cholesterol [Mass/Vol] 156 mg/dL <200 [facility] Comment on above: <200 mg/dL Desirable 200-240 mg/dL Borderline >240 mg/dL High Risk Eosinophils/100 WBC (Bld) 1.4 % 0-5 [facility] Glucose [Mass/Vol] 116 mg/dL 74-106 [facility] Comment on above: Fasting Glucose resu lt from 100 to 125 mg/dL suggests IMPAIRED HOMEOSTASIS per A.D.A. criteria. Hemoglobin (Bld) [Mass/Vol] 13.8 g/dL 12.0-15.0 [facility] Monocytes/100 WBC (Bld) 8.8 % 0-10 [facility] Neutrophils (Bld) [#/Vol] 2.3 10*3/uL 2.0-7.7 [facility] Neutrophils/100 WBC (Bld) 54.0 % 47-70 [facility] Potassium [Moles/Vol] 3.9 mmol/L 3.5-5.1 [facility] Protein [Mass/Vol] 7.5 g/dL 6.4-8.2 [facility] Sodium [Moles/Vol] 138 mmol/L 136-145 [facility] Triglyceride [Mass/Vol] 152 mg/dL <199 [facility] Comment on above: The drugs N-Acetylcy steine and Metamizole may falsely depress this assay.Serum Triglycerides Reference Interval Normal <150 mg/dL Borderline high 150 - 199 mg/dL High 200 - 499 mg/dL Very High > or = 500 mg/dL WBC (Bld) [#/Vol] 4.3 10*3/uL 4.4-11.0 [facility] Determination of erythrocyte mean corpuscular volume (MCV)Ordered By: Jed Sutherland on 01-18-2024 MCV (RBC) [Entitic vol] 93.4 fL 81-99 [facility] Erythrocyte distribution wid th ratioOrdered By: Jed Sutherland on 01-18-2024 Erythrocyte distribution width (RBC) [Ratio] 13.0 % 11.6-14.6 [facility] Erythrocyte distribution wid th standard deviationOrdered By: Jed Sutherland on 01-18-2024 Erythrocyte distribution width (RBC) [Entitic vol] 44.6 fL 35.1-43.9 [facility] Hematocrit Auto (Bld) [Volum e fraction]Ordered By: Jed Sutherland on 01-18-2024 Hematocrit (Bld) [Volume fraction] 41.2 % 37-47 [facility] Immature granulocytes/100 WB C Auto (Bld)Ordered By: Jed Sutherland on 01-18-2024 Immature granulocytes/100 WBC (Bld) 0.000 % 0.0-0.9 [facility] Comment on above: IG% - Immature Granu locytes (promyelocytes, myelocytes and metamyelocytes) > 1% indicates that a LEFT SHIFT is Present. Laboratory - Chemistry and C hemistry - challengeOrdered By: Jed Sutherland on 01-18-2024 Albumin/Globulin [Mass ratio] 1.0 {ratio} 0.9-2.4 [facility] ALP [Catalytic activity/Vol] 66 U/L 45-117 [facility] ALT [Catalytic activity/Vol] 26 U/L 13-56 [facility] Cholesterol in HDL [Mass/Vol] 49 mg/dL >40 [facility] Comment on above: The drugs N-Acetylcy steine and Metamizole may falsely depress this assay. Reference Range HDL <40 mg/dL Low HDL Cholesterol HDL >or= 60 mg/dL High HDL Cholesterol Cholesterol in LDL [Mass/Vol] 77 mg/dL 0-130 [facility] CO2 [Moles/Vol] 30.0 mmol/L 21.0-32.0 [facility] Globulin (S) [Mass/Vol] 3.7 g/dL 2.2-4.2 [facility] Urea nitrogen/Creatinine [Mass ratio] 17.4 mg/mg 10-20 [facility] Laboratory - Hematology and Cell countsOrdered By: Jed Sutherland on 01-18-2024 MCH (RBC) [Entitic mass] 31.3 pg 27.0-32.0 [facility] MCHC (RBC) [Mass/Vol] 33.5 g/dL 32-36 [facility] Nucleated RBC/100 WBC (Bld) [Ratio] 0 % 0-5 [facility] Platelet mean volume (Bld) [Entitic vol] 9.2 fL 6.2-12.0 [facility] Platelets (Bld) [#/Vol] 321 10*3/uL 150-450 [facility] No Panel InformationOrdered By: Jed Sutherland on 01-18-2024 Estimated GFR (MDRD) Amer 121 mL/min >60 [facility] Comment on above: GFR Calc Estimated GFR (MDRD) Non-Af Amer 100 mL/min >60 [facility] Comment on above: Non- GFR Calc Vitamin D 25-Hydroxy 63.7 ng/mL [facility] Comment on above: Vitamin D 25(OH) Sta tus Range Deficiency <20 ng/mL (50nmol/L) Insufficiency 20 - 30 ng/mL (50 - 75 nmol/L) Sufficiency 30 - 100 ng/mL (75 - 250 nmol/L) Toxicity >100 ng/mL (>250 nmol/L) VLDL Cholesterol 30 mg/dL 5-40 [facility] RBC Auto (Bld) [#/Vol]Ordere d By: Jed Sutherland on 01-18-2024 RBC (Bld) [#/Vol] 4.41 10*6/uL 4.2-5.4 [facility] Serum or plasma calcium wilson urement (mass/volume)Ordered By: Jed Sutherland on 01-18-2024 Calcium [Mass/Vol] 9.3 mg/dL 8.5-10.1 [facility] Serum or plasma creatinine m easurement (mass/volume)Ordered By: Jed Sutherland on 01-18-2024 Creatinine [Mass/Vol] 0.63 mg/dL 0.55-1.02 [facility] Comment on above: The validity of the calculated GFR & GFRAA in patients over 70 years has not been determined. Clinical correlation is essential. Serum or plasma urea nitroge n measurement (mass/volume)Ordered By: Jed Sutherland on 01-18-2024 Urea nitrogen [Mass/Vol] 11 mg/dL 7-18 [facility] Thin prep Papanicolaou smear with manual screeningOrdered By: Jed Sutherland on 01-18-2024 Thin prep Papanicolaou smear with manual screening 3.8 g/dL 3.2-5.0 [facility] Thin prep Papanicolaou smear with manual screening 22 U/L 15-37 [facility] Thin prep Papanicolaou smear with manual screening 4 5-15 [facility] Thin prep Papanicolaou smear with manual screening 17.0 mg/L NO RANGE EST. [facility] Whole blood hemoglobin A1c/t otal hemoglobin ratio (mass fraction)Ordered By: Jed Sutherland on 01-18-2024 HbA1c (Bld) [Mass fraction] 6.0 % 3.8-5.6 [facility] Comment on above: Normal < 5.7 % Predi abetic 5.7 - 6.4 % Diabetic >or= 6.5 % Please note range changes. Absolute lymphocyte countOrd ered By: Jed Sutherland on 07-20-2023 Lymphocytes Auto (Unsp spec) [#/Vol] 1.45 10*3/uL 0.83-4.51 [facility] Basophil percentageOrdered B y: Jed Sutherland on 07-20-2023 Basophils/100 WBC (Bld) 1.0 % 0-1 [facility] Bilirubin [Mass/Vol] 0.70 mg/dL 0.20-1.00 [facility] Comment on above: For patients on eltr ombopag therapy, use of Dimension [place] TBIL is not recommended. Chloride [Moles/Vol] 103 mmol/L 98-107 [facility] Cholesterol [Mass/Vol] 149 mg/dL <200 [facility] Comment on above: <200 mg/dL Desirable 200-240 mg/dL Borderline >240 mg/dL High Risk Eosinophils/100 WBC (Bld) 1.9 % 0-5 [facility] Glucose [Mass/Vol] 123 mg/dL 74-106 [facility] Comment on above: Fasting Glucose resu lt from 100 to 125 mg/dL suggests IMPAIRED HOMEOSTASIS per A.D.A. criteria. Neutrophils (Bld) [#/Vol] 2.2 10*3/uL 2.0-7.7 [facility] Neutrophils/100 WBC (Bld) 53.4 % 47-70 [facility] Potassium [Moles/Vol] 3.7 mmol/L 3.5-5.1 [facility] Protein [Mass/Vol] 7.2 g/dL 6.4-8.2 [facility] Sodium [Moles/Vol] 139 mmol/L 136-145 [facility] Triglyceride [Mass/Vol] 156 mg/dL <199 [facility] Comment on above: The drugs N-Acetylcy steine and Metamizole may falsely depress this assay.Serum Triglycerides Reference Interval Normal <150 mg/dL Borderline high 150 - 199 mg/dL High 200 - 499 mg/dL Very High > or = 500 mg/dL WBC (Bld) [#/Vol] 4.2 10*3/uL 4.4-11.0 [facility] Blood erythrocytes count (nu mber/volume)Ordered By: Jed Sutherland on 07-20-2023 RBC (Bld) [#/Vol] 4.30 10*6/uL 4.2-5.4 [facility] Blood hemoglobin measurement (mass/volume)Ordered By: Jed Sutherland on 07-20-2023 Hemoglobin (Bld) [Mass/Vol] 13.1 g/dL 12.0-15.0 [facility] Blood lymphocytes/100 leukoc ytesOrdered By: Jed Sutherland on 07-20-2023 Lymphocytes/100 WBC (Bld) 34.6 % 19-41 [facility] Blood monocytes/100 leukocyt esOrdered By: Jed Sutherland on 07-20-2023 Monocytes/100 WBC (Bld) 8.6 % 0-10 [facility] Blood platelet mean volumeOr dered By: Jed Sutherland on 07-20-2023 Platelet mean volume (Bld) [Entitic vol] 9.3 fL 6.2-12.0 [facility] Determination of erythrocyte mean corpuscular volume (MCV)Ordered By: Jed Sutherland on 07-20-2023 MCV (RBC) [Entitic vol] 92.8 fL 81-99 [facility] Hematocrit Auto (Bld) [Volum e fraction]Ordered By: Jed Sutherland on 07-20-2023 Hematocrit (Bld) [Volume fraction] 39.9 % 37-47 [facility] Laboratory - Chemistry and C hemistry - challengeOrdered By: Jed Sutherland on 07-20-2023 ALP [Catalytic activity/Vol] 72 U/L 45-117 [facility] ALT [Catalytic activity/Vol] 22 U/L 13-56 [facility] CO2 [Moles/Vol] 31.0 mmol/L 21.0-32.0 [facility] Globulin (S) [Mass/Vol] 3.4 g/dL 2.2-4.2 [facility] Urea nitrogen/Creatinine [Mass ratio] 14.5 mg/mg 10-20 [facility] Laboratory - Hematology and Cell countsOrdered By: Jed Sutherland on 07-20-2023 Erythrocyte distribution width (RBC) [Entitic vol] 43.6 fL 35.1-43.9 [facility] Erythrocyte distribution width (RBC) [Ratio] 12.8 % 11.6-14.6 [facility] Immature granulocytes/100 WBC (Bld) 0.500 % 0.0-0.9 [facility] Comment on above: IG% - Immature Granu locytes (promyelocytes, myelocytes and metamyelocytes) > 1% indicates that a LEFT SHIFT is Present. MCH (RBC) [Entitic mass] 30.5 pg 27.0-32.0 [facility] Nucleated RBC/100 WBC (Bld) [Ratio] 0 % 0-5 [facility] MCHC Auto (RBC) [Mass/Vol]Or dered By: Jed Sutherland on 07-20-2023 MCHC (RBC) [Mass/Vol] 32.8 g/dL 32-36 [facility] No Panel InformationOrdered By: Jed Sutherland on 07-20-2023 Estimated GFR (MDRD) Amer 143 mL/min >60 [facility] Comment on above: GFR Calc Estimated GFR (MDRD) Non-Af Amer 118 mL/min >60 [facility] Comment on above: Non- GFR Calc Urine Microalbumin/Creatinine Ratio 6.7 mg/g CRE <30 [facility] Vitamin D 25-Hydroxy 64.2 ng/mL [facility] Comment on above: Vitamin D 25(OH) Sta tus Range Deficiency <20 ng/mL (50nmol/L) Insufficiency 20 - 30 ng/mL (50 - 75 nmol/L) Sufficiency 30 - 100 ng/mL (75 - 250 nmol/L) Toxicity >100 ng/mL (>250 nmol/L) Platelets bldOrdered By: Brooks Sutherland on 07-20-2023 Platelets (Bld) [#/Vol] 296 10*3/uL 150-450 [facility] Serum or plasma albumin wilson urement (mass/volume)Ordered By: Jed Sutherland on 07-20-2023 Albumin [Mass/Vol] 3.8 g/dL 3.2-5.0 [facility] Serum or plasma albumin/glob ulin mass ratioOrdered By: Jed Sutherland on 07-20-2023 Albumin/Globulin [Mass ratio] 1.1 {ratio} 0.9-2.4 [facility] Serum or plasma calcium wilson urement (mass/volume)Ordered By: Jed Sutherland on 07-20-2023 Calcium [Mass/Vol] 8.9 mg/dL 8.5-10.1 [facility] Serum or plasma cholesterol in HDL measurement (mass/volume)Ordered By: Jed Sutherland on 07-20-2023 Cholesterol in HDL [Mass/Vol] 49 mg/dL >40 [facility] Comment on above: The drugs N-Acetylcy steine and Metamizole may falsely depress this assay. Reference Range HDL <40 mg/dL Low HDL Cholesterol HDL >or= 60 mg/dL High HDL Cholesterol Serum or plasma cholesterol in VLDL measurement (mass/volume)Ordered By: Jed Sutherland on 07-20-2023 Cholesterol in VLDL [Mass/Vol] 31 mg/dL 5-40 [facility] Serum or plasma creatinine m easurement (mass/volume)Ordered By: Jed Sutherland on 07-20-2023 Creatinine [Mass/Vol] 0.55 mg/dL 0.55-1.02 [facility] Comment on above: The validity of the calculated GFR & GFRAA in patients over 70 years has not been determined. Clinical correlation is essential. Serum or plasma low density lipoprotein (LDL) cholesterol measurement (mass/volume)Ordered By: Jed Sutherland on 07-20-2023 Cholesterol in LDL [Mass/Vol] 69 mg/dL 0-130 [facility] Serum or plasma urea nitroge n measurement (mass/volume)Ordered By: Jed Sutherland on 07-20-2023 Urea nitrogen [Mass/Vol] 8 mg/dL 7-18 [facility] Thin prep Papanicolaou smear with manual screeningOrdered By: Jed Sutherland on 07-20-2023 Thin prep Papanicolaou smear with manual screening 18 U/L 15-37 [facility] Thin prep Papanicolaou smear with manual screening 5 5-15 [facility] Thin prep Papanicolaou smear with manual screening 7.1 mg/L NO RANGE EST. [facility] Urine creatinine measurement (mass/volume)Ordered By: Jed Sutherland on 07-20-2023 Creatinine (U) [Mass/Vol] 106.00 mg/dL NO RANGE EST. [facility] Whole blood hemoglobin A1c/t otal hemoglobin ratio (mass fraction)Ordered By: Jed Sutherland on 07-20-2023 HbA1c (Bld) [Mass fraction] 6.0 % 3.8-5.6 [facility] Comment on above: Normal < 5.7 % Predi abetic 5.7 - 6.4 % Diabetic >or= 6.5 % Please note range changes. Basophil percentageOrdered B y: Patty Hernandez on 03-23-2023 Basophil percentage < 0.9 mg/dL 0.55-1.02 [facility] No Panel InformationOrdered By: Patty Hernandez on 03-23-2023 Bedside Estimated GFR (eGFR) > 60.0000 mL/min >60 [facility] Cervical or vagninal specime n microscopic examination by cytology stain (reported asOrdered By: Dr. Martin on 02-24-2023 Cytology report Cyto stain Doc (Cvx/Vag) Comment . [facility] Comment on above: The Pap smear is a s creening test designed to aid in thedetection of premalignant and malignant conditions of theuterine cervix. It is not a diagnostic procedure andshould not be used as the sole means of detecting cervicalcancer. Both false-positive and false-negative reports dooccur. Detection in cervical specim en of any of human papilloma virus (HPV) 16, 18, 31, 33,Ordered By: Dr. Martin on 02-24-2023 HPV 16+18+31+33+35+39+45+51+ 52+56+58+59+66+68 DNA Probe+sig amp Ql (Cvx) Negative Negative [facility] Comment on above: This nucleic acid am plification test detects fourteen high-risk HPV types (16,18,31,33,35,39,45,51,52,56,58,59,66,68)without differentiation. Laboratory - CytologyOrdered By: Dr. Martin on 02-24-2023 Line Driver Cyto stain Nom (Cvx/Vag) [ID] Comment . [facility] Comment on above: Crissy Manzo, Cyto technologist (ASCP) Laboratory - Miscellaneous t estsOrdered By: Dr. Martin on 02-24-2023 Service comment (Unsp spec) [Interp] Comment . [facility] Comment on above: This liquid based Th inPrep(R) pap test was screened withthe use of an image guided system. Service comment (Unsp spec) [Interp] . . [facility] Liquid-based cerv Pap + CT/G C by ADONAY w reflex to high-risk HPV for ASCUSOrdered By: Dr. Martin on 02-24-2023 Cytology report Cyto stain.thin prep Doc (Cvx/Vag) Comment . [facility] Comment on above: Criteria not met, HP V Genotype not performed.Performed at: - [facility] [id number] Director: Maria Del Rosario Griffith MD, Phone: [phone] at: = - [facility] [id number] Director: Maria Del Rosario Griffith MD, Phone: [phone] No Panel InformationOrdered By: Dr. Martin on 02-24-2023 Pathology report final diagnosis Narrative Comment . [facility] Comment on above: NEGATIVE FOR INTRAEP ITHELIAL LESION OR MALIGNANCY.CELLULAR CHANGES ASSOCIATED WITH ATROPHY ARE PRESENT. Absolute lymphocyte countOrd ered By: Dr. Sutherland on 02-04-2023 Lymphocytes Auto (Unsp spec) [#/Vol] 1.43 10*3/uL 0.83-4.51 [facility] Basophil percentageOrdered B y: Dr. Sutherland on 02-04-2023 Basophils/100 WBC (Bld) 1.2 % 0-1 [facility] Bilirubin [Mass/Vol] 0.60 mg/dL 0.20-1.00 [facility] Comment on above: For patients on eltr ombopag therapy, use of Dimension [place] TBIL is not recommended. Chloride [Moles/Vol] 103 mmol/L 98-107 [facility] Cholesterol [Mass/Vol] 129 mg/dL <200 [facility] Comment on above: <200 mg/dL Desirable 200-240 mg/dL Borderline >240 mg/dL High Risk Eosinophils/100 WBC (Bld) 1.7 % 0-5 [facility] Glucose [Mass/Vol] 108 mg/dL 74-106 [facility] Comment on above: Fasting Glucose resu lt from 100 to 125 mg/dL suggests IMPAIRED HOMEOSTASIS per A.D.A. criteria. Neutrophils (Bld) [#/Vol] 2.2 10*3/uL 2.0-7.7 [facility] Neutrophils/100 WBC (Bld) 53.2 % 47-70 [facility] Potassium [Moles/Vol] 3.6 mmol/L 3.5-5.1 [facility] Protein [Mass/Vol] 7.1 g/dL 6.4-8.2 [facility] Sodium [Moles/Vol] 139 mmol/L 136-145 [facility] Triglyceride [Mass/Vol] 113 mg/dL <199 [facility] Comment on above: The drugs N-Acetylcy steine and Metamizole may falsely depress this assay.Serum Triglycerides Reference Interval Normal <150 mg/dL Borderline high 150 - 199 mg/dL High 200 - 499 mg/dL Very High > or = 500 mg/dL WBC (Bld) [#/Vol] 4.1 10*3/uL 4.4-11.0 [facility] Blood erythrocytes count (nu mber/volume)Ordered By: Dr. Sutherland on 02-04-2023 RBC (Bld) [#/Vol] 4.20 10*6/uL 4.2-5.4 [facility] Blood hemoglobin measurement (mass/volume)Ordered By: Dr. Sutherland on 02-04-2023 Hemoglobin (Bld) [Mass/Vol] 13.1 g/dL 12.0-15.0 [facility] Blood lymphocytes/100 leukoc ytesOrdered By: Dr. Sutherland on 02-04-2023 Lymphocytes/100 WBC (Bld) 34.5 % 19-41 [facility] Blood monocytes/100 leukocyt esOrdered By: Dr. Sutherland on 02-04-2023 Monocytes/100 WBC (Bld) 9.2 % 0-10 [facility] Blood platelet mean volumeOr dered By: Dr. Sutherland on 02-04-2023 Platelet mean volume (Bld) [Entitic vol] 9.6 fL 6.2-12.0 [facility] Determination of erythrocyte mean corpuscular volume (MCV)Ordered By: Dr. Sutherland on 02-04-2023 MCV (RBC) [Entitic vol] 95.2 fL 81-99 [facility] Hematocrit Auto (Bld) [Volum e fraction]Ordered By: Dr. Sutherland on 02-04-2023 Hematocrit (Bld) [Volume fraction] 40.0 % 37-47 [facility] Laboratory - Chemistry and C hemistry - challengeOrdered By: Dr. Sutherland on 02-04-2023 ALP [Catalytic activity/Vol] 64 U/L 45-117 [facility] ALT [Catalytic activity/Vol] 26 U/L 13-56 [facility] CO2 [Moles/Vol] 28.0 mmol/L 21.0-32.0 [facility] Globulin (S) [Mass/Vol] 3.4 g/dL 2.2-4.2 [facility] Urea nitrogen/Creatinine [Mass ratio] 21.7 mg/mg 10-20 [facility] Laboratory - Hematology and Cell countsOrdered By: Dr. Sutherland on 02-04-2023 Erythrocyte distribution width (RBC) [Entitic vol] 45.1 fL 35.1-43.9 [facility] Erythrocyte distribution width (RBC) [Ratio] 12.9 % 11.6-14.6 [facility] Immature granulocytes/100 WBC (Bld) 0.200 % 0.0-0.9 [facility] Comment on above: IG% - Immature Granu locytes (promyelocytes, myelocytes and metamyelocytes) > 1% indicates that a LEFT SHIFT is Present. MCH (RBC) [Entitic mass] 31.2 pg 27.0-32.0 [facility] Nucleated RBC/100 WBC (Bld) [Ratio] 0.5 % 0-5 [facility] MCHC Auto (RBC) [Mass/Vol]Or dered By: Dr. Sutherland on 02-04-2023 MCHC (RBC) [Mass/Vol] 32.8 g/dL 32-36 [facility] No Panel InformationOrdered By: Dr. Sutherland on 02-04-2023 Estimated GFR (MDRD) Amer 157 mL/min >60 [facility] Comment on above: GFR Calc Estimated GFR (MDRD) Non-Af Amer 130 mL/min >60 [facility] Comment on above: Non- GFR Calc Vitamin D 25-Hydroxy 77.9 ng/mL [facility] Comment on above: Vitamin D 25(OH) Sta tus Range Deficiency <20 ng/mL (50nmol/L) Insufficiency 20 - 30 ng/mL (50 - 75 nmol/L) Sufficiency 30 - 100 ng/mL (75 - 250 nmol/L) Toxicity >100 ng/mL (>250 nmol/L) Platelets bldOrdered By: Dr. Sutherland on 02-04-2023 Platelets (Bld) [#/Vol] 299 10*3/uL 150-450 [facility] Serum or plasma albumin wilson urement (mass/volume)Ordered By: Dr. Sutherland on 02-04-2023 Albumin [Mass/Vol] 3.7 g/dL 3.2-5.0 [facility] Serum or plasma albumin/glob ulin mass ratioOrdered By: Dr. Sutherland on 02-04-2023 Albumin/Globulin [Mass ratio] 1.1 {ratio} 0.9-2.4 [facility] Serum or plasma calcium wilson urement (mass/volume)Ordered By: Dr. Sutherland on 02-04-2023 Calcium [Mass/Vol] 9.0 mg/dL 8.5-10.1 [facility] Serum or plasma cholesterol in HDL measurement (mass/volume)Ordered By: Dr. Sutherland on 02-04-2023 Cholesterol in HDL [Mass/Vol] 45 mg/dL >40 [facility] Comment on above: The drugs N-Acetylcy steine and Metamizole may falsely depress this assay. Reference Range HDL <40 mg/dL Low HDL Cholesterol HDL >or= 60 mg/dL High HDL Cholesterol Serum or plasma cholesterol in VLDL measurement (mass/volume)Ordered By: Dr. Sutherland on 02-04-2023 Cholesterol in VLDL [Mass/Vol] 23 mg/dL 5-40 [facility] Serum or plasma creatinine m easurement (mass/volume)Ordered By: Dr. Sutherland on 02-04-2023 Creatinine [Mass/Vol] 0.51 mg/dL 0.55-1.02 [facility] Comment on above: The validity of the calculated GFR & GFRAA in patients over 70 years has not been determined. Clinical correlation is essential. Serum or plasma low density lipoprotein (LDL) cholesterol measurement (mass/volume)Ordered By: Dr. Sutherland on 02-04-2023 Cholesterol in LDL [Mass/Vol] 61 mg/dL 0-130 [facility] Serum or plasma urea nitroge n measurement (mass/volume)Ordered By: Dr. Sutherland on 02-04-2023 Urea nitrogen [Mass/Vol] 11 mg/dL 7-18 [facility] Thin prep Papanicolaou smear with manual screeningOrdered By: Dr. Sutherland on 02-04-2023 Thin prep Papanicolaou smear with manual screening 17 U/L 15-37 [facility] Thin prep Papanicolaou smear with manual screening 8 5-15 [facility] Whole blood hemoglobin A1c/t otal hemoglobin ratio (mass fraction)Ordered By: Dr. Sutherland on 02-04-2023 HbA1c (Bld) [Mass fraction] 6.1 % 3.8-5.6 [facility] Comment on above: Normal < 5.7 % Predi abetic 5.7 - 6.4 % Diabetic >or= 6.5 % Please note range changes. ANES POSTPROC EVALon 023 ANES POSTPROC EVAL HNO ID: [id number] Author: Nohemy Sanabria APRN.CRNA Service: Anesthesiology Author Type: Nurse Embossing Calender Operator Type: Anesthesia Postprocedure Evaluation Filed: 01/04/2023 8:35 AM Note Text: POST ANESTHESIA EVALUATION NOTE : 1960 Procedure Summary Date: 01/04/23 Room / Location: Ambulatory Surgery Anesthesia Start: 809 Anesthesia Stop: 834 Procedure: COLONOSCOPY SCREENING Diagnosis: Encounter for screening for malignant neoplasm of colon (High risk colon cancer surveillance: Personal history of colonic polyps) Scheduled Providers: Teresa Vanegas MD Responsible Provider: Nohemy Sanabria APRN.RESIDENTIAL LIVING ASSISTANT Anesthesia Type: MAC ASA Status: 2 Anesthesia Type: MAC Last Vitals Vitals Value Taken Time BP 126/72 01/04/23 0831 Temp 36.3 ?C (97.4 ?F) 01/04/23 0831 Pulse 64 01/04/23 0831 Resp 16 01/04/23 0831 SpO2 95 % 01/04/23 0831 Post Anesthesia Patient Status Patient Evaluation: PACU. [...] Anesthesia Observations No Documentation SIGNATURE: Nohemy Sanabria APRN.CRNA PATIENT NAME: Bel Lazo DATE: January 04, 2023 TIME: 8:35 AM CSN: [id number] Normal [facility] ANES PRE-OPon 01-04-2023 ANES PRE-OP HNO ID: [id number] Author: Nohemy Sanabria APRN.RESIDENTIAL LIVING ASSISTANT Service: Anesthesiology Author Type: Nurse Embossing Calender Operator Type: Anesthesia Preprocedure Evaluation Filed: 01/04/2023 8:10 AM Note Text: ANESTHESIOLOGY DAY OF SURGERY NOTE : 1960 Procedure Information Date/Time: 01/04/23 0800 Scheduled providers: Teresa Vanegas MD Procedure: COLONOSCOPY SCREENING Location: Ambulatory Surgery Estimated body mass index is 35.43 kg/m? as calculated from the following: Height as of this encounter: 160 cm (5' 3). Weight as of this encounter: 90.7 kg (200 lb). Most recent hematocrit and potassium results: No results found for this basename: HCT,HEMATOCRIT,K,POTAS SIUM Relevant Problems No relevant active problems I [...] none. Vitals Value Taken Time BP 147/73 01/04/23743 Pulse 74 01/04/23743 Resp 16 01/04/23743 Temp [...] 48 hours of Surgery/Procedure. SIGNATURE: Nohemy Sanabria APRN.RESIDENTIAL LIVING ASSISTANT PATIENT NAME: Bel Lazo DATE: January 04, 2023 TIME: 8:09 AM CSN: [id number] Normal [facility] Colonoscopyon 01-04-2023 Colonoscopy [facility] G[facility] Patient Name: Bel Lazo Procedure Date: 01/04/2023 8:12 AM Date of : 1960 Admit Type: Outpatient Age: 62 Room: [place] [address] Gender: Female Note Status: Finalized Attending MD: [...] the patient. Procedure Code(s): --- Professional --- 67805, Colonoscopy, flexible; diagnostic, including collection of specimen(s) by brushing or washing, when performed (separate procedure) CPT copyright 2020 [employer]. All rights reserved. The codes documented in this report are preliminary and upon yarn preparation supervisor review may be revised to meet current compliance requirements. Attending Participation: I personally performed the entire procedure. Scope In: 8:15:40 AM Scope Out: 8:25:26 AM MD Teresa Randall MD 01/04/2023 8:33:14 AM This report has been signed electronically by Teresa Vanegas MD Number of Addenda: 0 Note Initiated On: 01/04/2023 8:12 AM Estimated Blood Loss: Estimated blood loss: none. Normal [facility] Colonoscopy Study observatio non 01-04-2023 [facility] Gastrointestinal [facility] Patient Name: Bel Lazo Procedure Date: 01/04/2023 8:12 AM Date of : 1960 Admit Type: Outpatient Age: 62 Room: [place] [address] Gender: Female Note Status: Finalized Attending MD: [...] the patient. Procedure Code(s): --- Professional --- 91818, Colonoscopy, flexible; diagnostic, including collection of specimen(s) by brushing or washing, when performed (separate procedure) CPT copyright 202 [employer]. All rights reserved. The codes documented in this report are preliminary and upon yarn preparation supervisor review may be revised to meet current compliance requirements. Attending Participation: I personally performed the entire procedure. Scope In: 8:15:40 AM Scope Out: 8:25:26 AM MD Teresa Randall MD 01/04/2023 8:33:14 AM This report has been signed electronically by Teresa Vanegas MD Number of Addenda: 0 Note Initiated On: 01/05/20 (more content not included)... [facility] Radiology Study observation (narrative) Cristal ibanez [facility] HISTORY PHYSICALon HISTORY PHYSICAL HNO ID: [id number] Author: Teresa Vanegas MD Service: Gastroenterology Author [...] Deep Additional Comments: None Teresa Vanegas MD [facility] CNCOon 11-05-2022 CNCO Letter Text [facility] CNPNon 11-05-2022 CNPN Telephone (GSTNOR) BEL LAZO ([id number]) 1960 F Date Time Provider Department 11/05/22 [...] If you do not have a responsible medical driver (family member or friend) with you to take you home, your exam cannot be done with sedation and will be cancelled. Please bring a list of all of your current medications, including any [id number] medications with you. Medications If you take [...] by: Davidson (more content not included)... Normal [facility] Absolute lymphocyte counton 10-13-2022 Lymphocytes Auto (Unsp spec) [#/Vol] 1.66 10*3/uL 0.83-4.51 [facility] Work Phone: Basophil percentageon 2021 Basophils/100 WBC (Bld) 0.7 % 0-1 [facility] Work Phone: Bilirubin [Mass/Vol] 0.70 mg/dL 0.20-1.00 [facility] Work Phone: Comment on above: For patients on eltr ombopag therapy, use of Dimension [place] TBIL is not recommended. Chloride [Moles/Vol] 100 mmol/L 98-107 [facility] Work Phone: Cholesterol [Mass/Vol] 140 mg/dL <200 [facility] Work Phone: Comment on above: <200 mg/dL Desirable 200-240 mg/dL Borderline >240 mg/dL High Risk Eosinophils/100 WBC (Bld) 1.2 % 0-5 [facility] Work Phone: Glucose [Mass/Vol] 110 mg/dL 74-106 [facility] Work Phone: Comment on above: Fasting Glucose resu lt from 100 to 125 mg/dL suggests IMPAIRED HOMEOSTASIS per A.D.A. criteria. Neutrophils (Bld) [#/Vol] 2.0 10*3/uL 2.0-7.7 [facility] Work Phone: Neutrophils/100 WBC (Bld) 49.6 % 47-70 [facility] Work Phone: Potassium [Moles/Vol] 3.6 mmol/L 3.5-5.[facility] Phone: Protein [Mass/Vol] 7.6 g/dL 6.4-8.2 [facility] Work Phone: Sodium [Moles/Vol] 137 mmol/L 136-145 [facility] Work Phone: Triglyceride [Mass/Vol] 167 mg/dL <199 [facility] Work Phone: Comment on above: The drugs N-Acetylcy steine and Metamizole may falsely depress this assay.Serum Triglycerides Reference Interval Normal <150 mg/dL Borderline high 150 - 199 mg/dL High 200 - 499 mg/dL Very High > or = 500 mg/dL WBC (Bld) [#/Vol] 4.1 10*3/uL 4.4-11.0 [facility] Work Phone: Blood erythrocytes count (nu mber/volume)on 07-08-2022 RBC (Bld) [#/Vol] 4.34 10*6/uL 4.2-5.4 [facility] Work Phone: Blood hemoglobin measurement (mass/volume)on 07-08-2022 Hemoglobin (Bld) [Mass/Vol] 13.4 g/dL 12.0-15.0 [facility] Work Phone: Blood lymphocytes/100 leukoc yteson 07-08-2022 Lymphocytes/100 WBC (Bld) 40.3 % 19-41 [facility] Work Phone: Blood monocytes/100 leukocyt eson 07-08-2022 Monocytes/100 WBC (Bld) 8.0 % 0-10 [facility] Work Phone: Blood platelet mean volumeon 07-08-2022 Platelet mean volume (Bld) [Entitic vol] 9.3 fL 6.2-12.0 [facility] Work Phone: Determination of erythrocyte mean corpuscular volume (MCV)on 07-08-2022 MCV (RBC) [Entitic vol] 91.9 fL 81-99 [facility] Work Phone: Hematocrit Auto (Bld) [Volum e fraction]on 07-08-2022 Hematocrit (Bld) [Volume fraction] 39.9 % 37-47 [facility] Work Phone: Laboratory - Chemistry and C hemistry - challengeon 07-08-2022 ALP [Catalytic activity/Vol] 74 U/L 45-117 [facility] Work Phone: [phone] ALT [Catalytic activity/Vol] 21 U/L 13-56 [facility] Work Phone: [phone] CO2 [Moles/Vol] 29.0 mmol/L 21.0-32.0 [facility] Work Phone: [phone] Globulin (S) [Mass/Vol] 3.7 g/dL 2.2-4.2 [facility] Work Phone: [phone] Urea nitrogen/Creatinine [Mass ratio] 19.5 mg/mg 10-20 [facility] Work Phone: [phone] Laboratory - Hematology and Cell countson 07-08-2022 Erythrocyte distribution width (RBC) [Entitic vol] 42.4 fL 35.1-43.9 [facility] Work Phone: [phone] Erythrocyte distribution width (RBC) [Ratio] 12.7 % 11.6-14.6 [facility] Work Phone: [phone] Immature granulocytes/100 WBC (Bld) 0.200 % 0.0-0.9 [facility] Work Phone: [phone] Comment on above: IG% - Immature Granu locytes (promyelocytes, myelocytes and metamyelocytes) > 1% indicates that a LEFT SHIFT is Present. MCH (RBC) [Entitic mass] 30.9 pg 27.0-32.0 [facility] Work Phone: [phone] Nucleated RBC/100 WBC (Bld) [Ratio] 0 % 0-5 [facility] Work Phone: [phone] MCHC Auto (RBC) [Mass/Vol]on 07-08-2022 MCHC (RBC) [Mass/Vol] 33.6 g/dL 32-36 [facility] Work Phone: [phone] Panel Informationon 07-08 Estimated GFR (MDRD) Amer 126 mL/min >60 [facility] Work Phone: [phone] Comment on above: GFR Calc Estimated GFR (MDRD) Non-Af Amer 104 mL/min >60 [facility] Work Phone: Comment on above: Non- GFR Calc Vitamin D 25-Hydroxy 54.1 ng/mL [facility] Work Phone: Comment on above: Vitamin D 25(OH) Sta tus Range Deficiency <20 ng/mL (50nmol/L) Insufficiency 20 - 30 ng/mL (50 - 75 nmol/L) Sufficiency 30 - 100 ng/mL (75 - 250 nmol/L) Toxicity >100 ng/mL (>250 nmol/L) Platelets bldon 07-08-2022 Platelets (Bld) [#/Vol] 305 10*3/uL 150-450 [facility] Work Phone: Serum or plasma albumin wilson urement (mass/volume)on 07-08-2022 Albumin [Mass/Vol] 3.9 g/dL 3.2-5.0 [facility] Work Phone: Serum or plasma albumin/glob ulin mass ratioon 07-08-2022 Albumin/Globulin [Mass ratio] 1.1 {ratio} 0.9-2.4 [facility] Work Phone: Serum or plasma calcium wilson urement (mass/volume)on 07-08-2022 Calcium [Mass/Vol] 9.3 mg/dL 8.5-10.1 [facility] Work Phone: Serum or plasma cholesterol in HDL measurement (mass/volume)on 07-08-2022 Cholesterol in HDL [Mass/Vol] 48 mg/dL >40 [facility] Work Phone: Comment on above: The drugs N-Acetylcy steine and Metamizole may falsely depress this assay. Reference Range HDL <40 mg/dL Low HDL Cholesterol HDL >or= 60 mg/dL High HDL Cholesterol Serum or plasma cholesterol in VLDL measurement (mass/volume)on 07-08-2022 Cholesterol in VLDL [Mass/Vol] 33 mg/dL 5-40 [facility] Work Phone: [phone] Serum or plasma creatinine m easurement (mass/volume)on 07-08-2022 Creatinine [Mass/Vol] 0.61 mg/dL 0.55-1.02 [facility] Work Phone: Comment on above: The validity of the calculated GFR & GFRAA in patients over 70 years has not been determined. Clinical correlation is essential. Serum or plasma low density lipoprotein (LDL) cholesterol measurement (mass/volume)on 07-08-2022 Cholesterol in LDL [Mass/Vol] 59 mg/dL 0-130 [facility] Work Phone: Serum or plasma urea nitroge n measurement (mass/volume)on 07-08-2022 Urea nitrogen [Mass/Vol] 12 mg/dL 7-18 [facility] Work Phone: Thin prep Papanicolaou smear with manual screeningon 07-08-2022 Thin prep Papanicolaou smear with manual screening 15 U/L 15-37 [facility] Work Phone: Thin prep Papanicolaou smear with manual screening 8 5-15 [facility] Work Phone: Whole blood hemoglobin A1c/t otal hemoglobin ratio (mass fraction)on 07-08-2022 HbA1c (Bld) [Mass fraction] 6.4 % 3.8-5.6 [facility] Work Phone: Comment on above: Normal < 5.7 % Predi abetic 5.7 - 6.4 % Diabetic >or= 6.5 % Please note range changes. Laboratory - Chemistry and C hemistry - challengeon 06-17-2022 Cobalamin (Vitamin B12) [Mass/Vol] 338 pg/mL 211-911 [facility] Work Phone: No Panel Informationon 06-17 Thyroid Stimulating Hormone (TSH) 0.59 uIU/mL 0.358-3.74 [facility] Work Phone: Basophil percentageon 2021 Basophil percentage < 0.9 mg/dL 0.55-1.02 [facility] Work Phone: No Panel Informationon 05-06 Bedside Estimated GFR (eGFR) > 60.0000 mL/min >60 [facility] Work Phone: Absolute lymphocyte counton 04-15-2022 Lymphocytes Auto (Unsp spec) [#/Vol] 1.56 10*3/uL 0.83-4.51 [facility] Work Phone: Basophil percentageon 2021 Basophils/100 WBC (Bld) 0.9 % 0-1 [facility] Work Phone: Bilirubin [Mass/Vol] 0.80 mg/dL 0.20-1.00 [facility] Work Phone: Comment on above: For patients on eltr ombopag therapy, use of Dimension [place] TBIL is not recommended. Chloride [Moles/Vol] 101 mmol/L 98-107 [facility] Work Phone: Cholesterol [Mass/Vol] 135 mg/dL <200 [facility] Work Phone: Comment on above: <200 mg/dL Desirable 200-240 mg/dL Borderline >240 mg/dL High Risk Eosinophils/100 WBC (Bld) 2.1 % 0-5 [facility] Work Phone: Glucose [Mass/Vol] 126 mg/dL 74-106 [facility] Work Phone: Comment on above: Fasting Glucose resu lt greater than or equal to 126 mg/dL suggests DIABETES MELLITUS per A.D.A. criteria. Neutrophils (Bld) [#/Vol] 2.3 10*3/uL 2.0-7.7 [facility] Work Phone: Neutrophils/100 WBC (Bld) 52.1 % 47-70 [facility] Work Phone: Potassium [Moles/Vol] 3.8 mmol/L 3.5-5.1 [facility] Work Phone: Protein [Mass/Vol] 7.4 g/dL 6.4-8.2 [facility] Work Phone: Sodium [Moles/Vol] 136 mmol/L 136-145 [facility] Work Phone: Triglyceride [Mass/Vol] 144 mg/dL [facility] Work Phone: Comment on above: The drugs N-Acetylcy steine and Metamizole may falsely depress this assay.Serum Triglycerides Reference Interval Normal <150 mg/dL Borderline high 150 - 199 mg/dL High 200 - 499 mg/dL Very High > or = 500 mg/dL WBC (Bld) [#/Vol] 4.3 10*3/uL 4.4-11.0 [facility] Work Phone: [phone] Blood erythrocytes count (nu mber/volume)on 01-08-2022 RBC (Bld) [#/Vol] 4.42 10*6/uL 4.2-5.4 [facility] Work Phone: [phone] Blood hemoglobin measurement (mass/volume)on 01-08-2022 Hemoglobin (Bld) [Mass/Vol] 13.9 g/dL 12.0-15.0 [facility] Work Phone: [phone] Blood lymphocytes/100 leukoc yteson 01-08-2022 Lymphocytes/100 WBC (Bld) 36.1 % 19-41 [facility] Work Phone: [phone] Blood monocytes/100 leukocyt eson 01-08-2022 Monocytes/100 WBC (Bld) 8.3 % 0-10 [facility] Work Phone: Blood platelet mean volumeon 01-08-2022 Platelet mean volume (Bld) [Entitic vol] 9.5 fL 6.2-12.0 [facility] Work Phone: [phone] Determination of erythrocyte mean corpuscular volume (MCV)on 01-08-2022 MCV (RBC) [Entitic vol] 91.0 fL 81-99 [facility] Work Phone: [phone] Hematocrit Auto (Bld) [Volum e fraction]on 01-08-2022 Hematocrit (Bld) [Volume fraction] 40.2 % 37-47 [facility] Work Phone: [phone] Laboratory - Chemistry and C hemistry - challengeon 01-08-2022 ALP [Catalytic activity/Vol] 74 U/L 45-117 [facility] Work Phone: [phone] ALT [Catalytic activity/Vol] 26 U/L 13-56 [facility] Work Phone: [phone] CO2 [Moles/Vol] 30.0 mmol/L 21.0-32.0 [facility] Work Phone: [phone] Globulin (S) [Mass/Vol] 3.5 g/dL 2.2-4.2 [facility] Work Phone: [phone] Urea nitrogen/Creatinine [Mass ratio] 14.9 mg/mg 10-20 [facility] Work Phone: [phone] Laboratory - Hematology and Cell countson 01-08-2022 Erythrocyte distribution width (RBC) [Entitic vol] 43.6 fL 35.1-43.9 [facility] Work Phone: [phone] Erythrocyte distribution width (RBC) [Ratio] 13.1 % 11.6-14.6 [facility] Work Phone: [phone] Immature granulocytes/100 WBC (Bld) 0.500 % 0.0-0.9 [facility] Work Phone: [phone] Comment on above: IG% - Immature Granu locytes (promyelocytes, myelocytes and metamyelocytes) > 1% indicates that a LEFT SHIFT is Present. MCH (RBC) [Entitic mass] 31.4 pg 27.0-32.0 [facility] Work Phone: [phone] Nucleated RBC/100 WBC (Bld) [Ratio] 0 % 0-5 [facility] Work Phone: [phone] MCHC Auto (RBC) [Mass/Vol]on 01-08-2022 MCHC (RBC) [Mass/Vol] 34.6 g/dL 32-36 [facility] Work Phone: [phone] Panel Informationon 01-08 Estimated GFR (MDRD) Amer 114 mL/min >60 [facility] Work Phone: [phone] Comment on above: GFR Calc Estimated GFR (MDRD) Non-Af Amer 94 mL/min >60 [facility] Work Phone: [phone] Comment on above: Non- GFR Calc Urine Microalbumin/Creatinine Ratio 11.3 mg/g CRE <30 [facility] Work Phone: [phone] Vitamin D 25-Hydroxy 64.7 ng/mL [facility] Work Phone: Comment on above: Vitamin D 25(OH) Sta tus Range Deficiency <20 ng/mL (50nmol/L) Insufficiency 20 - 30 ng/mL (50 - 75 nmol/L) Sufficiency 30 - 100 ng/mL (75 - 250 nmol/L) Toxicity >100 ng/mL (>250 nmol/L) Platelets bldon 01-08-2022 Platelets (Bld) [#/Vol] 330 10*3/uL 150-450 [facility] Work Phone: Serum or plasma albumin wilson urement (mass/volume)on 01-08-2022 Albumin [Mass/Vol] 3.9 g/dL 3.2-5.0 [facility] Work Phone: Serum or plasma albumin/glob ulin mass ratioon 01-08-2022 Albumin/Globulin [Mass ratio] 1.1 {ratio} 0.9-2.4 [facility] Work Phone: Serum or plasma calcium wilson urement (mass/volume)on 01-08-2022 Calcium [Mass/Vol] 9.2 mg/dL 8.5-10.1 [facility] Work Phone: Serum or plasma cholesterol in HDL measurement (mass/volume)on 01-08-2022 Cholesterol in HDL [Mass/Vol] 44 mg/dL [facility] Work Phone: Comment on above: The drugs N-Acetylcy steine and Metamizole may falsely depress this assay. Reference Range HDL <40 mg/dL Low HDL Cholesterol HDL >or= 60 mg/dL High HDL Cholesterol Serum or plasma cholesterol in VLDL measurement (mass/volume)on 01-08-2022 Cholesterol in VLDL [Mass/Vol] 29 mg/dL 5-40 [facility] Work Phone: [phone] Serum or plasma creatinine m easurement (mass/volume)on 01-08-2022 Creatinine [Mass/Vol] 0.67 mg/dL 0.55-1.02 [facility] Work Phone: Comment on above: The validity of the calculated GFR & GFRAA in patients over 70 years has not been determined. Clinical correlation is essential. Serum or plasma low density lipoprotein (LDL) cholesterol measurement (mass/volume)on 01-08-2022 Cholesterol in LDL [Mass/Vol] 62 mg/dL 0-130 [facility] Work Phone: Serum or plasma urea nitroge n measurement (mass/volume)on 01-08-2022 Urea nitrogen [Mass/Vol] 10 mg/dL 7-18 [facility] Work Phone: Thin prep Papanicolaou smear with manual screeningon 01-08-2022 Thin prep Papanicolaou smear with manual screening 16 U/L 15-37 [facility] Work Phone: Thin prep Papanicolaou smear with manual screening 5 5-15 [facility] Work Phone: Thin prep Papanicolaou smear with manual screening 10.3 mg/L NO RANGE EST. [facility] Work Phone: Urine creatinine measurement (mass/volume)on 01-08-2022 Creatinine (U) [Mass/Vol] 91.00 mg/dL NO RANGE EST. [facility] Work Phone: Whole blood hemoglobin A1c/t otal hemoglobin ratio (mass fraction)on 01-08-2022 HbA1c (Bld) [Mass fraction] 6.4 % 3.8-5.6 [facility] Work Phone: Comment on above: Normal < 5.7 % Predi abetic 5.7 - 6.4 % Diabetic >or= 6.5 % Please note range changes. Vital Signs Date Time Vital Sign Value Performing Clinician Facility 03-13-2025 08:34-0400 Diastolic blood pressure 75 mm[Hg] Dr. Jed Sutherland MD Work Phone: [facility] 03-13-2025 08:34-0400 Systolic blood pressure 120 mm[Hg] Dr. Jed Sutherland MD Work Phone: [facility] 03-13-2025 08:26-0400 Body height 160.[address] Jed Sutherland MD Work Phone: [facility] 03-13-2025 08:26-0400 Body mass index (BMI) [Ratio] 37.5 kg/m2 Dr. Jed Sutherland MD Work Phone: [facility] 03-13-2025 08:26-0400 Body weight 96.[address] Jed Sutherland MD Work Phone: [facility] 02-26-2025 09:54-0400 Body height 160.[address] Jed Sutherland MD Work Phone: [phone] [address] 02-26-2025 09:54-0400 Body mass index (BMI) [Ratio] 37.3 kg/m2 Dr. Jed Sutherland MD Work Phone: [phone] [place] [address] 02-26-2025 09:54-0400 Body weight 95.[address] Jed Sutherland MD Work Phone: [facility] 02-26-2025 09:54-0400 Diastolic blood pressure 82 mm[Hg] Dr. Jed Sutherland MD Work Phone: [phone] [place] [address] 02-26-2025 09:54-0400 Heart rate 66 /min Dr. Jed Sutherland MD Work Phone: [phone] [place] [address] 02-26-2025 09:54-0400 Respiratory rate 18 /min Dr. Jed Sutherland MD Work Phone: [facility] 02-26-2025 09:54-0400 SaO2% (BldA) [Mass fraction] 95 % Dr. Jed Sutherland MD Work Phone: [facility] 02-26-2025 09:54-0400 Systolic blood pressure 124 mm[Hg] Dr. Jed Sutherland MD Work Phone: [facility] 05-09-2023 09:38-0400 Body height 160.[address] Jed Sutherland Work Phone: [facility] 05-09-2023 09:38-0400 Body mass index (BMI) [Ratio] 36.5 kg/m2 Dr. Jed Sutherland Work Phone: [facility] 05-09-2023 09:38-0400 Body weight 93.[address] Jed Sutherland Work Phone: [facility] 05-09-2023 09:38-0400 Diastolic blood pressure 83 mm[Hg] Dr. Jed Sutherland Work Phone: [facility] 05-09-2023 09:38-0400 Heart rate 68 /min Dr. Jed Sutherland Work Phone: [facility] 05-09-2023 09:38-0400 Respiratory rate 18 /min Dr. Jed Sutherland Work Phone: [facility] 05-09-2023 09:38-0400 SaO2% (BldA) [Mass fraction] 97 % Dr. Jed Sutherland Work Phone: [facility] 05-09-2023 09:38-0400 Systolic blood pressure 138 mm[Hg] Dr. Jed Sutherland Work Phone: [facility] 02-24-2023 08:42-0400 Body height 160.[address] Jed Sutherland Work Phone: [facility] 02-24-2023 08:40-0400 Body mass index (BMI) [Ratio] 36.8 kg/m2 Dr. Jed Sutherland Work Phone: [facility] 02-24-2023 08:40-0400 Body weight 94.[address] Jed Sutherland Work Phone: [facility] 02-24-2023 08:40-0400 Diastolic blood pressure 86 mm[Hg] Dr. Jed Sutherland Work Phone: [facility] 02-24-2023 08:40-0400 Systolic blood pressure 147 mm[Hg] Dr. Jed Sutherland Work Phone: [facility] 01-04-2023 08:47-0400 Diastolic blood pressure 83 mm[Hg] Teresa Vanegas MD Work Phone: [facility] 01-04-2023 08:47-0400 Heart rate 60 /min Teresa Vanegas MD Work Phone: [facility] 01-04-2023 08:47-0400 Respiratory rate 18 /min Teresa Vanegas MD Work Phone: [facility] 01-04-2023 08:47-0400 SaO2% (BldA) [Mass fraction] 95 % Teresa Vanegas MD Work Phone: [facility] 01-04-2023 08:47-0400 Systolic blood pressure 138 mm[Hg] Teresa Vanegas MD Work Phone: [facility] 01-04-2023 08:31-0400 Body temperature 97.39 [degF] Teresa Vanegas MD Work Phone: [facility] 01-04-2023 07:44-0400 Body height 160 cm Teresa Vanegas MD Work Phone: [facility] 01-04-2023 07:44-0400 Body mass index (BMI) [Ratio] 35.43 kg/m2 Teresa Vanegas MD Work Phone: [facility] 01-04-2023 07:44-0400 Body weight 90.72 kg Teresa Vanegas MD Work Phone: [facility] 05-03-2022 08:27-0400 Body height 160.[address] Jed Sutherland Work Phone: [facility] Work Phone: 05-03-2022 08:27-0400 Body mass index (BMI) [Ratio] 37.3 kg/m2 Dr. Jed Sutherland Work Phone: [facility] Work Phone: 05-03-2022 08:27-0400 Body weight 95.[address] Jed Sutherland Work Phone: [facility] Work Phone: 05-03-2022 08:27-0400 Diastolic blood pressure 86 mm[Hg] Dr. Jed Sutherland Work Phone: [facility] Work Phone: 05-03-2022 08:27-0400 Heart rate 65 /min Dr. Jed Sutherland Work Phone: [facility] Work Phone: 05-03-2022 08:27-0400 Respiratory rate 16 /min Dr. Jed Sutherland Work Phone: [facility] Work Phone: 05-03-2022 08:27-0400 Systolic blood pressure 136 mm[Hg] Dr. Jed Sutherland Work Phone: [facility] Work Phone: 02-18-2022 08:33-0400 Body mass index (BMI) [Ratio] 37.5 kg/m2 Dr. Jed Sutherland Work Phone: [facility] Work Phone: 02-18-2022 08:33-0400 Body weight 96.[address] Jed Sutherland Work Phone: [facility] Work Phone: 02-18-2022 08:33-0400 Diastolic blood pressure 88 mm[Hg] Dr. Jed Sutherland Work Phone: [facility] Work Phone: 02-18-2022 08:33-0400 Systolic blood pressure 112 mm[Hg] Dr. Jed Sutherland Work Phone: [facility] Work Phone: Encounters Encounter Date Encounter Type Care Provider Facility Start: 06-14-2025 [facility] Facility:[facility] Start: 03-13-2025 Encounter for gynecological examination (general) (routine) with abnormal findings Aimee Martin [facility] Start: 03-13-2025 End: 03-13-[address] Aimee Martin MD -[facility] Work Phone: Start: 03-13-2025 End: 03-13-[address] Aimee Martin MD [facility] Start: 03-13-2025 End: 03-13-[address] Jed Sutherland MD Work Phone: [facility] Work Phone: Start: 02-26-2025 End: 02-26-[address] Moise Herman MD -[facility] Work Phone: Start: 02-26-2025 End: 02-26-[address] Jed Sutherland MD Work Phone: [facility] Work Phone: Start: 2025 End: [address] Jed Sutherland MD Work Phone: [facility] Work Phone: Start: 2025 End: [address] Moise Herman MD -Cat Scan [facility] Work Phone: Start: 2025 End: 2025 ambulatory Moise Herman Facility:[facility] Start: 02-06-2025 End: 02-06-[address] Jed Sutherland MD Work Phone: [facility] Work Phone: Start: 02-06-2025 End: 02-06-[address] Aimee Martin MD -[facility] Work Phone: Start: 02-06-2025 End: 02-06-2025 ambulatory Aimee Martin Facility:[facility] Start: 01-18-2025 End: 01-18-[address] Jed Sutherland MD Work Phone: [facility] Work Phone: Start: 01-18-2025 End: 01-18-[address] Jed Sutherland MD -[facility] Start: 01-18-2025 End: 01-18-2025 ambulatory Jed Sutherland Facility:[facility] Start: 08-14-2024 End: 08-14-2024 ambulatory Moise Herman Facility:[facility] Start: 07-23-2024 End: 07-23-2024 ambulatory Jed Sutherland Facility:[facility] Start: 06-22-2024 End: 06-22-2024 ambulatory Jed Sutherland Facility:[facility] Start: 06-18-2024 ambulatory Jed Sutherland Facilit y:[facility] Start: 06-18-2024 ambulatory Jed Sutherland Facilit y:[facility] Start: 06-14-2024 End: 06-14-2024 ambulatory Patty Hernandez NP Facility:[facility] Start: 01-25-2024 End: 01-25-2024 ambulatory [facility] Work Phone: Start: 01-25-2024 End: 01-25-2024 Patient encounter [address] [facility] Work Phone: Start: 01-18-2024 End: 01-18-2024 ambulatory [facility] Work Phone: Start: 01-18-2024 End: 01-18-2024 Patient encounter procedure [facility] Start: 07-20-2023 End: 07-20-[address] Jed Sutherland Work Phone: [facility] Work Phone: Start: 07-20-2023 End: 07-20-[address] Jed Sutherland Work Phone: [facility] Start: 05-19-2023 Non-patient / Non-visit Dr. Jed Sutherland Work Phone: [facility] Work Phone: Start: 05-18-2023 Non-patient / Non-visit Dr. Jed Sutherland Work Phone: [facility] Start: 05-18-2023 End: 05-18-[address] Jed Sutherland Work Phone: [facility] Work Phone: Start: 05-18-2023 End: 05-18-[address] [facility] Work Phone: Start: 05-09-2023 End: 05-09-[address] Jed Sutherland Work Phone: [facility] Work Phone: Start: 03-23-2023 End: 03-23-[address] Jed Sutherland Work Phone: [facility] Work Phone: Start: 03-23-2023 End: 03-23-[address] Jed Sutherland Work Phone: [facility]-Cat [facility] Work Phone: Start: 02-24-2023 End: 02-24-[address] Jed Sutherland Work Phone: [facility] Work Phone: Start: 02-24-2023 End: 02-24-[address] Jed Sutherland Work Phone: [facility]-Laboratory, Specimen Start: 02-24-2023 End: 02-24-[address] Jed Sutherland Work Phone: [facility] Start: 02-04-2023 End: 02-04-[address] Jed Sutherland Work Phone: [facility]-Outpatient Breast Imaging Start: 01-11-2023 End: 01-11-2023 ambulatory [facility] Work Phone: Start: 01-11-2023 End: 01-11-2023 Patient encounter procedure [facility]-Outpatient Bone Densitometry Start: 01-04-2023 End: 01-04-2023 ambulatory TERESA VANEGAS Facility:[facility] Start: 01-04-2023 End: 01-04-2023 Subsequent hospital visit by physician Teresa Vanegas MD Work Phone: Ambulatory Surgery Comment on above: Encounter for screen ing for malignant neoplasm of colon [Z12.11] Start: 12-31-2022 ambulatory Teresa Vanegas MD Work Phone: Ambulatory Surgery Start: 11-05-2022 Telephone encounter Teresa Vanegas MD Work Phone: [facility] Comment on above: screening colon orde r Start: 07-08-2022 End: 07-08-[address] Jed Sutherland Work Phone: [facility] Work Phone: Start: 07-08-2022 End: 07-08-[address] Jed Sutherland Work Phone: [facility] Start: 06-17-2022 End: 06-17-[address] Jed Sutherland Work Phone: [facility] Work Phone: Start: 06-17-2022 End: 06-17-[address] Jed Sutherland Work Phone: [facility] Start: 05-06-2022 End: 05-06-[address] Jed Sutherland Work Phone: [facility]-Cat Scan, [facility] Start: 05-03-2022 End: 05-03-[address] Jed Sutherland Work Phone: [facility] Start: 02-18-2022 End: 02-18-[address] Jed Sutherland Work Phone: [facility] Start: 02-03-2022 End: 02-03-2022 Patient encounter procedure [facility] Start: 01-08-2022 End: 01-08-2022 Patient encounter procedure [facility], [place] [facility] Procedures Date Procedure Procedure Detail Performing Clinician Start: [address] Kitty Sutherland MD Work Phone: Start: 2025 CT angiography of ch est with contrast Dr. Jed Sutherland MD Work Phone: Start: 02-06-2025 Screening mammography Fide Sutherland MD Work Phone: Start: 01-18-2025 Urine microalbumin/creatinine ratio measurement Dr. Jed Sutherland MD Work Phone: Start: 01-18-2025 Urnls dip stick/tabl et reagent auto microscopy Dr. Jed Sutherland MD Work Phone: Start: 01-18-2025 Vitamin D, 25-hydrox y measurement Dr. Jed Sutherland MD Work Phone: Comment on above: Vitamin D StatusDefi ciency: <20 ng/mL (50nmol/L)Insufficiency: 20-30 ng/mL (50-75 nmol/L)Sufficiency: 30-100 ng/mL (75-250 nmol/L)Toxicity: >100 ng/mL (>250 nmol/L) Start: 01-25-2024 Plain x-ray of pelvi s and lower extremity Start: 05-18-2023 Cardiovascular stres s test using pharmacologic stress agent Dr. Jed Sutherland Work Phone: Start: 03-23-2023 CT angiography of ch est with contrast Dr. Jed Sutherland Work Phone: Start: 02-04-2023 Screening mammography Fide Sutherland Work Phone: Start: 01-11-2023 Dual energy X-ray absorptiometry Start: 01-04-2023 Colonoscopy flx dx w /collj spec when pfrmd Inessa Prabhakar PA-C Work Phone: Start: 01-04-2023 Colonoscopy Teresa quevedo MD Work Phone: Start: 05-06-2022 CT of thorax with contrast Dr. Jed Sutherland Work Phone: Start: 02-03-2022 Screening mammography Start: 11-16-2017 Colonoscopy Teresa quevedo MD Work Phone: Plan of Treatment Date Care Activity Detail Author Start: 2033 RSV Vaccine (1 - 1-d ose 75+ series) RSV Vaccine (1 - 1-dose 75+ series) [facility] Start: 05-22-2028 Urine microalbumin profile DTaP,Tdap,Td Vaccine (2 - Td or Tdap) [facility] Start: 01-05-2028 Screening for malign ant neoplasm of colon [facility] Start: 05-27-2024 Covid-19 Vaccine ( season) Covid-19 Vaccine ( season) [facility] Start: 05-27-2024 Influenza vaccination Influenza Vacc ine (#1) [facility] Start: 09-26-2023 Advance Directive Discussion Advance Directive Discussion [facility] Start: 05-27-2023 Influenza vaccination INFLUENZ A (Season Ended) [facility] Start: 2023 Pneumococcal Vaccine : 65+ (2 of 2 - PCV) Pneumococcal Vaccine: 65+ (2 of 2 - PCV) [facility] Start: 2023 Screening for osteoporosis Bone Density Screening [facility] Start: 11-16-2022 Colonoscopy COLONOSCOPY [facility] Start: 11-16-2022 COLORECTAL CANCER SCREENING COLORECTAL CANCER SCREENING [facility] Start: 09-26-2022 DEPRESSION ASSESSMENT DEPRESSION ASS ESSMENT [facility] Start: 05-27-2022 Influenza vaccination INFLUENZA (#1) [facility] Start: 05-02-2020 LIPID SCREEN LIPID SCREEN [facility] Start: 02-20-2008 SHINGRIX VACCINE (1 of 2) SHINGRIX VACCINE (1 of 2) [facility] Start: 2003 COLOGUARD (FIT-DNA) COLOGUARD (FIT-D NA) [facility] Start: [address] COLONOGRAPHY [facility] Start: 2003 DIABETES SCREEN DIABETES SCREEN [facility] Start: 2003 Diabetes Screening Diabetes Screenin g [facility] Start: 2003 FECAL OCCULT BLOOD FECAL OCCULT BLOO D [facility] Start: 2003 Lipid panel Lipid Screening [facility] Start: 2003 LIPID SCREEN LIPID SCREEN [facility] Start: 2003 Screening for malign ant neoplasm of colon [facility] Start: 2003 SIGMOIDOSCOPY SIGMOIDOSCOPY [facility] Start: 1998 Mammography MAMMOGRAM [facility] Start: 1998 Screening for malign ant neoplasm of breast Mammogram Screening [facility] Start: 02-20-1988 HPV TESTING HPV TESTING [facility] Start: 1979 PAP TESTING PAP TESTING [facility] Start: 1977 Urine microalbumin profile DTAP,TDAP,TD (1 - Tdap) [facility] Start: 02-20-1976 Anxiety Screening Anxiety Screening [facility] Start: 02-20-1976 Depression Screening Depression Scre ening [facility] Start: 02-20-1976 HEPATITIS C SCREENING HEPATITIS C [facility] Start: 02-20-1976 Hepatitis C screening [facility] Start: 02-20-1976 HIV SCREENING HIV SCREENING [facility] Start: 1960 COVID-19 VACCINE (#1) COVID-19 VACCI NE (#1) [facility] MG Breast - bilatera l Screening [facility] Work Phone: End: 11-05-2023 Screening colonoscopy COLONOSCOPY SCREENING Endoscopy Routine Encounter for screening for malignant neoplasm of colon 1 Occurrences starting 11/05/2022 until 11/05/2023 [facility] Work Phone: Comment on above: 1 Occurrences starti ng 11/05/2022 until 11/05/2023 [facility] Immunizations Immunization Date Immunization Notes Care Provider Fa jessica 06-11-2020 influenza virus vacc ine, unspecified formulation Teresa Vanegas MD Work Phone: [facility] Payers Date Payer Category Payer Self-pay [id number] 2022 Medicare MMO MEDICARE MMO MEDADVANTAGE HMO [id number] 2022-Present [phone] [address] [place] [address] [facility] [id number] 2016 Medicare [id number] Unknown [facility] PACKAGE PLAN [id number] Unknown [id number] 62 Unknown [id number] 62 Unknown [id number] 62 Unknown [id number] [id number] 62 Unknown [id number] [id number] 62 Unknown [id number] [id number] 62 Unknown [id number] [id number] 62 Unknown [id number] [id number] 62 Unknown [id number] [id number] 62 Unknown [id number] [id number] 62 Unknown [id number] [id number] 62 Unknown [id number] [id number] 62 Unknown [id number] 62 Social History Date Type Detail Facility Start: 04-27-2021 End: 05-09-2023 Tobacco smoking status GAIS Unknown if ever smoked [facility] Start: 1960 Sex Assigned At Female W [facility] Start: 05-07-2011 End: 05-09-2023 Tobacco smoking status NHIS Never smoked tobacco [facility] Work Phone: Start: 05-07-2011 Tobacco use and exposure Smokeless tobacco non-user [facility] Work Phone: Start: 11-16-2017 End: 01-04-2023 Alcohol intake Current drinker of alcohol (finding) [facility] Start: 11-16-2017 End: 01-04-2023 Alcohol intake [facility] Start: 01-17-2007 Alcohol Comment oce a week [facility] Start: 1960 [facility] Start: 01-04-2023 Tobacco use panel [facility] Start: 01-23-2025 Sex Female (finding) [facility] Medical Equipment Procedure Code Equipment Code Equipment Origin al Text Equipment Identifier Dates Start: 09-14-2017 Clinical Notes 02-01-2007 to 03-13-2025 Note Date & Type Note Facility 03-13-2025 Progress note [facility] 02-26-2025 Evaluation note Diagnosis Onset Date Resolution Atherosclerotic heart disease acute February 26, 2025 9:50am Chest pain of uncertain etiology acute February 26, 2025 9:50am Essential hypertension chronic 2024 9:50am Hyperlipemia chronic February 26 9:50am Thoracic aortic aneurysm without rupture chronic February 26, 2025 9:50am Mixed incontinence urge and stress acute March 13, 2025 8:24am Encounter for routine gynecological examination noneactive February 242024 8:24am [facility] Work Phone: 1(514) 664-799105-28-2025 Radiology Diagnostic study note [facility] Imaging Services [address] [place] [address] [id number] CTA Chest W/WO Contrast MR#: [id number] Acct: [id number] Name: BEL LAZO Rep #: [id number] : 1960 F 65 From: Dominick Monae MD PCP: SUSAN Samano Status: REG CLI Study:CTA Chest W/WO Contrast Date of Exam: 02/19/25 Exam# [id number] Ordering Dr: Shira Herman MD PROCEDURE: CTA CHEST W/WO CONTRAST 2025 REASON FOR EXAM: H/O THORACIC AORTIC ANEURSYM 4.0CM TECHNIQUE: CTA axial imaging of the chest with intravenous contrast. Multiplanar and multisequence images wereobtained. PATIENT PREPARATION: Per protocol CONTRAST: Isovue-300 VOLUME: 100 mL One or more dose reduction techniques were used (e.g., Automated exposure control, adjustment of the mA and/or kV according to patient size, use of iterative reconstruction technique). RADIATION DOSE SUMMARY: CTDlvol: 14 mGy DLP: 574.6 mGycm . COMPARISON: None FINDINGS: Hardware: None Lymph nodes: No suspicious lymph nodes are seen. Heart: Unremarkable. No evidence of coronary artery calcification. Thoracic Aorta: There is dilatation of the ascending thoracic aorta with a transverse dimension of 42.5 mm. Atherosclerotic plaque formation of the aortic arch. Pulmonary Vessels: No evidence of acute pulmonary emboli through the major subsegmental branches. Lungs and Airways: Mild degree of emphysematous changes. Increased linear markings at the left lungbase with areas of confluence suggestive of scarring. Mild scarring at the right lung base. Pleura: No evidence of pleural effusion. Upper Abdomen: Moderate-sized hiatal hernia. Bones: Degenerative changes of the thoracic spine. CT/CTA Chest W/WO Contrast IMPRESSION: Dilatation of the root of the ascending thoracic aorta with a transverse dimension of 42.5 mm. Linear scarring at the lung bases. Hiatal hernia. Reading Location: [facility] CC: ANAESTHESIOLOGIST-C Sarah Key; Dr. Moise Herman MD ~ General Labor: Signed [facility]06-01-2023 NotePap Smear Specimen AdequacyJune 2022 11:09amComment.Satisfactory for evaluation. Endocervical component may not bedistinguished in cases of atrophy.[facility] A#[id number] Mansfield HospitalComment on above:Satisfactory for evaluation. Endocervical component may not bedistinguished in cases of atrophy.02-24-2023 NotePap Smear Specimen AdequacyJune 2022 11:09amComment.Satisfactory for evaluation. Endocervical component may not bedistinguished in cases of atrophy.[facility] A#[id number] Mansfield HospitalComment on above:Satisfactory for evaluation. Endocervical component may not bedistinguished in cases of atrophy. 02-24-2023 NotePap Smear Specimen AdequacyJune 2022 11:09amComment. Satisfactory for evaluation. Endocervical component may not bedistinguished in cases of atrophy.[facility] A#[id number] Mansfield HospitalComment on above:Satisfactory for evaluation. Endocervical component may not bedistinguished in cases of atrophy.01-04-2023 NoteHNO ID: [id number] Author: Celestina Whitt RN Service: ? Author Type: Registered Nurse Type: Nursing Progress Note Filed: 01/04/2023 9:08 AM Note Text: Dr. Vanegas at bedside to speak to patient. Verbalizes understanding. OK to d/c.[facility]04-11-2023 Nurse Note* Celestina Whitt RN - 01/04/2023 9:[address] Vanegas at bedside to speak to patient. Verbalizes understanding. OK to d/c. [facility]04-11-2023 Nurse Note* Celestina Whitt RN - 01/04/2023 9:[address] Vanegas at bedside to speak to patient. Verbalizes understanding. OK to d/c. documented in this encounterMag[facility] Hospital04-11-2023 History and physical note * Teresa Vanegas MD - 01/04/2023 8:00 AM EDT HISTORY AND PHYSICAL Bel Lazo, 62 year [...] Deep Additional Comments: None Teresa Vanegas MD [facility] Work Phone: [phone] History and physical note* Teresa Vanegas MD - 01/04/2023 8:00 AM EDT HISTORY AND PHYSICAL Bel Lazo, 62 year [...] Deep Additional Comments: None Teresa Vanegas MD documented in this encounterMagruder [facility] Hospital02-10-2023 Instructions* Patient Instructions* Inessa Prabhakar PA-C - 11/05/2022 3:07 PM [...] If you do not have a responsible medical driver (family member or friend) withyou to take you home, your exam cannot be done with sedation and will be cancelled. Please bring a list of all of your current medications, including any Aghz-efc-Aujergx medications with you. Medications If you take insulin, diabetic medications or blood thinners such as Coumadin (warfarin), Plavix (clopidogrel), Ticlid (ticlopidine hydrochloride), Agrylin (anagrelide), Xarelto (Rivaroxaban), Pradaxa(Dabigatran), Eliquis (Apixaban), and Effient (Prasugrel). You MUST [...] every 15 minutes for a total of 2glasses. You may continue to drink clear liquids up to (three) 3 hours before your exam. 2 08/2019 documented in this encounterMagruder [facility] Hospital02-10-2023 Miscellaneous Notes* Addendum Note - Inessa Prabhakar PA-C - 11/05/2022 3:07 PM ESTAddended by: INESSA PRABHAKAR on: 11/05/2022 03:07 PM Modules accepted: Orders, SmartSet * Telephone Encounter - Carina Farris - 11/05/2022 2:[address] screening colonoscopy order for ASC. Carina Siddiqui documented in this encounterMagruder [facility] Hospital05-09-2007 History of Past illness Narrative* Problem Noted Date Resolved Date Abdominal or pelvic swelling , mass, or lump, right lower quadrant 02/01/2007 07/30/2011 documented as of this encounter (statuses as of 11/05/2022) [facility]05-09-2007 History of Past illness Narrative* Problem Noted Date Resolved Date Abdominal or pelvic swelling , mass, or lump, right lower quadrant 02/01/2007 07/30/2011 documented as of this encounter (statuses as of 12/31/2022) [facility] HospitalEvaluation noteNo assessment information [facility]WB[facility] Work Phone: Evaluation note* Diagnosis Onset Date Resolution Status Encounter for routine gynecological examination noneactive Essential hypertension chron ic Hyperlipemia chronic Thoracic aortic aneurysm without rupture [facility] Work Phone: Evaluation note* Diagnosis Onset Date Resolution Status Essential hypertension chron ic Hyperlipemia chronic Thoracic aortic aneurysm without rupture chronic [facility] Work Phone: Evaluation note* Diagnosis Encounter for screening for malignant neoplasm of colon- Primary Special screening for malignant neoplasms, colon documented in this encounter [facility]* Diagnosis Onset Date Resolution Status Encounter for routine gynecological examination noneactive [facility] Work Phone: Evaluation note* Diagnosis Onset Date Resolution Status Encounter for routine gynecological examination noneactive Chest pain of uncertain etiology acute Essential hypertension chron ic Hyperlipemia chronic Thoracic aortic aneurysm without rupture chronic [facility] Work Phone: Evaluation note* Diagnosis Onset Date Resolution Status Chest pain of uncertain etiology acute Essential hypertension chron ic Hyperlipemia chronic Thoracic aortic aneurysm without rupture [facility] Work Phone: Evaluation note* Diagnosis Encounter for screening for malignant neoplasm of colon Special screening for malignant neoplasms, colon documented in this encounter [facility] Author Aimee Martin [facility] Note Date/Time March 13, 2025 9:08 am [facility] [address], [address] [place] [address] OFFICE VISIT Date of Service: 03/13/25 MR#: [id number] Acct: [id number] Name: BEL LAZO Rep #: [id number] : 1960 Provider: Dr. 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: No Is patient in pain?: No Allergies codeine Allergy (Severe, Verified 03/13/25 08:30) critical allergy Penicillins Allergy (Severe, Verified 03/13/25 08:30) critical allergy Sulfa (Sulfonamide Antibiotics) Allergy (Severe, Verified 03/13/25 08:30) allergic Medications ?Medication ?Instructions ?Recorded ?Confirmed ?Type cholecalciferol (vitamin D3) 25 25 mcg PO DAILY 03/13/25 History mcg (1,000 unit) capsule fluticasone propionate 50 1 spray intranasal DAILY 11/1603/13/25 History mcg/actuation nasal spray,suspension (Allergy Relief (fluticasone)) atorvastatin 20 mg tablet (Lipitor) 20 mg PO QPM 05/0303/13/25 History escitalopram oxalate 10 mg tablet 10 mg PO DAILY 05/0303/13/25 History losartan 50 mg tablet 50 mg PO DAILY #90 tabs 02/2403/13/25 Rx aspirin 81 mg tablet,delayed 81 mg PO QDAY #90 tabs 03/13/25 Rx release hydrochlorothiazide 25 mg tablet 25 mg PO QDAY #90 tab s 07/20/24 03/13/25 Rx pantoprazole 20 mg tablet,delayed 20 mg PO QDAY 03/13/25 History release cranberry 500 mg capsule 500 mg PO QDAY 02/26/2502/24 History tirzepatide 2.5 mg/0.5 mL mg subcut QWEEK 02/26/25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
--- NOTE | 2025-06-14 08:00 | RAD_ITS ---
PROCEDURE: INJ/ASP RANDOLPH JT SHOULD/HIP/KNEE 06/14/2025 REASON FOR EXAM: PRIMARY OSTEOARTHRITIS, RIGHT SHOULDER,IMPINGEMENT TECHNIQUE: Procedure Code: RADINJ/ASP MJ Modality: DX Procedure: INJ/ASP RANDOLPH JT SHOULD/HIP/KNEE. The procedure as well as the benefits and possible complications including infection and bleeding were explained to the patient. Informed consent was obtained. The patient was in the supine position. The overlying skin was prepped and draped in the usual sterile fashion. Following local anesthetic application, a 22 gauge spinal needle was placed into the right shoulder joint. 2 cc of Isovue-300 was injected for confirmation. Following this, 12 mg of betamethasone and 4 cc of 1% lidocaine was injected into the joint. The patient tolerated the procedure well. Radiation dose: Fluoroscopy time: 34 seconds. Radiation dose: 5 mGy. COMPARISON: None FINDINGS: Successful right shoulder injection. RAD/Inj/Asp Randolph Jt Should/Hip/Knee IMPRESSION: Successful right shoulder injection. The patient tolerated the procedure well. Reading Location: [place] [address]
[2025-06-14] MEDS: Lidocaine 2% (5ml sdv) 5 ML VIAL.MPF INFILT (08:10)
[2025-06-14] MEDS: Betamethasone/Betamethasone 30 MG/5 ML Vial 12 MG OPERA.SITE (08:15)
[2025-06-14] MEDS: Lidocaine 1% (5 ml sdv) 5 ML Vial 4 ML OPERA.SITE (08:15)
== END | disposition home or self-care (01) ==
PROVIDERS: PCP Nurse Practitioner Family; Referring Provider Physician Assistant Surgical; Visit Provider Physician Assistant Surgical
DX: M19.011 Primary osteoarthritis, right shoulder (principal); M75.41 Impingement syndrome of right shoulder
CPT/HCPCS: 20610; 77002; J0702

== ENCOUNTER → 2025-08-28 | Outpatient (CLI) | payer MEDICARE, SELFPAY ==
[2025-08-28 12:36] LABS: Hematocrit 36.6 % (37-47); Hemoglobin 12.6 g/dL (12.0-15.0); Immature Granulocytes Count 0.010 X10^3/uL (0.0-0.0); Mean Corp Hgb Conc 34.4 g/dL (32-36); Mean Corpuscular Volume 90.8 fL (81-99); Mean Platelet Vol. 8.8 fl (6.2-12.0); NRBC Flagged by Analyzer 0 % (0-5); Platelet Count 303 K/mm3 (150-450); RBC Distribution Width CV 12.6 % (11.6-14.6); RBC Distribution Width SD 41.4 fl (35.1-43.9); Red Blood Count 4.03 M/mm3 (4.2-5.4); White Blood Count 3.3 K/mm3 (4.4-11.0)
[2025-08-28 13:24] LABS: AST(SGOT) 20 U/L (<=31); Alanine Aminotransfer ALT/SGPT 17 U/L (<=34); Albumin, Serum 4.4 g/dL (3.4-4.8); Alkaline Phosphatase 76 U/L (35-104); Anion Gap 12 (5-15); BUN 9 mg/dL (4-19); BUN/Creat Ratio 16.2 RATIO (10-20); Calcium,Total 9.7 mg/dL (7.6-11.0); Carbon Dioxide 25.2 mmol/L (21.0-32.0); Chloride 93 mmol/L (98-108); Cholesterol 138 mg/dL (<=200); Globulin 2.7 g/dL (2.2-4.2); Glucose 113 mg/dL (70-99); Low Density Lipoprotein Calc. 74 mg/dL; Potassium 4.1 mmol/L (3.3-5.1); Triglycerides 121 mg/dL; Very Low Density Lipoprotein 24 mg/dL (5-40); Vitamin D,25 Hydroxy 50.3 ng/mL (30-100); cholesterol:hdl ratio screen 3.24
== END | disposition home or self-care (01) ==
LOC: BFHLAB 08:41
PROVIDERS: PCP Nurse Practitioner Family; Visit Provider Nurse Practitioner Family
DX: E11.59 Type 2 diabetes mellitus with other circulatory complications (principal); E55.9 Vitamin D deficiency, unspecified; E78.5 Hyperlipidemia, unspecified; I10 Essential (primary) hypertension
CPT/HCPCS: 36415; 80053; 80061; 82306; 83036; 85025